=== PATIENT | male | born 1960 | race Caucasian/White ===

== ENCOUNTER → 2019-12-02 14:56 | Outpatient (CLI) | payer BC, SELFPAY ==
[2019-12-02 14:23] VITALS: BMI 26.9
[2019-12-02 17:01] LABS: Absolute Lymphocyte Count 1.12 X10^3/uL (0.83-4.51); Absolute Neutrophil Count 3.9 X10^3/uL (2.0-7.7); Basophil# 0.04 X10^3/uL; Basophil% 0.7 % (0-1); Eosinophil# 0.33 X10^3/uL; Eosinophils% 5.7 % (0-5); Hematocrit 42.1 % (40-54); Hemoglobin 13.9 g/dL (13.0-16.5); Lymphocyte # 1.12 X10^3/ul (4.0); Lymphocyte % 19.2 % (19-41); Mean Corpuscular Hgb 30.9 pg (27.0-32.0); Mean Corpuscular Volume 93.6 fL (80-94); Monocyte# 0.44 X10^3/uL; Monocyte% 7.5 % (0-10); NRBC Flagged by Analyzer 0 % (0-5); Neutrophil # 3.89 X10^3/uL (2.7-7.7); Neutrophil % 66.6 % (47-70); Platelet Count 235 K/mm3 (150-450); RBC Distribution Width CV 11.9 % (11.6-14.6); RBC Distribution Width SD 40.5 fl (35.1-43.9); White Blood Count 5.8 K/mm3 (4.4-11.0)
[2019-12-02 17:04] LABS: PSA,Total - Annual Screen 2.42 ng/mL (0.00-4.00)
[2019-12-02 17:17] LABS: ALB/GLOB Ratio 0.8 RATIO (0.9-2.4); AST(SGOT) 24 U/L (15-37); Alanine Aminotransfer ALT/SGPT 44 U/L (16-61); Albumin, Serum 3.4 g/dL (3.2-5.0); Alkaline Phosphatase 152 U/L (45-117); Anion Gap 4 (5-15); BUN 16 mg/dL (7-18); BUN/Creat Ratio 18.7 RATIO (10-20); Calcium,Total 8.4 mg/dL (8.5-10.1); Chloride 102 mmol/L (98-107); Cholesterol 153 mg/dL (200); Creatinine, Serum 0.86 mg/dL (0.70-1.30); EST Glomerular Filtration Rate 98 mL/min (>60); Est Glom Filt Rate - Afr Amer 118 mL/min (>60); Globulin 4.4 g/dL (2.2-4.2); Glucose 86 mg/dL (74-106); High Density Lipoprotein 37 mg/dL; Magnesium 2.1 mg/dL (1.6-2.6); Protein, Total 7.8 g/dL (6.4-8.2); Sodium Level 135 mmol/L (136-145); Thyroid Stim Hormone (TSH) 1.96 uIU/mL (0.358-3.74); Triglycerides 76 mg/dL; Very Low Density Lipoprotein 15 mg/dL (5-40)
== END ==
PROVIDERS: PCP Internal Medicine; Referring Provider Nurse Practitioner Family; Visit Provider Nurse Practitioner Family
DX: Z00.00 Encounter for general adult medical examination without abnormal findings (principal); R00.2 Palpitations; Z72.0 Tobacco use
CPT/HCPCS: 36415; 80053; 80061; 83735; 84153; 84443; 85025; G0103

== ENCOUNTER → 2019-12-09 09:14 | Outpatient (CLI) | payer BC, SELFPAY ==
[2019-12-02 14:23] VITALS: BMI 26.9
== END ==
PROVIDERS: PCP Internal Medicine; Referring Provider Nurse Practitioner Family; Visit Provider Nurse Practitioner Family
DX: R00.2 Palpitations (principal); Z72.0 Tobacco use
CPT/HCPCS: 93225; 93226

== ENCOUNTER → 2020-02-11 06:37 | Outpatient (CLI) | payer BC, SELFPAY ==
[2020-01-22 10:53] VITALS: BMI 26.9
--- NOTE | 2020-02-24 17:19 | STRESSREP ---
Stress Test Report Date: 02/11/2020 Procedure: Exercise tolerance test/imaging study Indications: Palpitations, arrhythmia Consent: Per the patient Procedure: The patient exercised on a Slade protocol for 8 minutes achieving a peak heart rate of 137 bpm (84% predicted maximal heart rate) with a peak blood pressure 184/82 mmHg and a peak MET capacity of 10.1 METs. The baseline ECG demonstrated normal sinus rhythm. The peak exercise ECG demonstrated no significant ischemic changes. EKG during recovery revealed no significant ischemic changes [There were no cardiac dysrhythmias pretest, during exercise, or recovery]. The functional capacity was considered normal for age. There was [no complaint of chest discomfort during exercise or recovery]. The examination was discontinued secondary to achieving target heart rate. Impression: 1. Technically adequate (percent predicted maximal heart rate greater than 85%) exercise tolerance test 2. Stress test is negative for exercise-induced EKG changes of ischemia 3. The test test is negative for exercise-induced chest pain 4. Functional capacity is normal for age 5. Nuclear images pending Myocardial perfusion imaging study: Technique: The patient was injected with 15 mCi of technetium 99m Cardiolite and subsequently rest SPECT Cardiolite nuclear imaging was obtained in the horizontal long, vertical long, and short axis views. The patient exercised on a Slade protocol. Please see above for details. The patient was injected with 45 mCi of technetium 99m Cardiolite and subsequently stress SPECT Cardiolite nuclear imaging was obtained in the horizontal long, vertical long, and short axis views. A gated Cardiolite study at peak stress was obtained. Interpretation: Rest and stress SPECT Cardiolite nuclear imaging status post realignment, normalization, and attenuation correction, demonstrates normal myocardial radioisotope uptake. The gated Cardiolite study demonstrates no significant regional wall motion abnormalities. The reported LVEF is 70%. Impression: 1. There is no evidence of significant ischemia or infarction. 2. The gated Cardiolite study reports an LVEF of 70%. This note was generated with [employer] software. It may contain incorrect words, spelling, and punctuation that were not noted in checking the note before signing.
== END ==
PROVIDERS: PCP Internal Medicine; Referring Provider Internal Medicine; Visit Provider Internal Medicine
DX: R00.2 Palpitations (principal); I49.9 Cardiac arrhythmia, unspecified
CPT/HCPCS: 78452; 93017; A9500; A4216

== ENCOUNTER 2021-05-10 16:40 | Outpatient (CLI) | payer BC, SELFPAY ==
[2021-05-10 16:58] VITALS: BP 133/81; PULSE 83; RESP 16; TEMP 37.1; O2SAT 97; BMI 26.4
[2021-05-10] MEDS: 0.9% Saline Lock 10 ML Syringe IV (16:58)
[2021-05-10 17:24] VITALS: BP 125/81; PULSE 87; RESP 16; TEMP 36.8; O2SAT 98
[2021-05-10 18:17] VITALS: BP 119/76; PULSE 80; RESP 16; TEMP 36.9; O2SAT 98
== END 2021-05-10 23:59 | disposition home or self-care (01) ==
LOC: MS3OUT 16:41 → MS3 16:41
PROVIDERS: PCP Internal Medicine; Referring Provider Nurse Practitioner Adult Health; Visit Provider Nurse Practitioner Adult Health
DX: U07.1 COVID-19 (principal)
CPT/HCPCS: J7050; M0243; A4216; Q0244

== ENCOUNTER → 2022-02-27 | Outpatient (CLI) | payer BC, SELFPAY ==
--- NOTE | 2022-02-27 10:10 | RAD_ITS ---
INDICATION: Voice change. Lump in the throat. Smoking history. EXAMINATION/TECHNIQUE: X-RAY - XR Chest 2 Views COMPARISON: None. FINDINGS: LINES/DEVICES: None. LUNGS: No consolidation, edema or effusion. No pneumothorax. MEDIASTINUM AND CARDIOVASCULAR STRUCTURES: Cardiac silhouette not enlarged. Central airways and mediastinal contour are unremarkable. BONES AND SOFT TISSUES: Degenerative changes of the thoracic spine. RAD/Chest PA and Lateral IMPRESSION: No acute cardiopulmonary disease. Electronically Signed: Judah Jackson DO at 20:41 EDT ,
== END | disposition home or self-care (01) ==
LOC: RAD 10:08
PROVIDERS: PCP Internal Medicine; Referring Provider Internal Medicine; Visit Provider Internal Medicine
DX: R22.1 Localized swelling, mass and lump, neck (principal); F17.200 Nicotine dependence, unspecified, uncomplicated; R05.9 Cough, unspecified; R49.9 Unspecified voice and resonance disorder
CPT/HCPCS: 71046

== ENCOUNTER → 2023-11-27 | Outpatient (CLI) | payer BC, SELFPAY ==
[2023-11-27 16:21] LABS: Absolute Lymphocyte Count 2.13 X10^3/uL (0.83-4.51); Absolute Neutrophil Count 3.4 X10^3/uL (2.0-7.7); Basophil# 0.03 X10^3/uL; Basophil% 0.5 % (0-1); Eosinophil# 0.47 X10^3/uL; Eosinophils% 7.1 % (0-5); Hematocrit 45.3 % (40-54); Hemoglobin 15.3 g/dL (13.0-16.5); Lymphocyte # 2.13 X10^3/ul (0.83-4.51); Lymphocyte % 32.2 % (19-41); Mean Corp Hgb Conc 33.8 g/dL (32-36); Mean Corpuscular Hgb 30.8 pg (27.0-32.0); Mean Corpuscular Volume 91.1 fL (80-94); Mean Platelet Vol. 9.3 fl (6.2-12.0); Monocyte# 0.62 X10^3/uL; Monocyte% 9.4 % (0-10); NRBC Flagged by Analyzer 0 % (0-5); Neutrophil # 3.35 X10^3/uL (2.7-7.7); Neutrophil % 50.6 % (47-70); Platelet Count 224 K/mm3 (150-450); RBC Distribution Width SD 40.2 fl (35.1-43.9); Red Blood Count 4.97 M/mm3 (4.6-6.2); White Blood Count 6.6 K/mm3 (4.4-11.0)
[2023-11-27 16:56] LABS: Vitamin D,25 Hydroxy 38.1 ng/mL
[2023-11-27 17:04] LABS: AST(SGOT) 17 U/L (15-37); Alanine Aminotransfer ALT/SGPT 24 U/L (16-61); Albumin, Serum 3.7 g/dL (3.2-5.0); Alkaline Phosphatase 89 U/L (45-117); Anion Gap 5 (5-15); BUN 12 mg/dL (7-18); BUN/Creat Ratio 14.1 RATIO (10-20); Chloride 102 mmol/L (98-107); Cholesterol 160 mg/dL (200); Creatinine, Serum 0.85 mg/dL (0.70-1.30); EST Glomerular Filtration Rate 97 mL/min (>60); Est Glom Filt Rate - Afr Amer 117 mL/min (>60); Globulin 3.6 g/dL (2.2-4.2); Glucose 94 mg/dL (74-106); High Density Lipoprotein 59 mg/dL; PSA,Total - Annual Screen 5.51 ng/mL (0.00-4.00); Potassium 4.3 mmol/L (3.5-5.1); Protein, Total 7.3 g/dL (6.4-8.2); Sodium Level 135 mmol/L (136-145); Thyroid Stim Hormone (TSH) 2.09 uIU/mL (0.358-3.74); Triglycerides 133 mg/dL; Very Low Density Lipoprotein 27 mg/dL (5-40)
== END | disposition home or self-care (01) ==
PROVIDERS: PCP Internal Medicine; Referring Provider Internal Medicine; Visit Provider Internal Medicine
DX: Z13.220 Encounter for screening for lipoid disorders (principal); Z12.5 Encounter for screening for malignant neoplasm of prostate; I10 Essential (primary) hypertension; F17.200 Nicotine dependence, unspecified, uncomplicated; E55.9 Vitamin D deficiency, unspecified; Z86.73 Personal history of transient ischemic attack (TIA), and cerebral infarction without residual deficits
CPT/HCPCS: 36415; 80053; 80061; 82306; 84153; 84443; 85025; G0103

== ENCOUNTER → 2024-12-12 | Outpatient (CLI) | payer BC, SELFPAY ==
--- NOTE | 2024-12-12 07:08 | ECHOD_ITS ---
Reason For Study Reason For Study: Chest tightness Procedure This was a 2D Doppler, Color Flow transthoracic echocardiogram. Exam performed in department. Left Ventricle Normal LV size. Mild concentric left ventricular hypertrophy. Left ventricular systolic function is normal. The left ventricular ejection fraction is 60 %. Stage 1 diastolic dysfunction. No regional wall motion abnormalities noted. Right Ventricle Normal RV size. Normal systolic function. Atria Normal left atrium. Normal right atrium. Mitral Valve Normal mitral valve. Tricuspid Valve Normal tricuspid valve. Mild (1+) tricuspid valve insufficiency. Pulmonary artery systolic pressure is 28 mmHg. Aortic Valve Trisinus/trileaflet aortic valve. Pulmonic Valve Normal pulmonic valve. Great Vessels Normal aortic root. The pulmonary artery is normal size. Inferior vena cava collapse with respiration. Pericardium/Pleural No pericardial effusion. MMode/2D Measurements & Calculations LVIDd: 3.7 cm IVSd: 1.2 cm Ao root diam: 3.3 cm LVIDs: 2.3 cm LVPWd: 1.2 cm RVDd: 3.1 cm FS: 38.5 % LAV(MOD-bp): 37.2 ml LVAd ap4: 23.2 cm2 LVAd ap2: 26.8 cm2 LAV(MOD-bp) Indexed: 18.3 ml/m2 LVLd ap4: 7.5 cm LVLd ap2: 8.1 cm LAV(MOD-sp2): 34.7 ml EDV(MOD-sp4): 60.7 ml EDV(MOD-sp2): 74.4 ml LAV(MOD-sp4): 39.5 ml EDV(sp4-el): 60.7 ml EDV(sp2-el): 74.9 ml LVAs ap4: 14.3 cm2 LVAs ap2: 15.8 cm2 LVLs ap4: 6.6 cm LVLs ap2: 7.0 cm ESV(MOD-sp4): 27.8 ml ESV(MOD-sp2): 29.6 ml ESV(sp4-el): 26.0 ml ESV(sp2-el): 30.2 ml EF(MOD-sp4): 54.2 % EF(MOD-sp2): 60.2 % EF(sp4-el): 57.1 % SV(MOD-sp4): 32.9 ml SV(MOD-sp2): 44.8 ml SV(sp4-el): 34.7 ml SI(MOD-sp4): 16.2 ml/m2 SI(MOD-sp2): 22.0 ml/m2 LA A4 area: 15.5 cm2 LA dimension(2D): 3.3 cm RA A4 area: 14.1 cm2 TAPSE: 2.6 cm Time Measurements MV dec time: 0.18 sec Doppler Measurements & Calculations MV E max jalen: 58.6 cm/sec Lat Peak E' Jalen: 8.9 cm/sec Med Peak E' Jalen: 7.3 cm/sec MV A max jalen: 70.8 cm/sec E/E' lat: 6.6 E/E' med: 8.1 MV E/A: 0.83 Ao V2 max: 113.1 cm/sec LV V1 max: 91.1 cm/sec MV dec slope: 325.9 cm/sec2 Ao max P.1 mmHg LV V1 max P.3 mmHg PA V2 max: 88.8 cm/sec TR max jalen: 247.2 cm/sec TR max P.4 mmHg ECHO/Echo Complete Interpretation Summary Normal LV size. Left ventricular systolic function is normal. The left ventricular ejection fraction is 60 %. Stage 1 diastolic dysfunction. Ordering Physician: Mariam Hernandez Referring Physician: Mariam Hernandez Performed By: Jacquelyn Muhammad RDCS
--- OUTSIDE RECORDS SUMMARY | 2024-12-12 07:11 | XMS RPT_ITS | CCD ---
Author Organization [facility] Care Team Providers Care Victorian Literature Professor Name Role Phone Dr. Tamy Hernandez Primary Care Provider Dr. Tamy Hernandez Attending Provider [facility] Primary Care Provider Unav ailable Tamy Hernandez Primary Care Provider NO, DOCTOR ON Consulting Unavailable OTIS GANDARA Attending Unavailable OTIS GANDARA Primary Care Unavailable OTIS GANDARA Admitting Unavailable STEPHIE COLLINS Admitting Unavailable OTIS GANDARA Referring Unavailable TAMY HERNANDEZ Primary Care Unavailable PATRICK KAY Attending Unavailable O'SHELLESTEFANIA Attending Unavailable Yasmin'SHELLESTEFANIA Referring Unavailable TAMY HERNANDEZ Primary Care Unavailable Dr. Tamy Hernandez MD Primary Care Provider [phone] Dr. Tamy Hernandez MD Attending Provider Tamy Hernandez Primary Care Unavailable Tamy Hernandez Attending Unavailable Tamy Hernandez Attending Unavailable Tamy Hernandez Referring Unavailable Tamy Hernandez Primary Care Unavailable Tamy Hernandez Primary Care Unavailable Tamy Hernandez Attending Unavailable Tamy Hernandez Referring Unavailable Medications Current Medications Medication Drug Class(es) Dates Sig (Normalized) Sig (Original) amoxicillin 875 mg / clavulanate 125 mg oral tablet (7 sources) Penicillin-class Antibacterial Start: 06-20-2023 End: 06-28-2023 take 1 tablet by mouth in the morning amoxicillin-clav ulanate (Augmentin) 875-125 MG tablet Take 1 tablet by mouth in the morning and 1 tablet before bedtime. Do all this for 16 doses. 16 tablet 0 06/20/2023 06/28/2023 Active Start: 06-18-2023 End: 06-20-2023 amoxicillin-clavulanate (Aug mentin) 875-125 MG per tablet 1 tablet aspirin 81 mg delayed release oral tablet (19 sources) Platelet Aggregation Inhibitor, Nonsteroidal Anti-inflammatory Drug Start: 06-21-2023 take 1 tablet by mouth once daily Aspirin 81 mg tablet,delayed release (DR/EC) Active 81 mg PO DAILY June 21, 2023 1:00am Start: 06-19-2023 End: 06-20-2024 aspirin 81 MG chewable table t Chew 1 tablet (81 mg) daily. 30 tablet 2 06/21/2023 06/20/2024 Active atorvastatin 20 mg oral tablet (20 sources) HMG-CoA Reductase Inhibitor Start: 11-29-2023 End: 08-26-2024 take 1 tablet by mouth once daily Atorvastatin 20 mg tablet Active 20 mg PO DAILY 90 3 August 26, 2024 4:47pm Start: 06-18-2023 End: 06-20-2024 take 1 tablet by mouth once daily Atorvastatin 40 mg tablet Discontinued 40 mg PO DAILY June 21, 2023 1:00am November 29, 2023 4:00pm Completed/Discontinued Medications Medication Drug Class(es) Dates Sig (Normalized) Sig (Original) Acetaminophen (2 sources) Start: 06-18-2023 End: 06-20-2023 take 1 tablet by mouth every six hours as needed for pain and fever acetaminophen (Tylenol) tablet 650 mg albuterol 0.833 mg/ml / ipratropium bromide 0.167 mg/ml inhalation solution (2 sources) Anticholinergic, beta2-Adrenergic Agonist Start: 06-18-2023 End: 06-20-2023 ipratropium-albuter ol (Duo-Neb) 0.5-2.5 mg/3 mL nebulizer solution 3 mL bisacodyl 10 mg rectal suppository (2 sources) Stimulant Laxative Start: 06-18-2023 End: 06-20-2023 take 10 mg rectal route every twenty-four hours as needed for constipation bisacodyl (Dulcolax) suppository 10 mg clopidogrel 75 mg oral tablet (13 sources) P2Y12 Platelet Inhibitor Start: 06-19-2023 End: 11-29-2023 take 1 tablet by mouth once daily Clopidogrel 75 mg tablet Discontinued 75 mg PO DAILY June 21, 2023 1:00am November 29, 2023 4:00pm dexamethasone 6 mg oral tablet (2 sources) Corticosteroid Start: 05-04-2021 End: 02-27-2022 take 1 tablet by mouth once daily Dexamethasone 6 mg tablet Discontinued 6 mg PO DAILY 10 May 04, 2021 1:00am February 27, 2022 9:01am 0.4 ml enoxaparin sodium 100 mg/ml prefilled syringe (2 sources) Low Molecular Weight Heparin Start: 06-19-2023 End: 06-20-2023 enoxaparin (Lovenox) syringe 40 mg folic acid 1 mg oral tablet (2 sources) Start: 06-18-2023 End: 06-20-2023 folic acid (Folvite) tablet 1 mg gadobutrol (Gadavist) injection 9 mL (2 sources) Start: 06-20-2023 End: 06-20-2023 gadobutrol (Gadavist) injection 9 mL 1 ml hydrALAZINE hydrochloride 20 mg/ml injection (2 sources) Arteriolar Vasodilator Start: 06-18-2023 End: 06-20-2023 hydrALAZINE (Apresoline) injection 10 mg labetalol hydrochloride 5 mg/ml injectable solution (2 sources) beta-Adrenergic Soy Start: 06-18-2023 End: 06-20-2023 labetalol (Normodyne,Trandate ) injection 10 mg ondansetron ODT (Zofran-ODT) disintegrating tablet 4 mg (2 sources) Start: 06-18-2023 End: 06-20-2023 take 1 tablet by mouth every eight hours as needed for nausea and vomiting ondansetron ODT (Zofran-ODT) disintegrating tablet 4 mg polyethylene glycol 3350 69841 mg powder for oral solution (2 sources) Osmotic Laxative Start: 06-18-2023 End: 06-20-2023 take 17 g by mouth every twenty-four hours as needed for constipation polyethylene glycol (PEG) 3350 (Miralax) packet 17 g 1000 ml sodium chloride 9 mg/ml injection (6 sources) Start: 06-18-2023 End: 06-20-2023 sodium chloride 0.9 % infusion Start: 06-18-2023 End: 06-20-2023 take 5-40 mL intravenously every twelve hours sodium chloride 0.9% (NS) flush 5-40 mL thiamine 100 mg oral tablet (2 sources) Start: 06-18-2023 End: 06-20-2023 thiamine (Vitamin B1) tablet 100 mg Problems Problem Classification Problem Date Documented Date Episodic/Chronic Acute cerebrovascular disease (20 sources) Cerebrovascular accident; Translations: [Cerebral infarction, unspecified] Onset: 4 06-18-2023 Chronic Cardiac dysrhythmias (2 sources) Cardiac arrhythmia; Translations: [Other specified cardiac arrhythmias] 01-22-2020 Chronic Cardiac dysrhythmias (1 source) Palpitations; Translations: [Palpitations] Onset: 5 Episodic Conditions associated with dizziness or vertigo (1 source) Dizziness and giddiness; Translations: [Dizziness and giddiness] Onset: 5 Episodic Conduction disorders (2 sources) Left anterior fascicular block; Translations: [Left anterior fascicular block] Onset: 5 11-19-2024 Chronic Essential hypertension (4 sources) Essential hypertension; Translations: [Essential (primary) hypertension] Onset: 5 05-04-2021 Chronic Malaise and fatigue (2 sources) Weakness; Translations: [Weakness] Onset: 4 Episodic Nonspecific chest pain (4 sources) Tight chest; Translations: [Other chest pain] Onset: 5 11-19-2024 Episodic Other circulatory disease (2 sources) Elevated blood pressure; Translations: [Elevated blood-pressure reading, without diagnosis of hypertension] 01-22-2020 Episodic Other lower respiratory disease (3 sources) Cough; Translations: [Cough] Episodic Other nutritional; endocrine; and metabolic disorders (1 source) Cholesterol level - finding; Translations: [Lipoprotein deficiency] 11-29-2023 Chronic Other nutritional; endocrine; and metabolic disorders (2 sources) Lipoprotein deficiency; Translations: [Lipoprotein deficiency] Onset: 5 Chronic Other nutritional; endocrine; and metabolic disorders (2 sources) Overweight in adulthood with body mass index of 25 or more but less than 30; Translations: [Body mass index (BMI) 27.0-27.9, adult] 05-09-2021 Episodic Other screening for suspected conditions (not mental disorders or infectious disease) (2 sources) Abnormal electrocardiogram [ECG] [EKG]; Translations: [Abnormal electrocardiogram [ECG] [EKG]] Onset: 5 Episodic Other skin disorders (2 sources) Feeling of lump in throat; Translations: [Localized swelling, mass and lump, neck] 02-27-2022 Episodic Other skin disorders (1 source) Localized swelling, mass and lump, neck; Translations: [Swelling, mass, or lump in head and neck] Episodic Other upper respiratory disease (2 sources) Change in voice; Translations: [Unspecified voice and resonance disorder] 02-27-2022 Episodic Other upper respiratory disease (1 source) Unspecified voice and resonance disorder; Translations: [Other voice and resonance disorders] Episodic Sprains and strains (1 source) Injury of forearm; Translations: [Strain of unspecified muscles, fascia and tendons at forearm level, left arm, initial encounter] 11-23-2022 Episodic Substance-related disorders (4 sources) Tobacco dependence syndrome; Translations: [Nicotine dependence, unspecified, uncomplicated] Onset: 4 Chronic Viral infection (2 sources) Disease caused by 2019-nCoV; Translations: [COVID-19] 05-04-2021 Episodic Results Test Name Value Interpretation Reference Range Facility MR/Jose 11-19-2024 /DENISE [facility] [address] [place] [address] [place], [place] [id number] OFFICE VISIT Date of Service: 11/19/24 MR#: [id number] Acct: [id number] Name: LOLISRubenRONEY Deanna Rep #: [id number] : 1960 Provider: Dr. Tamy holloway MD Age/Sex: 64/M Location[facility] Status: Signed Intake Vital Signs 11/29/23 16:01 11/19/24 11:34 Height 5 ft 10 in 5 ft 10 in Weight: 180 lb 6 oz 188 lb 4 oz BMI 25.9 27.0 BP 113/71 143/83 H Blood Pressure Location Lt brachial Lt brachial Position Sitting Sitting Respiration 16 16 Pulse 73 72 Pulse Source Monitor Monitor Temp 98.7 F 98.4 F Temp Source Temporal Temporal Pulse Oximetry (%) 96 95 Oxygen Delivery Method room air room air Intake Visit Reasons: Chest Tightness, Possible Anxiety Chief Complaint: Chest tightness Order Department Supervisor Required: No Accompanied by: Self Is patient in pain?: Yes (Chest pressure) Pain scale (1-10): 3 Allergies No Known Allergies Allergy (Verified 11/19/24 11:29) Medications ???Medication ???Instructions ???Recorded ???Confirmed ???Type aspirin 81 mg tablet,delayed 81 mg PO DAILY 06/21/23 11/19/24 H istory release atorvastatin 20 mg tablet 20 mg PO DAILY #90 tabs 08/26/24 0 11/19/24 Rx PFSH Medical History (Updated 11/19/24 @ 13:[address] Tamy Hernandez MD) LAFB (left anterior fascicular block) Chest tightness Low HDL (under 40) Surgical History No pertinent past surgical history Family History Father Myocardial infarction, Onset Age: 75 CVA (cerebral vascular accident) Diabetes Sister Myocardial infarction Social History Smoking Status: Current every day smoker Tobacco: How many years used: 30 alcohol intake: current alcohol intake frequency: 0-2 drinks per day Alcohol type: beer substance use type: does not use what type of physical activity do you participate in: none HPI HPI Chief Complaint: Chest tightness Details: RONEY SMALL, is a 64 M who presents to the office today for an acute care follow-up visit. 64-year-old gentleman who has a history of essential hypertension on no medication treatment. He has abnormal lipid levels, with prior history of TIA versus CVA in May 2023. He was admitted to [facility]. He had MRI with subtle suggestion of ischemic change. He underwent TANA which was unremarkable, and surface echo which did not show any significant abnormal findings. Subsequently was released on atorvastatin and aspirin. He was a former smoker, having quit without episode. Generally speaking he has been doing okay until about 3 weeks ago when he started having episodes of a sense of tightness across the upper chest, associated with some vague mild sense of shortness of breath. Perhaps a sense of mild lightheadedness but no vertigo, nothing making him feel like he would pass out. He notes these episodes predominantly in the mornings but sometimes in the evenings but not with activity per se. He has not had gabby palpitations to his knowledge. No fluttering sensation in the chest. No nausea or vomiting. Appetite has been good. No reflux symptoms. Otherwise no dyspnea on exertion. Recently was on vacation in [place] at higher altitude and did not have any significant exertional symptoms there. He was doing some longer walks, perhaps some slopes but not gabby climbing. But again nonetheless did not have any obvious exertional symptoms such as dyspnea with activity. 2020 had stress testing completed where he exercised 8 minutes on a Slade protocol, 10.1 METS, with EF estimated at 70% with no ischemic findings. In August 2018, at work, he had evaluation by their market research coordinator. Component was EKG which showed normal sinus rhythm. EKG scanned to chart. He brought that in today. Review of systems per chart. Physical exam. Vital signs on chart. Sclera are clear. No cervical or supraclavicular lymph nodes enlarged or tender. No clear thyromegaly. No thyroid nodules readily palpable. Lungs are without wheeze, rhonchi, rales. No E/A changes are heard. Heart is regular. Not tachycardic. No clear murmur, rub, or gallop is identified. The abdomen is soft. Bowel sounds are present. Nontender nondistended abdomen. No clear palpable masses in the abdomen. No significant leg edema. ROS Const Constitutional: No body ache, chills, excessive sweating, fatigue, fever(s), frequent falls, headache(s), snoring, weakness or change in appetite Eyes Eyes: No blurry vision, change in vision, eye pain or Light sensitivity ENT ENT: No abnormal hearing, ear or mastoid pain, tinnitus, nasal congestion, headache(s), neck pain or sore throat Resp Respiratory: Positive for shortness o (more content not included)... Normal [facility] 3609-26-2023 36 error [facility] 3609-11-2023 36 Left detailed message requesting a call back, to confirm that pt is following up with cardiology closer to home or if I can rs with our office [facility] No Panel Informationon 09-02 1. The patient wore the recorder for 28 days and baseline recordings show sinus rhythm at 85 bpm. The avg HR is 80 bpm (min 54/max 155). There was no significant atrial or ventricular ectopy (less than 1% of all beats) 2. The patient did not call in any symptomatic events. 3. There were no significant automatically triggered, asymptomatic events. 4. In conclusion, this is a normal event monitor. There are no arrhythmias to explain the patient's symptoms. CV EPIPHANY No Panel InformationOrdered By: Jan Kaiser on 09-03-2023 [facility] Phone: on 07-18-2023 36 Appt letter mailed to pt [place] [address] Received return call from nurse rWanda. She also has been unable to reach pt and has left multiple messages. In previous encounter letter was sent to contact office about scheduling. Keep this appt for EM and mail letter or cancel? [place] [address] Left detailed message for Wanda RN client care representative to return call. EM scheduled 08/01/23 at 10:00 [address] [place] [address]on 07-17-2023 36 Reviewed chart, looks like we have never seen pt. Dr Lopez done TANA. Pt was suppose to follow up with Dr Kaiser. Caity left messages for pt. No follow up ever scheduled. [place] [address] I rec'd a call from Rosibel Muñoz nurse welfare case worker. She called to follow up if pt had upcoming appt. She also said if office needs any assistance to call her at [phone], ext [phone]. [facility] 36on 07-02-2023 36 Lvm for pt to return call. Lvm for pt's significant other. Message left instructing pt and sig oth to call back to be scheduled with [facility] or a facility closer to home. I will mail the orders, instructions and contact information to the pt's address provided in the chart [place] [address]on 06-22-2023 36 LVM instructing pt to call back to confirm location for [place] 7092506-21-2023 36 Referred to the cryptogenic stroke program by neurology he was discharged home on 06/21/2023 and will need a 30-day event monitor and follow-up with Dr. Kaiser. He lives in [place] so not sure if he could do a mail out monitor if available. There is no mail out monitor so he will have to be scheduled here unless he wants to follow-up with cardiology closer to home Normal [facility] CALCIUM, IONIZEDon CALCIUM IONIZED 4.50 mg/dL Normal 4.30-5.20 [facility] Comment on above: Performed By: #### L [id number] ####Infant Lead Teacher: SAVANNAH DEL CID ([id number])[address] PH, IONIZED CALCIUM 7.41 Normal 7.31-7.46 [facility] Comment on above: Performed By: #### L [id number] ####Infant Lead Teacher: SAVANNAH DEL CID ([id number])[facility] ([address] CARECOORDon 06-20-2023 CARECOORD Called PCP office left second message awaiting callback. Left message at [facility] to see if they offer Sleep medicine as well. Normal [facility] CARECOORD Tcc met with neuro and dr massiel JACKSON for discharge- he is to do orders today - no needs . [facility] CBC W Auto Differential pane l (Bld)Ordered By: Conchita Pinto on 06-20-2023 Basophils (Bld) [#/Vol] 0.0 10*3/uL 0.0 - 0.2 10*3/uL [facility] Basophils/100 WBC (Bld) 0.5 % 0.0 - 2.0 % [facility] Eosinophils (Bld) [#/Vol] 0.4 10*3/uL 0.0 - 0.5 10*3/uL [facility] Eosinophils/100 WBC (Bld) 6.6 % High 1.0 - 6.0 % [facility] Erythrocyte distribution width (RBC) [Ratio] 12.3 % 11.5 - 14.5 % [facility] Hematocrit (Bld) [Volume fraction] 44.5 % 40.0 - 52.0 % [facility] Hemoglobin (Bld) [Mass/Vol] 15.2 g/dL 13.0 - 18.0 g/dL [facility] Interpretation and review of laboratory results Abnormal [facility] Lymphocytes (Bld) [#/Vol] 1.7 10*3/uL 1.0 - 4.3 10*3/uL [facility] Lymphocytes/100 WBC (Bld) 26.5 % 20.0 - 40.0 % [facility] MCH (RBC) [Entitic mass] 31.6 pg 26. 0 - 34.0 pg [facility] MCHC (RBC) [Mass/Vol] 34.3 % 32.0 - 36.0 % [facility] MCV (RBC) [Entitic vol] 92.3 fL 80.0 - 98.0 fL [facility] Monocytes (Bld) [#/Vol] 0.7 10*3/uL 0.0 - 0.8 10*3/uL [facility] Monocytes/100 WBC (Bld) 10.8 % High 2.0 - 10.0 % [facility] Neutrophils (Bld) [#/Vol] 3.6 10*3/uL 1.8 - 7.0 10*3/uL [facility] Neutrophils/100 WBC (Bld) 55.6 % 40.0 - 80.0 % [facility] Nucleated RBC/100 WBC (Bld) [Ratio] 0.1 % [facility] Platelet mean volume (Bld) [Entitic vol] 7.6 fL 7.4 - 12.4 fL [facility] Platelets (Bld) [#/Vol] 207 10*3/uL 140 - 440 10*3/uL [facility] RBC (Bld) [#/Vol] 4.82 10*6/uL 4.40 - 5.9 0 10*6/uL [facility] WBC (Bld) [#/Vol] 6.4 10*3/uL 3.6 - 10.7 10*3/uL [facility] CBC WITH AUTO DIFFERENTIALon 06-20-2023 Basophils (Bld) [#/Vol] 0.0 10*3/uL Normal 0.0-0.2 [facility] Comment on above: Performed By: #### L [id number] ####Infant Lead Teacher: SAVANNAH DEL CID ([id number])[facility])[address] [place] [address] Basophils/100 WBC (Bld) 0.5 % Normal 0.0-2.0 [facility] Comment on above: Performed By: #### L [id number] ####Infant Lead Teacher: SAVANNAH DEL CID ([id number])[facility])[address] [place] [address] Eosinophils (Bld) [#/Vol] 0.4 10*3/uL Normal 0.0-0.5 [facility] Comment on above: Performed By: #### L [id number] ####Infant Lead Teacher: SAVANNAH DEL CID ([id number])[facility])[address] [place] [address] Eosinophils/100 WBC (Bld) 6.6 % High 1.0-6.0 [facility] Comment on above: Performed By: #### L [id number] ####Infant Lead Teacher: SAVANNAH DEL CID ([id number])[facility])[address] [place] [address] Erythrocyte distribution width (RBC) [Ratio] 12.3 % Normal 11.5-14.5 [facility] Comment on above: Performed By: #### L [id number] ####Infant Lead Teacher: SAVANNAH DEL CID ([id number])[facility])[address] [place] [address] ERYTHROCYTE MEAN CORPUSCULAR HEMOGLOBIN CONCENTRATION (G/DL) BY AUTOMATED 34.3 % Normal 32.0-36.0 [facility] Comment on above: Performed By: #### L [id number] ####Infant Lead Teacher: SAVANNAH DEL ICD ([id number])[facility])[address] [place] [address] Hematocrit (Bld) [Volume fraction] 44.5 % Normal 40.0-52.0 [facility] Comment on above: Performed By: #### L [id number] ####Infant Lead Teacher: SAVANNAH DEL CID ([id number])[facility])[address] [place] [address] Hemoglobin (Bld) [Mass/Vol] 15.2 g/dL Normal 13.0-18.0 [facility] Comment on above: Performed By: #### L [id number] ####Infant Lead Teacher: SAVANNAH DEL CID ([id number])[facility])[address] [place] [address] Lymphocytes (Bld) [#/Vol] 1.7 10*3/uL Normal 1.0-4.3 [facility] Comment on above: Performed By: #### L [id number] ####Infant Lead Teacher: SAVANNAH DEL CID ([id number])[facility])[address] [place] [address] Lymphocytes/100 WBC (Bld) 26.5 % Normal 20.0-40.0 [facility] Comment on above: Performed By: #### L [id number] ####Infant Lead Teacher: SAVANNAH DEL CID ([id number])[facility])[address] [place] [address] MCH (RBC) [Entitic mass] 31.6 pg Normal 26.0-34.0 [facility] Comment on above: Performed By: #### L [id number] ####Infant Lead Teacher: SAVANNAH DEL CID ([id number])[facility])[address] [place] [address] MCV (RBC) [Entitic vol] 92.3 fL Normal 80.0-98.0 [facility] Comment on above: Performed By: #### L [id number] ####Infant Lead Teacher: SAVANNAH DEL CID ([id number])[facility])[address] [place] [address] Monocytes (Bld) [#/Vol] 0.7 10*3/uL Normal 0.0-0.8 [facility] Comment on above: Performed By: #### L [id number] ####Infant Lead Teacher: SAVANNAH DEL CID ([id number])[facility] ([facility])[address] [place] [address] [place] Monocytes/100 WBC (Bld) 10.8 % High 2.0-10.0 [facility] Comment on above: Performed By: #### L [id number] ####Infant Lead Teacher: SAVANNAH DEL CID ([id number])[facility])[address] [place] [address] [place] Neutrophils (Bld) [#/Vol] 3.6 10*3/uL Normal 1.8-7.0 [facility] Comment on above: Performed By: #### L [id number] ####Infant Lead Teacher: SAVANNAH DEL CID ([id number])[facility])[address] [place] [address] Neutrophils/100 WBC (Bld) 55.6 % Normal 40.0-80.0 [facility] Comment on above: Performed By: #### L [id number] ####Infant Lead Teacher: SAVANNAH DEL CID ([id number])[facility])[address] [place] [address] NRBC (PER 100 WBCS) BY AUTOMATED COUNT 0.1 /100 WBCs Normal 0.0-2.0 [facility] Comment on above: Performed By: #### L [id number] ####Infant Lead Teacher: SAVANNAH DEL CID ([id number])[facility])[address] [place] [address] Platelet mean volume (Bld) [Entitic vol] 7.6 fL Normal 7.4-12.4 [facility] Comment on above: Performed By: #### L [id number] ####Infant Lead Teacher: SAVANNAH DEL CID ([id number])[facility] ([facility])[address] [place] [address] [place] Platelets (Bld) [#/Vol] 207 10*3/uL Normal 140-440 [facility] Comment on above: Performed By: #### L [id number] ####Infant Lead Teacher: SAVANNAH DEL CID ([id number])[facility])[address] RBC (Bld) [#/Vol] 4.82 10*6/uL Normal 4.40-5.90 [facility] Comment on above: Performed By: #### L [id number] ####Infant Lead Teacher: SAVANNAH DEL CID ([id number])[facility] ([facility])[address] [place] [address] WBC (Bld) [#/Vol] 6.4 10*3/uL Normal 3.6-10.7 [facility] Comment on above: Performed By: #### L [id number] ####Infant Lead Teacher: SAVANNAH DEL CID ([id number])[facility] ([facility])[address] [place] [address] COMPREHENSIVE METABOLIC PANE Selvin 06-20-2023 Albumin [Mass/Vol] 3.9 g/dL Normal 3.5-5.0 [facility] Comment on above: Performed By: #### L [id number], [id number], [id number] ####Infant Lead Teacher: SAVANNAH DEL CID ([id number])[facility] ([facility])[address] [place] [address] ALP [Catalytic activity/Vol] 86 U/L Normal 38-126 [facility] Comment on above: Performed By: #### L [id number], [id number], [id number] ####Infant Lead Teacher: SAVANNAH DEL CID ([id number])[facility] [facility] ([facility])[address] [place] [address] ALT [Catalytic activity/Vol] 20 U/L Normal 0-49 [facility] Comment on above: Performed By: #### L [id number], [id number], LAB17 ####Infant Lead Teacher: SAVANNAH DEL CID ([id number])[facility] ([facility])[address] [place] [address] Anion gap [Moles/Vol] 8 mmol/L Normal 3-13 [facility] Comment on above: Performed By: #### L AB103, [id number], LAB17 ####Infant Lead Teacher: SAVANNAH DEL CID ([id number])[facility])[address] [place] [address] AST [Catalytic activity/Vol] 28 U/L Normal 15-46 [facility] Comment on above: Performed By: #### Lauren ABKymberly, [id number], LAB17 ####Infant Lead Teacher: SAVANNAH DEL CID ([id number])[facility] ([facility])[address] [place] [address] Bilirubin [Mass/Vol] 0.8 mg/dL Normal 0.2-1.3 [facility] Comment on above: Performed By: #### Lauren ABKymberly, [id number], LAB17 ####Infant Lead Teacher: SAVANNAH DEL CID ([id number])[facility] ([facility])[address] [place] [address] Calcium [Mass/Vol] 8.6 mg/dL Normal 8.4-10.4 [facility] Comment on above: Performed By: #### Lauren MONTANA, [id number], LAB17 ####Infant Lead Teacher: SAVANNAH DLE CID ([id number])[facility] [place] [address] Chloride [Moles/Vol] 108 mmol/L High 98-107 [facility] Comment on above: Performed By: #### Lauren MONTANA, [id number], LAB17 ####Infant Lead Teacher: SAVANNAH DEL CID ([id number])[facility] [place] [address] CO2 [Moles/Vol] 20 mmol/L Low 22-30 [facility] Comment on above: Performed By: #### Lauren MONTANA, [id number], LAB17 ####Infant Lead Teacher: SAVANNAH DEL CID ([id number])[facility] [place] [address] [place] Creatinine [Mass/Vol] 0.69 mg/dL Normal 0.66-1.25 [facility] Comment on above: Performed By: #### Lauren AB103, [id number], LAB17 ####Infant Lead Teacher: SAVANNAH DEL CID ([id number])[facility] ([facility])[address] [place] [address] GLOMERULAR FILTRATION RATE ML/MIN/1.73 SQ M.PREDICTED >90.0 Normal >60.0 [facility] Comment on above: Result Comment: Calc ulation based on the Chronic Kidney Disease Epidemiology Collaboration (CKD-EPI) equation refit without adjustment for race Performed By: #### Lauren AB103, [id number], LAB17 ####Infant Lead Teacher: SAVANNAH DEL CID ([id number])[facility])[address] [place] [address] Glucose [Mass/Vol] 99 mg/dL Normal 70-100 [facility] Comment on above: Performed By: #### Lauren AB103, [id number], LAB17 ####Infant Lead Teacher: SAVANNAH DEL CID ([id number])[facility])[address] [place] [address] Potassium [Moles/Vol] 4.1 mmol/L Normal 3.5-5.1 [facility] Comment on above: Performed By: #### Lauren MONTANA, [id number], LAB17 ####Infant Lead Teacher: SAVANNAH DEL CID ([id number])[facility])[address] [place] [address] Protein [Mass/Vol] 7.2 g/dL Normal 6.3-8.2 [facility] Comment on above: Performed By: #### Lauren AB103, [id number], LAB17 ####Infant Lead Teacher: SAVANNAH DEL CID ([id number])[facility])[address] [place] [address] Sodium [Moles/Vol] 136 mmol/L Normal 135-145 [facility] Comment on above: Performed By: #### Lauren AB103, [id number], LAB17 ####Infant Lead Teacher: SAVANNAH DEL CID ([id number])[facility])[address] [place] [address] [place] Urea nitrogen [Mass/Vol] 13 mg/dL Normal 9-20 [facility] Comment on above: Performed By: #### L AB103, [id number], LAB17 ####Infant Lead Teacher: SAVANNAH DEL CID ([id number])[facility])[address] [place] [address] [place] Calcium.ionized [Moles/Vol]o n 06-20-2023 Calcium.ionized (Bld) [Moles/Vol] 4.50 mg/dL 4.30 - 5.20 mg/dL [facility] Interpretation and review of laboratory results Normal [facility] PH, IONIZED CALCIUM 7.41 7.31 - 7.46 [facility] Comprehensive metabolic 1998 panelon 06-20-2023 Albumin [Mass/Vol] 3.9 g/dL 3.5 - 5.0 g/dL [facility] ALP [Catalytic activity/Vol] 86 U/L 38 - 126 U/L [facility] ALT [Catalytic activity/Vol] 20 U/L 0 - 49 U/L [facility] Anion gap [Moles/Vol] 8 mmol/L 3 - 13 mmol/L [facility] AST [Catalytic activity/Vol] 28 U/L 15 - 46 U/L [facility] Bilirubin [Mass/Vol] 0.8 mg/dL 0.2 - 1 .3 mg/dL [facility] Calcium [Mass/Vol] 8.6 mg/dL 8.4 - 10. 4 mg/dL [facility] Chloride [Moles/Vol] 108 mmol/L High 98 - 10 7 mmol/L [facility] CO2 [Moles/Vol] 20 mmol/L Low 22 - 30 mmol/L [facility] Creatinine [Mass/Vol] 0.69 mg/dL 0.66 - 1.25 mg/dL [facility] GFR/1.73 sq M.predicted MDRD (S/P/Bld) [Vol rate/Area] - PINF [facility] Comment on above: Calculation based on the Chronic Kidney Disease Epidemiology Collaboration (CKD-EPI) equation refit without adjustment for race Glucose [Mass/Vol] 99 mg/dL 70 - 100 mg/dL [facility] Interpretation and review of laboratory results Abnormal [facility] Potassium [Moles/Vol] 4.1 mmol/L 3.5 - 5.1 mmol/L [facility] Protein [Mass/Vol] 7.2 g/dL 6.3 - 8.2 g/dL [facility] Sodium [Moles/Vol] 136 mmol/L 135 - 145 mmol/L [facility] Urea nitrogen [Mass/Vol] 13 mg/dL 9 - 20 mg/d L [facility] Consulton 06-20-2023 Consult Attestation signed by Dejah Lopez MD at 06/20/2023 10:02 AM This attestation note confirms that I have separately examined and evaluated the patient. I have reviewed, agree and updated the findings of the guest relations executive. Cardiac MAVIS, no contraindications. TANA indicated. Electronically signed by @MEMDNR@ on @TDNR@ at @NOWNR@ TANA consult Reason for consult: CVA HPI: Roney Small is 63 yo M with PMHx tobacco abuse ( 6-8 cigarettes daily x 40 years), ETOH use (3 12oz beers daily) who presented to OSH 06/18 with acute onset of LUE/LLE weakness. Found to have subtle, very tiny focus of probable acute infarct in the motor cortex of the posterior right frontal lobe, near the vertex on MRI. TTE showed: Left Ventricle: Left ventricle is smaller than normal. Mildly increased wall thickness. Hyperdynamic left ventricular systolic function. EF by 2D Simpsons Biplane is 71%. Normal wall motion. Right Ventricle: Right ventricle size is normal. Normal systolic function. Interatrial Septum: No interatrial shunt visualized on color Doppler. Agitated saline study was negative with and without provocation. Right Atrium: Right atrium is mildly dilated. Cardiology team was consulted for TANA. On review : patient denies odynophagia, dysphagia, dental issues or GI bleed. No prior history with difficult endoscopy. Diet : NPO Physical exam: GEN : Awake, alert, comfortable CV :Normal S1S2, regular, no murmur. Pulm : CTAB Labs: Hgb : 15.2 g/dL Platelets: 207 10*3/uL Indication for TANA: Ischemic CVA Contraindications: None Informed consent: Risks, benefits and complications were explained to the patient who understood the risks and agrees with the procedure. Assessment and Plan: - No contraindication for TANA, consent obtained, orders placed. - Plan for TANA today - Please keep NPO Patient was discussed with the attending, Dr. Lopez, who agrees with the assessment and plan. Normal [facility] IDNon 06-20-2023 IDN Problem: Knowledge Deficit Goal: Patient/family/careg iver demonstrates understanding of disease process, treatment plan, medications, and discharge instructions Outcome: Progressing Problem: Potential for Compromised Skin Integrity Goal: Skin Integrity is Maintained or Improved Outcome: Progressing Goal: Nutritional status is improving Outcome: Progressing Problem: Urinary Incontinence Goal: Perineal skin integrity is maintained or improved Outcome: Progressing Normal [facility] Laboratory - Chemistry and C hemistry - challengeon 06-20-2023 Magnesium [Mass/Vol] 1.8 mg/dL 1.6 - 2 .3 mg/dL [facility] MAGNESIUMon 06-20-2023 Magnesium [Mass/Vol] 1.8 mg/dL Normal 1.6-2.3 [facility] Comment on above: Performed By: #### L AB103, [id number], LAB17 ####Infant Lead Teacher: SAVANNAH DEL CID ([id number])[facility] ([address] MR Brain WO and W contrast I [facility] 06-20-2023 1. Subtle, very tiny focus of probable acute infarct in the motor cortex of the posterior right frontal lobe, near the vertex. 2. No evidence of hemorrhagic transformation. 3. No abnormal enhancement. 4. Pansinusitis. Report Dictated on Electronically Signed By: René Atkinson MD Electronically Signed Date/Time: 06/20/2023 8:37 AM [facility] Patient Name: RONEY SMALL : 1960 Exam Date/Time: 06/20/2023 01:38 Procedure: MR BRAIN W AND WO CONTRAST Ordering Provider: MENJIVAR AMBER Reason For Exam: Stroke, follow up CLINICAL INFORMATION: Altered mental status. Left-sided weakness. Strokelike symptoms. FLAIR, T2, T1, and diffusion weighted axial images, T1 coronal images, and T1 sagittal images of the brain are obtained prior to IV contrast. Subsequently, after the administration of 9 mL IV Gadavist, T1 axial, coronal, and sagittal images are repeated. The examination is compared to a prior CT dated 06/19/2023. There are no comparison MR studies. FINDINGS: The diffusion-weighted images demonstrate a tiny focus of bright signal in the motor cortex of the posterior right frontal lobe near the vertex (image #43). This is subtly low in signal on the accompanying ADC map suggesting an acute focus. There is no evidence of hemorrhagic transformation. No other focal infarcts are identified. The ventricles are within normal limits in respect to their size and configuration. There is no evidence of mass or mass-effect. There are no abnormal intra or extra-axial fluid collections. After IV contrast, there are no regions of abnormal enhancement. Mucoperiosteal thickening and inflammation are noted in the bilateral maxillary, ethmoid, and sphenoid sinuses. The mastoid air cells are clear. [facility] René Atkinson MD - 06/20/2023 Patient Name: RONEY SMALL : 1960 [facility]#: [id number] Exam Date/Time: 06/20/2023 01:38 Procedure: MR BRAIN W AND WO CONTRAST Ordering Provider: MENJIVAR AMBER Reason For Exam: Stroke, follow up CLINICAL INFORMATION: Altered mental status. Left-sided weakness. Strokelike symptoms. FLAIR, T2, T1, and diffusion weighted axial images, T1 coronal images, and T1 sagittal images of the brain are obtained prior to IV contrast. Subsequently, after the administration of 9 mL IV Gadavist, T1 axial, coronal, and sagittal images are repeated. The examination is compared to a prior CT dated 06/19/2023. There are no comparison MR studies. FINDINGS: The diffusion-weighted images demonstrate a tiny focus of bright signal in the motor cortex of the posterior right frontal lobe near the vertex (image #43). This is subtly low in signal on the accompanying ADC map suggesting an acute focus. There is no evidence of hemorrhagic transformation. No other focal infarcts are identified. The ventricles are within normal limits in respect to their size and configuration. There is no evidence of mass or mass-effect. There are no abnormal intra or extra-axial fluid collections. After IV contrast, there are no regions of abnormal enhancement. Mucoperiosteal thickening and inflammation are noted in the bilateral maxillary, ethmoid, and sphenoid sinuses. The mastoid air cells are clear. IMPRESSION: 1. Subtle, very tiny focus of probable acute infarct in the motor cortex of the posterior right frontal lobe, near the vertex. 2. No evidence of hemorrhagic transformation. 3. No abnormal enhancement. 4. Pansinusitis. Report Dictated on Electronically Signed By: René Atkinson MD Electronically Signed Date/Time: 06/20/2023 8:37 AM EST [facility] Radiology Study observation (narrative) [facility] alth MR Brain WO and W contrast I VOrdered By: René Atkinson on 06-20-2023 [facility] Work Phone: No Panel Informationon 06-20 Interpretation and review of laboratory results Normal [facility] PHOSPHORUSon 06-20-2023 Phosphate [Mass/Vol] 3.4 mg/dL Normal 2.5-4.5 [facility] Comment on above: Performed By: #### L AB103, [id number], LAB17 ####Infant Lead Teacher: SAVANNAH DEL CID ([id number])[address] Phosphate [Moles/Vol]on 06-01 Phosphate [Mass/Vol] 3.4 mg/dL 2.5 - 4 .5 mg/dL [facility] US Heart Transesophagealon 0 06-20-2023 No thrombus or other source of embolic event is identified. Interatrial Septum: No interatrial shunt visualized on color Doppler. Grade 0 Absence of bubbles. Lipomatous hypertrophy present. Aorta: There is mild atherosclerosis present in the ascending aorta. There is mild atherosclerosis present in the aortic arch. There is mild atherosclerosis in the descending aorta. No large mobile atheromas noted. Left Ventricle: Left ventricle size is normal. Mildly increased wall thickness. Normal left ventricular systolic function. Normal wall motion. Right Ventricle: Right ventricle is mildly dilated. Normal systolic function. Left Atrium: No left atrial appendage thrombus noted. No significant valvular abnormalities. Left Ventricle Left ventricle size is normal. Mildly increased wall thickness. Normal left ventricular systolic function. Normal wall motion. Right Ventricle Right ventricle is mildly dilated. Normal systolic function. Left Atrium Left atrium size is normal. No left atrial appendage thrombus noted. Normal flow patterns in the pulmonary veins. Right Atrium Right atrium size is normal. There is a prominent Eustachian valve. IVC/SVC IVC diameter is normal and decreases greater than 50% during inspiration; therefore the estimated right atrial pressure is normal (~3 mmHg). Mitral Valve Valve structure is normal. No regurgitation. No stenosis noted. Tricuspid Valve Valve structure is normal. No regurgitation. Aortic Valve Trileaflet. No cusp thickening. No cusp calcification. No regurgitation. No stenosis. Pulmonic Valve Valve structure is normal. Trace regurgitation. Ascending Aorta There is mild atherosclerosis present in the ascending aorta. There is mild atherosclerosis present in the aortic arch. There is mild atherosclerosis in the descending aorta. No large mobile atheromas noted. Pericardium No pericardial effusion. Septum No interatrial shunt visualized on color Doppler. Grade 0 Absence of bubbles. Lipomatous hypertrophy present. Pulmonary Artery Normal pulmonary arteries. Study Details Image quality: excellent. Images have been saved and databased. Heart rate: 75 bpm. Blood pressure: 158/90 mmHg. The underlying ECG rhythm was sinus rhythm. TANA probe number: 4. TANA probe was inserted by the culinary assistant with minimal difficulty. No topical anesthesic. No complications. TANA probe was removed. No contrast was given. See anesthesia notes for medications given. Echo Additional Conclusions No significant valvular abnormalities.No thrombus or other source of embolic event is identified. CV CPACS HEMO [facility] CALCIUM, IONIZEDon 4 CALCIUM IONIZED 4.50 mg/dL Normal 4.30-5.20 [facility] Comment on above: Performed By: #### L [id number] ####Infant Lead Teacher: SAVANNAH DEL CID ([id number])[facility] ([facility] [place] [address] PH, IONIZED CALCIUM 7.42 Normal 7.31-7.46 [facility] Comment on above: Performed By: #### L AB54 ####Infant Lead Teacher: SAVANNAH DEL CID ([id number])[facility] ([facility])[address] [place] [address] [facility] 06-19-2023 [facility] Patients PCP office is located in [facility]. They do have Neurology in same building however it is scheduling into January for new patients. Moses try to find closer follow up. Normal [facility] Care Managment Initial Assessment Date: 06/19/2023 Patient Name: Roney Small : 1960 Patient Information Source of Information: Patient, Patient Content Manager Name/Contact Information: Emilee Doll Significant Other [phone] Cognition/Language: WFL - Within Functional Limits Permission given to speak with patient security representative/careg iver as indicated: Yes Confirmation of Payer with patient/family: Yes Payer Name: Rosibel Sherwood [employer] [place]: No Confirmation of Primary Care Physician: Confirmed PCP Name: Tamy Hernandez Seen in last 2 years?: Yes Primary Caregiver: Self If assistance needed, confirmed caregiver ready, willing and able to care for patient at discharge: Confirmed with: Living Arrangements Current Residence: House Number of Floors 1 Number of Entry Steps: 2 Bed/Bath Levels: Both first floor Facility: Facility Name: Plan to Return: Lives with: Spouse/significant other Support Systems: Spouse/significant other, Family members, Friends/neighbors Activities of Daily Living Ambulation: Independent Bathing/Dressing: Independent Elimination/Continen ce/Toileting: Independent Feeding: Independent Who Assists with Activities of Daily Living: Instrumental Activities of Daily Living Prescription Coverage: Yes Pharmacy Used: [facility] [address] [place] [address] Medication Management: Independent Transportation/Shopp ing: Independent Transportation Mode: Car Needs Assistance with Transportation at Discharge: No Meal Preparation: Independent Laundry/Cleaning: Independent Finances/Bill Paying: Independent Communication: Independent Types of Care Services/Equipment Utilized Care Services: Dialysis Type: NA Durable Medical Equipment: Patient's Goal/Discharge Plan Patient expects to be discharged to: Home Discharge Planning Actions: Continue to follow Patient's Choice Rights and [employer] and Collaborative Relationships Disclosed as Indicated for Post-Acute Care: Interdisciplinary Team Engagement: PT/OT Social Work Referral for: Additional Information: Chart reviewed. Patient admitted to [facility] ICU for acute ischemic stroke s/p TNK 06/18/2023. Consults to IP CONSULT TO CASE MANAGEMENT IP CONSULT TO NEUROLOGY Initial Assessment: PPE worn. Spoke with patient and girlfriend at bedside. Introduced myself and role as TCC. IA complete. Patient personal information confirmed. Patient from home with s/o, independent, employed, and drives. Patient has insurance, PCP and prescription coverage. Discussed discharge planning. Patient works-- would be barrier to C. Patient would prefer to not go to [facility] unless absolutely necessary. Discharge Planning Barrier: PT/OT pending. Discharge Plan: Home. Awaiting PT/OT eval, clinical stability and medical clearance. Will continue to follow. Narda Merlos RN Normal [facility] CBC W Auto Differential pane l (Bld)Ordered By: Rob Jc on 06-19-2023 Basophils (Bld) [#/Vol] 0.1 10*3/uL 0.0 - 0.2 10*3/uL [facility] Basophils/100 WBC (Bld) 1.0 % 0.0 - 2.0 % [facility] Eosinophils (Bld) [#/Vol] 0.5 10*3/uL 0.0 - 0.5 10*3/uL [facility] Eosinophils/100 WBC (Bld) 6.7 % High 1.0 - 6.0 % [facility] Erythrocyte distribution width (RBC) [Ratio] 12.7 % 11.5 - 14.5 % [facility] Hematocrit (Bld) [Volume fraction] 44.4 % 40.0 - 52.0 % [facility] Hemoglobin (Bld) [Mass/Vol] 14.9 g/dL 13.0 - 18.0 g/dL [facility] Interpretation and review of laboratory results Abnormal [facility] Lymphocytes (Bld) [#/Vol] 2.4 10*3/uL 1.0 - 4.3 10*3/uL [facility] Lymphocytes/100 WBC (Bld) 33.7 % 20.0 - 40.0 % [facility] MCH (RBC) [Entitic mass] 31.2 pg 26. 0 - 34.0 pg [facility] MCHC (RBC) [Mass/Vol] 33.6 % 32.0 - 36.0 % [facility] MCV (RBC) [Entitic vol] 92.9 fL 80.0 - 98.0 fL [facility] Monocytes (Bld) [#/Vol] 0.7 10*3/uL 0.0 - 0.8 10*3/uL [facility] Monocytes/100 WBC (Bld) 10.6 % High 2.0 - 10.0 % [facility] Neutrophils (Bld) [#/Vol] 3.4 10*3/uL 1.8 - 7.0 10*3/uL [facility] Neutrophils/100 WBC (Bld) 48.0 % 40.0 - 80.0 % [facility] Nucleated RBC/100 WBC (Bld) [Ratio] 0.0 % [facility] Platelet mean volume (Bld) [Entitic vol] 7.6 fL 7.4 - 12.4 fL [facility] Platelets (Bld) [#/Vol] 211 10*3/uL 140 - 440 10*3/uL [facility] RBC (Bld) [#/Vol] 4.78 10*6/uL 4.40 - 5.9 0 10*6/uL [facility] WBC (Bld) [#/Vol] 7.0 10*3/uL 3.6 - 10.7 10*3/uL [facility] CBC WITH AUTO DIFFERENTIALon 06-19-2023 Basophils (Bld) [#/Vol] 0.1 10*3/uL Normal 0.0-0.2 [facility] Comment on above: Performed By: #### L [id number] ####Infant Lead Teacher: SAVANNAH DEL CID ([id number])[address] Basophils/100 WBC (Bld) 1.0 % Normal 0.0-2.0 [facility] Comment on above: Performed By: #### L [id number] ####Infant Lead Teacher: SAVANNAH DEL CID ([id number])[facility] ([facility])[address] [place] [address] Eosinophils (Bld) [#/Vol] 0.5 10*3/uL Normal 0.0-0.5 [facility] Comment on above: Performed By: #### L [id number] ####Infant Lead Teacher: SAVANNAH DEL CID ([id number])[address] Eosinophils/100 WBC (Bld) 6.7 % High 1.0-6.0 [facility] Comment on above: Performed By: #### L [id number] ####Infant Lead Teacher: SAVANNAH DEL CID ([id number])[facility])[address] [place] [address] Erythrocyte distribution width (RBC) [Ratio] 12.7 % Normal 11.5-14.5 [facility] Comment on above: Performed By: #### L [id number] ####Infant Lead Teacher: SAVANNAH DEL CID ([id number])[address] ERYTHROCYTE MEAN CORPUSCULAR HEMOGLOBIN CONCENTRATION (G/DL) BY AUTOMATED 33.6 % Normal 32.0-36.0 [facility] Comment on above: Performed By: #### L [id number] ####Infant Lead Teacher: SAVANNAH DEL CID ([id number])[address] Hematocrit (Bld) [Volume fraction] 44.4 % Normal 40.0-52.0 [facility] Comment on above: Performed By: #### L [id number] ####Infant Lead Teacher: SAVANNAH DEL CID ([id number])[facility])[address] [place] [address] Hemoglobin (Bld) [Mass/Vol] 14.9 g/dL Normal 13.0-18.0 [facility] Comment on above: Performed By: #### L [id number] ####Infant Lead Teacher: SAVANNAH DEL CID ([id number])[facility])[address] [place] [address] Lymphocytes (Bld) [#/Vol] 2.4 10*3/uL Normal 1.0-4.3 [facility] Comment on above: Performed By: #### L [id number] ####Infant Lead Teacher: SAVANNAH DEL CID ([id number])[facility])[address] [place] [address] Lymphocytes/100 WBC (Bld) 33.7 % Normal 20.0-40.0 [facility] Comment on above: Performed By: #### L [id number] ####Infant Lead Teacher: SAVANNAH DEL CID ([id number])[facility])[address] [place] [address] MCH (RBC) [Entitic mass] 31.2 pg Normal 26.0-34.0 [facility] Comment on above: Performed By: #### L [id number] ####Infant Lead Teacher: SAVANNAH DEL CID ([id number])[facility])[address] [place] [address] MCV (RBC) [Entitic vol] 92.9 fL Normal 80.0-98.0 [facility] Comment on above: Performed By: #### L [id number] ####Infant Lead Teacher: SAVANNAH DEL CID ([id number])[facility] ([facility])[address] [place] [address] Monocytes (Bld) [#/Vol] 0.7 10*3/uL Normal 0.0-0.8 [facility] Comment on above: Performed By: #### L [id number] ####Infant Lead Teacher: SAVANNAH DEL CID ([id number])[facility])[address] [place] [address] Monocytes/100 WBC (Bld) 10.6 % High 2.0-10.0 [facility] [facility] Comment on above: Performed By: #### L [id number] ####Infant Lead Teacher: SAVANNAH DEL CID ([id number])[facility])[address] [place] [address] Neutrophils (Bld) [#/Vol] 3.4 10*3/uL Normal 1.8-7.0 [facility] Comment on above: Performed By: #### L [id number] ####Infant Lead Teacher: SAVANNAH [id number])[facility] ([facility])[address] [place] [address] Neutrophils/100 WBC (Bld) 48.0 % Normal 40.0-80.0 [facility] Comment on above: Performed By: #### L [id number] ####Infant Lead Teacher: SAVANNAH DEL CID ([id number])[facility] ([facility])[address] [place] [address] NRBC (PER 100 WBCS) BY AUTOMATED COUNT 0.0 /100 WBCs Normal 0.0-2.0 [facility] Comment on above: Performed By: #### L [id number] ####Infant Lead Teacher: SAVANNAH DEL CID ([id number])[facility] ([facility])[address] [place] [address] Platelet mean volume (Bld) [Entitic vol] 7.6 fL Normal 7.4-12.4 [facility] Comment on above: Performed By: #### L [id number] ####Infant Lead Teacher: SAVANNAH DEL CID ([id number])[facility] ([facility])[address] [place] [address] Platelets (Bld) [#/Vol] 211 10*3/uL Normal 140-440 [facility] Comment on above: Performed By: #### L [id number] ####Infant Lead Teacher: SAVANNAH DEL CID ([id number])[facility])[address] [place] [address] RBC (Bld) [#/Vol] 4.78 10*6/uL Normal 4.40-5.90 [facility] Comment on above: Performed By: #### L [id number] ####Infant Lead Teacher: SAVANNAH DEL CID ([id number])[facility])[address] [place] [address] WBC (Bld) [#/Vol] 7.0 10*3/uL Normal 3.6-10.7 [facility] Comment on above: Performed By: #### L [id number] ####Infant Lead Teacher: SAVANNAH DEL CID ([id number])[facility] ([facility])[address] [place] [address] COMPREHENSIVE METABOLIC PANE Selvin 06-19-2023 Albumin [Mass/Vol] 3.9 g/dL Normal 3.5-5.0 [facility] Comment on above: Performed By: #### L [id number], [id number], DCT339, LAB18, LAB17 ####Infant Lead Teacher: SAVANNAH DEL CID ([id number])[facility] ([facility])[address] [place] [address] ALP [Catalytic activity/Vol] 70 U/L Normal 38-126 [facility] Comment on above: Performed By: #### L [id number], ISY587, TFW901, LAB18, LAB17 ####Infant Lead Teacher: SAVANNAH DEL CID ([id number])[facility] ([facility])[address] [place] [address] ALT [Catalytic activity/Vol] 20 U/L Normal 0-49 [facility] Comment on above: Performed By: #### L [id number], RTP468, BIH263, LAB18, LAB17 ####Infant Lead Teacher: SAVANNAH DEL CID ([id number])[facility] ([facility])[address] [place] [address] Anion gap [Moles/Vol] 7 mmol/L Normal 3-13 [facility] Comment on above: Performed By: #### L [id number], CMR614, EFU451, LAB18, LAB17 ####Infant Lead Teacher: SAVANNAH DEL CID ([id number])[facility] ([facility])[address] [place] [address] AST [Catalytic activity/Vol] 29 U/L Normal 15-46 [facility] Comment on above: Performed By: #### L [id number], QLN502, VGU870, LAB18, LAB17 ####Infant Lead Teacher: SAVANNAH DEL CID ([id number])[facility])[address] [place] [address] Bilirubin [Mass/Vol] 0.9 mg/dL Normal 0.2-1.3 [facility] Comment on above: Performed By: #### L [id number], MYZ686, DSG323, LAB18, LAB17 ####Infant Lead Teacher: SAVANNAH DEL CID ([id number])[facility])[address] [place] [address] Calcium [Mass/Vol] 8.9 mg/dL Normal 8.4-10.4 [facility] Comment on above: Performed By: #### L AB747, YRU243, NJB876, LAB18, LAB17 ####Infant Lead Teacher: SAVANNAH DEL CID ([id number])[facility] ([facility])[address] [place] [address] Chloride [Moles/Vol] 105 mmol/L Normal 98-107 [facility] Comment on above: Performed By: #### L [id number], WNE772, TRQ288, LAB18, LAB17 ####Infant Lead Teacher: SAVANNAH DEL CID ([id number])[facility])[address] [place] [address] CO2 [Moles/Vol] 21 mmol/L Low 22-30 [facility] Comment on above: Performed By: #### L [id number], IXU113, TDA274, LAB18, LAB17 ####Infant Lead Teacher: SAVANNAH DEL CID ([id number])[facility])[address] [place] [address] Creatinine [Mass/Vol] 0.69 mg/dL Normal 0.66-1.25 [facility] Comment on above: Performed By: #### L AB747, XOX467, CFU041, LAB18, LAB17 ####Infant Lead Teacher: SAVANNAH DEL CID ([id number])[facility])[address] [place] [address] GLOMERULAR FILTRATION RATE ML/MIN/1.73 SQ M.PREDICTED >90.0 Normal >60.0 [facility] Comment on above: Result Comment: Calc ulation based on the Chronic Kidney Disease Epidemiology Collaboration (CKD-EPI) equation refit without adjustment for race ORDER COMMENTS: Slightly Hemolyzed. Interpret K+, ALKP, AST with caution. Performed By: #### L AB747, XNR114, LOZ250, LAB18, LAB17 ####Infant Lead Teacher: SAVANNAH DEL CID ([id number])[facility] ([facility])[address] [place] [address] Glucose [Mass/Vol] 102 mg/dL High 70-100 [facility] Comment on above: Performed By: #### L AB747, LZR591, LEM473, LAB18, LAB17 ####Infant Lead Teacher: SAVANNAH DEL CID ([id number])[facility] ([facility])[address] [place] [address] Potassium [Moles/Vol] 4.2 mmol/L Normal 3.5-5.1 [facility] Comment on above: Performed By: #### L AB747, YMH047, SAU690, LAB18, LAB17 ####Infant Lead Teacher: SAVANNAH DEL CID ([id number])[facility] ([facility])[address] [place] [address] Protein [Mass/Vol] 7.2 g/dL Normal 6.3-8.2 [facility] Comment on above: Performed By: #### L AB747, WDX463, UYX274, LAB18, LAB17 ####Infant Lead Teacher: SAVANNAH DEL CID ([id number])[facility] ([facility])[address] [place] [address] Sodium [Moles/Vol] 133 mmol/L Low 135-145 [facility] Comment on above: Performed By: #### L AB747, UMJ239, ODP129, LAB18, LAB17 ####Infant Lead Teacher: SAVANNAH DEL CID ([id number])[facility] ([facility])[address] [place] [address] [place] Urea nitrogen [Mass/Vol] 16 mg/dL Normal 9-20 [facility] Comment on above: Performed By: #### L AB747, NVE253, JOR201, LAB18, LAB17 ####Infant Lead Teacher: SAVANNAH DEL CID ([id number])[facility])[address] [place] [address] CT HEAD WO IV CONTRASTon CT HEAD WO IV CONTRAST Patient Name: RONEY LYON DOB: 1960 Exam Date/Time: 06/19/2023 12:03 Procedure: CT HEAD WO IV CONTRAST Ordering Provider: MENJIVAR AMBER Reason For Exam: Stroke, follow up CT HEAD: CLINICAL INDICATION: Stroke TECHNIQUE: Transaxial CT sequence performed through the head with 3 mm reconstruction. Sagittal and Coronal reconstruction images included. Dose reduction was employed with automated exposure control. COMPARISON: None FINDINGS: Ventricles and Extra-axial spaces: Normal in size and morphology for the patient's age. No abnormal extracerebral collection identified. Cerebral and cerebellar parenchyma: No regions of abnormal increased or decreased attenuation, hemorrhage, mass lesion or evidence of acute infarct. Brainstem: Normal Visualized Paranasal sinuses: Normal. Mastoid air cells: Normal. Visualized Orbits: Normal Calvarium and skull base: Normal Other: Dense calcification is noted within the distal vertebral and internal carotid arteries IMPRESSION: 1. No acute intracranial hemorrhage or definite acute cortical infarct. Note that if there is persistent concern for an acute infarct, MRI is a more sensitive means of evaluation. Report Dictated on Electronically Signed By: Brendan Valencia MD Electronically Signed Date/Time: 06/19/2023 12:39 PM [facility] CT Head WO contraston 2023 1. No acute intracranial hemorrhage or definite acute cortical infarct. Note that if there is persistent concern for an acute infarct, MRI is a more sensitive means of evaluation. Report Dictated on Electronically Signed By: Brendan Valencia MD Electronically Signed Date/Time: 06/19/2023 12:39 PM [facility] Patient Name: RONEY SMALL : 1960 Exam Date/Time: 06/19/2023 12:03 Procedure: CT HEAD WO IV CONTRAST Ordering Provider: MENJIVAR AMBER Reason For Exam: Stroke, follow up CT HEAD: CLINICAL INDICATION: Stroke TECHNIQUE: Transaxial CT sequence performed through the head with 3 mm reconstruction. Sagittal and Coronal reconstruction images included. Dose reduction was employed with automated exposure control. COMPARISON: None FINDINGS: Ventricles and Extra-axial spaces: Normal in size and morphology for the patient's age. No abnormal extracerebral collection identified. Cerebral and cerebellar parenchyma: No regions of abnormal increased or decreased attenuation, hemorrhage, mass lesion or evidence of acute infarct. Brainstem: Normal Visualized Paranasal sinuses: Normal. Mastoid air cells: Normal. Visualized Orbits: Normal Calvarium and skull base: Normal Other: Dense calcification is noted within the distal vertebral and internal carotid arteries [facility] Brendan Valencia MD - 06/19/2023 Patient Name: RONEY SMALL : 1960 Exam Date/Time: 06/19/2023 12:03 Procedure: CT HEAD WO IV CONTRAST Ordering Provider: MENJIVAR AMBER Reason For Exam: Stroke, follow up CT HEAD: CLINICAL INDICATION: Stroke TECHNIQUE: Transaxial CT sequence performed through the head with 3 mm reconstruction. Sagittal and Coronal reconstruction images included. Dose reduction was employed with automated exposure control. COMPARISON: None FINDINGS: Ventricles and Extra-axial spaces: Normal in size and morphology for the patient's age. No abnormal extracerebral collection identified. Cerebral and cerebellar parenchyma: No regions of abnormal increased or decreased attenuation, hemorrhage, mass lesion or evidence of acute infarct. Brainstem: Normal Visualized Paranasal sinuses: Normal. Mastoid air cells: Normal. Visualized Orbits: Normal Calvarium and skull base: Normal Other: Dense calcification is noted within the distal vertebral and internal carotid arteries IMPRESSION: 1. No acute intracranial hemorrhage or definite acute cortical infarct. Note that if there is persistent concern for an acute infarct, MRI is a more sensitive means of evaluation. Report Dictated on Electronically Signed By: Brendan Valencia MD Electronically Signed Date/Time: 06/19/2023 12:39 PM EST [facility] Radiology Study observation (narrative) [facility] CT Head WO contrastOrdered B y: Brendan Valencia on 06-19-2023 [facility] Work Phone: Calcium.ionized [Moles/Vol]o n 06-19-2023 Calcium.ionized (Bld) [Moles/Vol] 4.50 mg/dL 4.30 - 5.20 mg/dL [facility] Interpretation and review of laboratory results Normal [facility] PH, IONIZED CALCIUM 7.42 7.31 - 7.46 [facility] Comprehensive metabolic 1998 panelon 06-19-2023 Albumin [Mass/Vol] 3.9 g/dL 3.5 - 5.0 g/dL [facility] ALP [Catalytic activity/Vol] 70 U/L 38 - 126 U/L [facility] ALT [Catalytic activity/Vol] 20 U/L 0 - 49 U/L [facility] Anion gap [Moles/Vol] 7 mmol/L 3 - 13 mmol/L [facility] AST [Catalytic activity/Vol] 29 U/L 15 - 46 U/L [facility] Bilirubin [Mass/Vol] 0.9 mg/dL 0.2 - 1 .3 mg/dL [facility] Calcium [Mass/Vol] 8.9 mg/dL 8.4 - 10. 4 mg/dL [facility] Chloride [Moles/Vol] 105 mmol/L 98 - 10 7 mmol/L [facility] CO2 [Moles/Vol] 21 mmol/L Low 22 - 30 mmol/L [facility] Creatinine [Mass/Vol] 0.69 mg/dL 0.66 - 1.25 mg/dL [facility] GFR/1.73 sq M.predicted MDRD (S/P/Bld) [Vol rate/Area] - PINF [facility] Comment on above: Calculation based on the Chronic Kidney Disease Epidemiology Collaboration (CKD-EPI) equation refit without adjustment for race Glucose [Mass/Vol] 102 mg/dL High 70 - 100 mg/dL [facility] Potassium [Moles/Vol] 4.2 mmol/L 3.5 - 5.1 mmol/L [facility] Protein [Mass/Vol] 7.2 g/dL 6.3 - 8.2 g/dL [facility] Sodium [Moles/Vol] 133 mmol/L Low 135 - 145 mmol/L [facility] Urea nitrogen [Mass/Vol] 16 mg/dL 9 - 20 mg/d L [facility] Slightly Hemolyzed. Interpret K+, ALKP, AST with caution. [facility] ECG 12-LEADon 06-19-2023 ECG 12-LEAD IMPRESSION: Sinus rhythm Probable left atrial enlargement RBBB and LAFB Electronically Signed On 06-19-2023 17:11:36 EST by Dejah Lopez Normal [facility] HEMOGLOBIN A1Con 06-19-2023 Glucose [Mass/Vol] 111 mg/dL Normal [facility] Comment on above: Performed By: #### L AB90 #### Infant Lead Teacher: SAVANNAH DEL CID ([id number]) [facility] ([facility]) [address] [place] [address] HbA1c (Bld) [Mass fraction] 5.5 % Normal <5.7 [facility] Comment on above: Result Comment: Norm al less than 5.7% Prediabetes 5.7% to 6.4% Diabetes 6.5% or higher --HgbA1C levels may not be accurate in patients who have renal disease, received recent blood transfusions, are anemic, or who have dyshemoglobinemia. Performed By: #### L AB90 #### Infant Lead Teacher: SAVANNAH DEL CID ([id number]) [facility] ([facility]) [address] [place] [address] LIPID PANELon 06-19-2023 Cholesterol [Mass/Vol] 183 mg/dL Normal <200 [facility] Comment on above: Performed By: #### L AB747, NML820, ILG675, LAB18, LAB17 ####Infant Lead Teacher: SAVANNAH DEL CID ([id number])[facility] ([facility])[address] [place] [address] Cholesterol in HDL [Mass/Vol] 43 mg/dL Normal 40-60 [facility] Comment on above: Performed By: #### L AB747, OFJ518, POO180, LAB18, LAB17 ####Infant Lead Teacher: SAVANNAH DEL CID ([id number])[facility])[address] [place] [address] Cholesterol.total/Choles terol in HDL [Mass ratio] 4 {ratio} Normal [facility] Comment on above: Result Comment: Ref Range: < 3 Low Risk for CHD 3-6 Mod Risk for CHD > 6 High Risk for CHD Performed By: #### L AB747, KNK386, ADS675, LAB18, LAB17 ####Infant Lead Teacher: SAVANNAH DEL CID ([id number])[facility] ([facility])[address] [place] [address] LOW DENSITY LIPOPROTEIN 115 mg/dL High 0-<100 [facility] Comment on above: Performed By: #### L AB747, TXK816, AKK531, LAB18, LAB17 ####Infant Lead Teacher: SAVANNAH DEL CID ([id number])[facility])[address] [place] [address] Triglyceride [Mass/Vol] 125 mg/dL Normal <150 [facility] Comment on above: Performed By: #### L AB747, XKN601, HMH239, LAB18, LAB17 ####Infant Lead Teacher: SAVANNAH DEL CID ([id number])[facility] [place] [address] Laboratory - Chemistry and C hemistry - challengeon 06-19-2023 Magnesium [Mass/Vol] 2.0 mg/dL 1.6 - 2 .3 mg/dL [facility] Troponin I.cardiac [Mass/Vol] ng/mL NINF - 0.034 ng/mL [facility] Average glucose Estimated from glycated hemoglobin (Bld) [Mass/Vol] 111 mg/dL [facility] Laboratory - Hematology and Cell countson 06-19-2023 HbA1c (Bld) [Mass fraction] 5.5 % [facility] - 5.7 % [facility] Comment on above: Normal less than 5.7 % Prediabetes 5.7% to 6.4% Diabetes 6.5% or higher --HgbA1C levels may not be accurate in patients who have renal disease, received recent blood transfusions, are anemic, or who have dyshemoglobinemia. Lipid 1996 panelon Cholesterol [Mass/Vol] 183 mg/dL NINF - 200 mg/dL [facility] Cholesterol in HDL [Mass/Vol] 43 mg/dL 40 - 60 mg/dL [facility] Cholesterol in LDL [Mass/Vol] 115 mg/dL High 0 - <100 [facility] Cholesterol.total/Choles terol in HDL [Mass ratio] 4 {ratio} [facility] Comment on above: Ref Range: < 3 Low Risk for CHD 3-6 Mod Risk for CHD > 6 High Risk for CHD Triglyceride [Mass/Vol] 125 mg/dL NINF - 150 mg/dL [facility] MAGNESIUMon 06-19-2023 Magnesium [Mass/Vol] 2.0 mg/dL Normal 1.6-2.3 [facility] Comment on above: Result Comment: KEERTHI Huerta COMMENTS: Slightly Hemolyzed. Interpret Magnesium with caution. Performed By: #### L AB747, VEP843, VPW192, LAB18, LAB17 ####Infant Lead Teacher: SAVANNAH DEL CID ([id number])[facility] ([facility])[address] [place] [address] Magnesium [Mass/Vol]on 06-19 Slightly Hemolyzed. Interpret Magnesium with caution. [facility] No Panel InformationOrdered By: Dejah Lopez on 06-19-2023 P Sher[place] 69 degrees [employer] Work Phone: DC Interval 166 ms [facility] Work Phone: QRS [place] -81 degrees [facility] Work Phone: QRSD Interval 141 ms [facility] Work Phone: QT Interval 403 ms [employer] Work Phone: QTC Interval 467 ms [facility] Work Phone: T Wave [place] 21 degrees [employer] Work Phone: [employer] Work Phone: No Panel Informationon 06-19 Sinus rhythm Probable left atrial enlargement RBBB and LAFB Electronically Signed On 06-19-2023 17:11:36 EST by Dejah Lopez Dejah Cohn MD - 06/19/2023 IMPRESSION: Sinus rhythm Probable left atrial enlargement RBBB and LAFB Electronically Signed On 06-19-2023 17:11:36 EST by Dejah Lopez [facility] Interpretation and review of laboratory results Abnormal [facility] Interpretation and review of laboratory results Normal [facility] PHOSPHORUSon 06-19-2023 Phosphate [Mass/Vol] 4.1 mg/dL Normal 2.5-4.5 [facility] Comment on above: Result Comment: ORDE R COMMENTS: Slightly Hemolyzed. Interpret Phosphorus with caution. Performed By: #### L AB747, HXP605, GHX868, LAB18, LAB17 ####Infant Lead Teacher: SAVANNAH DEL CID ([id number])[facility] ([facility])[address] [place] [address] Phosphate [Moles/Vol]on 06-01 Phosphate [Mass/Vol] 4.1 mg/dL 2.5 - 4 .5 mg/dL [facility] Slightly Hemolyzed. Interpret Phosphorus with caution. [facility] Progress Noteon 06-19-2023 Progress Note ICU Transfer Checklist Transfer Med Reconciliation (resume home meds if able, convert to PO if able) Complete Antibiotics (name, indication, duration, convert to PO if able) Yes,--for sinusitis on augmentin Steroid (indication, duration, convert to PO if able) None Anticipated Amenia Medications (ICU initiated) or Dose Changes and Indication No Permanently Discontinued Home Medications and Reason for medication contraindication No Lipscomb Catheter (please remove if able. Note: place DC order) No Central Line (please remove if able. Note: place DC order) No Transfer Discussed with: Dr. Villagomez If additional questions for ICU team within 24 hours of ICU transfer, page [phone] for clarifications. Normal [facility] Progress Note Speech-Language Pathology SPEECH LANGUAGE PATHOLOGY [facility] Dysphagia Treatment Note Patient Name: Roney Small Evaluation Date: 06/19/2023 Date of : 1960 Admission Date: 06/18/2023 1:33 PM Age: 63 y.o. Room/Bed: T2-225/T2-225 A Subjective Patient alert and cooperative. Seen upright in bed. Answers all basic questions with strong vocal quality. Follows all basic commands. No visitors at bedside. Spoke with FRANCIA Nina who cleared pt for treatment. Current Diet: Dietary Orders (From admission, onward) Start Ordered 06/18/23 1518 Adult diet Regular Diet effective now Question: Diet type Answer: Regular 06/18/23 1517 Aspiration Precautions: - Upright positioning for all PO intake - Small bites/sips Oxygen: Oxygen Therapy: None (Room air) Pain: RN managing pain. PPE Worn: surgical mask, gloves Objective & Assessment Dysphagia Treatment # of Activities: 1 Dysphagia Activity 1: assess dietary tolerace Patient consumes thin liquids via cup edge and straw with subjective timely swallow onset and no change in vocal quality noted post swallow. Patient consumes dry cracker with good mastication, good bolus management, and subjectively timely swallow onset. No oral residue is noted post swallow. Patient continues to have intermittent dry cough, with and without PO intake. Patient states his throat feels a little dry and is cough is not related to PO intake. Plan & Recommendations Plan: Please re-consult if indicated. Patient has achieved all acute care BUNDLE TIER goals. Speech therapy to sign off at this time. D/C Recommendations: No follow up therapy recommended post discharge Education Education Given: swallowing strategies, diet recommendations Given To: patient and RN Response: verbalizes understanding Goals Patient Stated Goal: to eat breakfast. Encounter Problems Encounter Problems (Active) Swallowing Patient will tolerate recommended food and liquid consistencies without clinical signs and symptoms of aspirations (Adequate for Discharge) Start: 06/18/23 Expected End: 06/25/23 Therapy Time BUNDLE TIER Individual Minutes Time In: 0855 Time Out: 0904 Minutes: 9 Arcelia Day Normal [facility] Progress Note PHYSICAL THERAPY [facility] Name/MRN: Roney Small ([id number]) Date: 06/19/2023 Received orders for PT eval and treat. Pt currently on bedrest. Will hold until activity level is increased. Miriam Le Normal [facility] TROPONIN Ion 06-19-2023 Troponin I.cardiac [Mass/Vol] ng/mL Normal <0.034 [facility] Comment on above: Result Comment: KEERTHI Huerta COMMENTS: Slightly Hemolyzed. Interpret Troponin I with caution. Patients with high levels of Biotin oral intake (ie >5 mg/day) may have falsely decreased Troponin levels. Performed By: #### L AB747, LNR922, TMY901, LAB18, LAB17 ####Infant Lead Teacher: SAVANNAH DEL CID ([id number])[facility] ([facility] Troponin I.cardiac [Mass/Vol ]on 06-19-2023 Slightly Hemolyzed. Interpret Troponin I with caution. Patients with high levels of Biotin oral intake (ie >5 mg/day) may have falsely decreased Troponin levels. [facility] Heart TransthoracicOrdere d By: Vicente Ovalle on 06-19-2023 Aortic Sinus Valsalva 3.5 cm [facility] Work Phone: Ascending Aorta 3.5 cm [facility] Work Phone: AV Area by Peak Velocity 3.2 cm2 [facility] Work Phone: AV Area by VTI 3.2 cm2 [facility] Work Phone: AV Mean Gradient 4 mmHg [facility] Work Phone: AV Mean Velocity 0.9 m/s [facility] Work Phone: AV Peak Gradient 7 mmHg [facility] Work Phone: AV Peak Velocity 1.3 m/s [facility] Work Phone: AV Velocity Ratio 0.77 [facility] Work Phone: AV VTI 25.4 cm [facility] Work Phone: E/E' Lateral 7.36 [facility] Work Phone: E/E' Ratio (Averaged) 9.47 [facility] Work Phone: E/E' Septal 11.57 [facility] Work Phone: EF BP 71 % 55 - 100 % [facility] Work Phone: Est. RA Pressure 3 mmHg [facility] Work Phone: Fractional Shortening 2D 38 % 28 - 44 % [facility] Work Phone: IVC Diameter 1.6 cm [facility] Work Phone: IVSd 1.3 cm 0.6 - 1.0 cm [facility] Work Phone: LA Diameter 2.7 cm [facility] Work Phone: LA Volume 2C 43 mL 18 - 58 mL [facility] Work Phone: LA Volume 4C 41 mL 18 - 58 mL [facility] Work Phone: LA Volume A/L 45 mL [facility] Work Phone: LV E' Lateral Velocity 11 cm/s [facility] Work Phone: LV E' Septal Velocity 7 cm/s [facility] Work Phone: LV EDV A2C 84 mL [facility] Work Phone: LV EDV A4C 55 mL [facility] Work Phone: LV EDV BP 69 mL 67 - 155 mL [facility] Work Phone: LV Ejection Fraction A2C 73 % [facility] Work Phone: LV Ejection Fraction A4C 69 % [facility] Work Phone: LV ESV A2C 22 mL [facility] Work Phone: LV ESV A4C 17 mL [facility] Work Phone: LV ESV BP 20 mL 22 - 58 mL [facility] Work Phone: LV Mass 2D 149.5 g 88 - 224 g [facility] Work Phone: LV RWT Ratio 0.51 [facility] Work Phone: LVIDd 3.9 cm 4.2 - 5.9 cm [facility] Work Phone: LVIDs 2.4 cm [facility] Work Phone: LVOT Area 4.2 cm2 [facility] Work Phone: LVOT Cardiac Output 6.2 liter/minute [facility] Work Phone: LVOT Diameter 2.3 cm [facility] Work Phone: LVOT Mean Gradient 2 mmHg [facility] Work Phone: LVOT Peak Gradient 4 mmHg [facility] Work Phone: LVOT Peak Velocity 1.0 m/s [facility] Work Phone: LVOT SV 84.7 ml [facility] Work Phone: LVOT VTI 20.4 cm [facility] Work Phone: LVOT:AV VTI Index 0.80 [facility] Work Phone: LVPWd 1.0 cm 0.6 - 1.0 cm [facility] Work Phone: MV A Velocity 0.84 m/s [facility] Work Phone: MV E Velocity 0.81 m/s [facility] Work Phone: MV E Wave Deceleration Time 223.8 ms [facility] Work Phone: MV E/A 0.96 [facility] Work Phone: RV Free Wall Peak S' 15 cm/s [facility] Work Phone: RVSP 24 mmHg [facility] Work Phone: Sinotubular Junction 2.9 cm [facility] Work Phone: TAPSE 3.1 cm 1.7 cm [facility] Work Phone: TR Max Velocity 2.28 m/s [facility] Work Phone: TR Peak Gradient 21 mmHg [facility] Work Phone: [facility] Work Phone: US Heart Transthoracicon Left Ventricle: Left ventricle is smaller than normal. Mildly increased wall thickness. Hyperdynamic left ventricular systolic function. EF by 2D Simpsons Biplane is 71%. Normal wall motion. Right Ventricle: Right ventricle size is normal. Normal systolic function. Interatrial Septum: No interatrial shunt visualized on color Doppler. Agitated saline study was negative with and without provocation. Right Atrium: Right atrium is mildly dilated. Left Ventricle Left ventricle is smaller than normal. Mildly increased wall thickness. Hyperdynamic left ventricular systolic function. EF by 2D Simpsons Biplane is 71%. Normal wall motion. Right Ventricle Right ventricle size is normal. Normal systolic function. Left Atrium Left atrium size is normal. Right Atrium Right atrium is mildly dilated. IVC/SVC IVC diameter is normal and decreases greater than 50% during inspiration; therefore the estimated right atrial pressure is normal (~3 mmHg). Mitral Valve Valve structure is normal. Trace regurgitation. No stenosis noted. Tricuspid Valve Valve structure is normal. Trace regurgitation. Normal RVSP. RVSP is 24 mmHg. Aortic Valve Trileaflet. No cusp thickening. No cusp calcification. No regurgitation. No stenosis. Pulmonic Valve The pulmonic valve was not well visualized. Trace regurgitation. Ascending Aorta Normal sized sinuses of Valsalva and ascending aorta. Pericardium Evidence of prominent epicardial fat. No pericardial effusion. Septum No interatrial shunt visualized on color Doppler. Agitated saline study was negative with and without provocation. Study Details Image quality: fair. Heart rate: 72 bpm. Blood pressure: 156/95 mmHg. The underlying ECG rhythm was sinus rhythm. Multiple injections performed with and without Valsalva maneuver. Saline contrast was given to evaluate for intracardiac shunt. Bubble study was with Valsalva and without Valsalva. CV CPACS Vital signsOrdered By: Leia Lopez on 06-19-2023 Heart rate 81 /min bpm [facility] Phone: APTTon 06-18-2023 aPTT Coag (Bld) [Time] 31.3 s Normal 25.4 - 38.4 J [facility] Comment on above: Performed By: #### 2 [id number] #### [facility],[address] [place], [place] [id number] CBC (NO DIFF)on 06-18-2023 CBC panel Auto (Bld) Normal [facility] Comment on above: Result Comment: CBC( WITHOUT DIFFERENTIAL) Performed By: #### 2 [id number] #### [facility],[address] [place], [place] [id number] Erythrocyte distribution width (RBC) [Ratio] 12.6 % Normal 12.0 - 15.6 [facility] Comment on above: Performed By: #### 2 30203 #### [facility],[address] [place], [place] [id number] Hematocrit (Bld) [Volume fraction] 46.8 % Normal 40.0 - 52.0 [facility] Comment on above: Performed By: #### 2 12885 #### [facility],[address] [place] [address] 09881 Hemoglobin (Bld) [Mass/Vol] 15.8 g/dL Normal 13.0 - 17.5 [facility] Comment on above: Performed By: #### 2 60841 #### [facility],[address] [place] [address] 18038 MCH (RBC) [Entitic mass] 31 pg Normal 27 - 33 [facility] Comment on above: Performed By: #### 2 64852 #### [facility],[address] [place] [address] 79110 MCHC 34 X10 3 Normal 32 - 36 [facility] Comment on above: Performed By: #### 2 25733 #### [facility],[address] [place] [address] 37605 MCV (RBC) [Entitic vol] 92 fL Normal 81 - 98 [facility] Comment on above: Performed By: #### 2 15696 #### [facility],[address] [place] [address] 33342 PLATELET 248 x10EE3/UL Normal 150 - 450 [facility] Comment on above: Performed By: #### 2 84127 #### [facility],[address] [place] [address] 85452 Platelet mean volume (Bld) [Entitic vol] 7.3 fL Normal 6.4 - 10.5 [facility] Comment on above: Result Comment: {CB] Performed By: #### 2 21415 #### [facility],[address] [place] [address] 01120 RBC 5.10 x 10EE6/UL Normal 4.50 - 6.00 [facility] Comment on above: Performed By: #### 2 09285 #### [facility],[address] [place] [address] 95409 WBC 7.5 x 10EE3/UL Normal 4.5 - 10.8 [facility] Comment on above: Performed By: #### 2 29809 #### [facility],[address] [place] [address] 56686 CMP with eGFRon 06-18-2023 AGE 63 years Normal [facility] Comment on above: Performed By: #### 2 81189 #### [facility],[address] [place] [address] 44709 Albumin [Mass/Vol] 3.7 g/dL Normal 3.4 - 5.0 [facility] Comment on above: Performed By: #### 2 86145 #### [facility],[address] [place] [address] 13197 Albumin/Globulin [Mass ratio] 0.9 {ratio} Normal 0.9 - 1.6 [facility] Comment on above: Performed By: #### 2 49926 #### [facility],[address] [place] [address] 30404 ALK PHOS 105 U/L Normal 46 - 116 [facility] Comment on above: Performed By: #### 2 44594 #### [facility],[address] [place] [address] 50327 ALT [Catalytic activity/Vol] 26 U/L Normal 16 - 63 [facility] Comment on above: Performed By: #### 2 40299 #### [facility],[address] [place] [address] 77135 Anion gap [Moles/Vol] 13 mmol/L Normal 10 - 20 [facility] Comment on above: Performed By: #### 2 66759 #### [facility],[address] [place] [address] 47576 AST [Catalytic activity/Vol] 14 U/L Low 15 - 37 [facility] Comment on above: Performed By: #### 2 38840 #### [facility],[address] [place] [address] 46558 B/C RATIO 15 ratio Normal 0 - 30 [facility] Comment on above: Performed By: #### 2 54709 #### [facility],[address] [place] [address] 42928 Bilirubin [Mass/Vol] 0.7 mg/dL Normal 0.2 - 1.0 [facility] Comment on above: Performed By: #### 2 71296 #### [facility],[address] [place] [address] 71718 Calcium [Mass/Vol] 9.3 mg/dL Normal 8.5 - 10.1 [facility] Comment on above: Performed By: #### 2 39053 #### [facility],[address] [place], [place] [id number] Chloride [Moles/Vol] 101 mmol/L Normal 98 - 107 [facility] Comment on above: Performed By: #### 2 30324 #### [facility],[address] [place] [address] 28395 CMP with eGFR Normal [facility] Comment on above: Result Comment: COMP REHENSIVE METABOLIC PANEL Performed By: #### 2 97084 #### [facility],[address] [place] [address] 61422 CO2 [Moles/Vol] 26.4 mmol/L Normal 21.0 - 32.0 [facility] Comment on above: Performed By: #### 2 30581 #### [facility],[address] [place] [address] 38051 Creatinine [Mass/Vol] 0.93 mg/dL Normal 0.70 - 1.30 [facility] Comment on above: Performed By: #### 2 54472 #### [facility],[address] [place] [address] 16870 GFR/1.73 sq M.predicted among non-blacks MDRD (S/P/Bld) [Vol rate/Area] mL/min/{1.73_m2} Normal 60 - 999 [facility] Comment on above: Performed By: #### 2 02876 #### [facility],[address] [place] [address] 13006 Result Comment: ACCO RDING TO THE NATIONAL KIDNEY DISEASE EDUCATION PROGRAM(NKDE), A NORMAL eGFR IS A VALUE GREATER THAN OR EQUAL TO 60 ML/MIN/1.73 SQ METERS. CHRONIC KIDNEY DISEASE: <60mL/MIN/1.73 SQ METERS KIDNEY FAILURE: <15mL/MIN/1.73 SQ METERS THIS TEST SHOULD ONLY BE USED FOR PATIENTS 18 YEARS OF AGE AND OLDER. Globulin (S) [Mass/Vol] 4.2 g/dL High 1.5 - 3.8 [facility] Comment on above: Performed By: #### 2 13445 #### [facility],[address] [place] [address] 79258 Glucose [Mass/Vol] 104 mg/dL Normal 74 - 106 [facility] Comment on above: Performed By: #### 2 22832 #### [facility],[address] [place] [address] 05453 Potassium [Moles/Vol] 4.1 mmol/L Normal 3.5 - 5.1 [facility] Comment on above: Performed By: #### 2 96942 #### [facility],[address] [place] [address] 49323 Protein [Mass/Vol] 7.9 g/dL Normal 6.4 - 8.2 [facility] Comment on above: Performed By: #### 2 30322 #### [facility],[address] [place] [address] 25955 Sodium [Moles/Vol] 136 mmol/L Normal 136 - 145 [facility] Comment on above: Performed By: #### 2 33845 #### [facility],[address] [place] [address] 33054 Urea nitrogen [Mass/Vol] 14 mg/dL Normal 7 - 18 [facility] Comment on above: Performed By: #### 2 25476 #### [facility],[address] [place] [address] ANGIOGRAPHY HEAD W/CONTRA STon 06-18-2023 CT ANGIOGRAPHY HEAD W/CONTRAST [address] [address] Patient: RONEY SMALL Phone#: : 1960 Age: 63 Gender: M Pt. Type: ER Account: [id number] Location: [facility] Ordering: OTIS GANDARA Exam Date: 06/18/2023/10:45 Family Phys: NO DOCTOR Charge Code: [id number] Physician: Briscoe Order #: [id number] Dose#: 10.9 mGy PROCEDURE: CT ANGIOGRAPHY HEAD WITH CONTRAST COMPARISON: None. INDICATIONS: Altered mental status. TECHNIQUE: After obtaining the patient's consent, CT images of the head were obtained with non- ionic contrast, and MPR and 3D imaging were created and interpreted to optimize visualization of vascular anatomy. All CT scans at this facility use dose modulation, iterative reconstruction, and/or weight based dosing when appropriate to reduce radiation dose to as low as reasonably achievable. IV CONTRAST: Visipaque 320,100ml TOTAL DOSE: 10.9 CTDIvol(mGy) FINDINGS: VASCULATURE: Intracranial ICAs: Atherosclerotic calcifications of the cavernous carotid arteries. No significant stenosis. No visible aneurysm or vascular malformation. Anterior circulation: Normal. No significant stenosis. No visible aneurysm or vascular malformation. Anterior communicating artery present. Middle circulation: Normal. No significant stenosis. No visible aneurysm or vascular malformation. Posterior circulation: Normal. No significant stenosis. No visible aneurysm or vascular malformation. There is a right posterior communicating artery. Vertebrobasilar circulation: Normal. No significant stenosis. No visible aneurysm or vascular malformation. Other: Complete opacification of the left maxillary sinus, please refer to CT head performed same day. CONCLUSION: 1. Patent intracranial arteries. Dictated by: Cassidy Manning MD on 06/18/2023 at 11:48 Continued Report - Page 2 of 2 Patient: RONEY SMALL Phone#: : 1960 Age: 63 Gender: M Pt. Type: ER Account: [id number] Location: 052 Ordering: [facility] Exam Date: 06/18/2023/10:45 Family Phys: NO DOCTOR Charge Code: [id number] Physician: Briscoe Order #: [id number] Dose#: 10.9 mGy Approved by: Cassidy Manning MD on 06/18/2023 at 11:54 [facility] [address] ANGIOGRAPHY NECKon 2023 CT ANGIOGRAPHY [place] [address] Patient: ROENY SMALL Phone#: : 1960 Age: 63 Gender: M Pt. Type: ER Account: [id number] Location: 052 Ordering: [facility] Exam Date: 06/18/2023/10:45 Family Phys: NO DOCTOR Charge Code: [id number] Physician: Briscoe Order #: [id number] Dose#: 10.9 mGy PROCEDURE: CT ANGIOGRAPHY CAROTIDS WITH CONTRAST COMPARISON: None. INDICATIONS: Altered mental status. TECHNIQUE: After obtaining the patient's consent, CT images of the neck were obtained with non- ionic intravenous contrast material. MPR/MIPS and 3D images were created to optimize visualization of vascular anatomy. All CT scans at this facility use dose modulation, iterative reconstruction, and/or weight based dosing when appropriate to reduce radiation dose to as low as reasonably achievable. IV CONTRAST: Visipaque 320,100ml TOTAL DOSE: 10.9 CTDIvol(mGy) FINDINGS: LEFT INTERNAL CAROTID: Calcified atherosclerosis at the bifurcation without luminal narrowing. No occlusion. EXTERNAL CAROTID: No hemodynamically significant stenosis or dissection. COMMON CAROTID: No hemodynamically significant stenosis or dissection. VERTEBRAL: No hemodynamically significant stenosis or dissection. RIGHT INTERNAL CAROTID: Calcified and noncalcified atherosclerotic plaque at the bifurcation contributing to mild luminal narrowing. No occlusion. EXTERNAL CAROTID: No hemodynamically significant stenosis or dissection. COMMON CAROTID: No hemodynamically significant stenosis or dissection. VERTEBRAL: No hemodynamically significant stenosis or dissection. OTHER: Straightening of the normal cervical lordosis, this may be positional due to muscle spasm. Grade 1 anterolisthesis of C4 on C5. Disc height loss at C5- 6 and C6-7. There is uncovertebral hypertrophy and facet arthropathy contributing to foraminal narrowing. Azygous lobe at the right apex present, a normal variant. Continued Report - Page 2 of 2 Patient: RONEY SMALL Phone#: : 1960 Age: 63 Gender: M Pt. Type: ER Account: [id number] Location: 052 Ordering: [facility] [place] Exam Date: 06/18/2023/10:45 Family Phys: NO DOCTOR Charge Code: [id number] Physician: Briscoe Order #: [id number] Dose#: 10.9 mGy CONCLUSION: 1. Bilateral atherosclerotic plaque at the carotid bifurcation without significant narrowing. 2. Patent carotid and vertebral arteries of the neck. Dictated by: Cassidy Manning MD on 06/18/2023 at 11:29 Approved by: Cassidy Manning MD on 06/18/2023 at 11:[address] [facility] [address] BRAIN W/O CONTRAST 05-31 CT BRAIN W/O CONTRAST [place] [address] Patient: RONEY SMALL Phone#: : 1960 Age: 63 Gender: M Pt. Type: ER Account: [id number] Location: 052 Ordering: [facility] [place] Exam Date: 06/18/2023/10:41 Family Phys: NO DOCTOR Charge Code: [id number] Physician: Briscoe Order #: [id number] Dose#: 52.3 mGy PROCEDURE: CT BRAIN WITHOUT CONTRAST COMPARISON: None. INDICATIONS: Numbness. TECHNIQUE: CT images were obtained without contrast material. All CT scans at this facility use dose modulation, iterative reconstruction, and/or weight based dosing when appropriate to reduce radiation dose to as low as reasonably achievable. IV CONTRAST: No IV contrast used,0ml TOTAL DOSE: 52.3 CTDIvol(mGy) FINDINGS: CEREBRUM: No edema, hemorrhage, mass, or inappropriate atrophy. CEREBELLUM: No edema, hemorrhage, mass, or inappropriate atrophy. BRAINSTEM: No edema, hemorrhage, mass, or inappropriate atrophy. CSF SPACES: Ventricles, cisterns, and sulci are appropriate for age. No hydrocephalus, subarachnoid hemorrhage, or mass. SKULL: No mass or other significant visible lesion. SINUSES: Complete opacification of the left maxillary sinus with medial deviation of the medial maxillary sinus wall. There is widening of the ostiomeatal unit, series 5, image 18. There is thickening of the left maxillary sinus wall suggesting chronic obstructive changes. Mucosal thickening and opacification throughout the ethmoid air cells. Mild mucosal thickening of the right maxillary sinus and sphenoid sinuses. ORBITS: Limited views are unremarkable. OTHER: Atherosclerotic calcifications of the intracranial arteries. CONCLUSION: 1. No appreciable acute intracranial abnormality. Note: An acute ischemic event may not be initially evident on CT. 2. Complete opacification of the left maxillary sinus with widening of the ostiomeatal unit. 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 Recommend ENT follow-up for further evaluation. Continued Report - Page 2 of 2 Patient: RONEY SMALL Phone#: : 1960 Age: 63 Gender: M Pt. Type: ER Account: [id number] Location: 052 Ordering: OT[facility] Exam Date: 06/18/2023/10:41 Family Phys: NO DOCTOR Charge Code: [id number] Physician: Briscoe Order #: [id number] Dose#: 52.3 mGy Dictated by: Cassidy Manning MD on 06/18/2023 at 10:54 Approved by: Cassidy Manning MD on 06/18/2023 at 11:00 [facility] Consulton 06-18-2023 Consult Attestation signed by Kathrin Joshi MD at 06/18/2023 4:30 PM Neuro Critical Care / stroke Attending Patient personally discussed with the ED physician at the outside facility. Patient first presented with sudden onset of left arm tingling followed by weakness with inability to move the arm only with small movement of the fingers while in specific position that he uses at work there was no new to him symptoms persisted after CT CTA for what the outside Stroke service from the outside facility recommended TNK in which point the patient was transferred to us. On arrival to our department the patient had barely a mild left upper extremity pronation which was minimally noticeable. He was also hypertensive. Images are currently being uploaded from the outside facility he had a CT reportedly negative and a CTA head and neck also reported to be negative however I have not had a chance to see them in person Patient EKG essentially normal At this point the patient is being treated as a possible acute right hemispheric stroke and to prevent otherwise we will obtain an MRI of the brain and manage currently her his risk factors which include : hypertension Mild elevation of body mass index Completed stroke risk assessment Post TNK treatments blood pressure goals attained should be okay with systolic blood pressure up to 180 80 Starting tomorrow morning I personally interviewed and examined this patient , reviewed and attested the note for this patient. I reviewed the chart including MAR, labs, neuroimaging, other imaging studies and discussed my diagnostic impression and patient's plan of care with my KURT/resident, student and the consulting team and patient's family members/surrogate decision makers (in cases where the patient is incapacitated and unable to participate in their own care). [x] Encounter Face to Face [x] Consult [x] Level of care [x] V [x] will continue to follow Personal discussion of test results and plan of care with: Patient treatments and testing options informed consent and plan of care, ED physician, Family, ., . Thank you [facility] for the opportunity to be involved in this patient's care. INITIAL CONSULT NOTE. STROKE SERVICE Patient Name: Roney Small Patient : 1960 Acct: [id number] Date of Admission: 06/18/2023 Room/Bed: T2-225/T2-225 A PCP: David Sanz History of Present Ilness: 63 y.o. is right handed male with the chief Complaint of:L arm weakness/tingling 63yo M we are consulted for stroke. Patient from [facility] who was transferred after receiving thrombolytics. 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 He states that when he noticed it happened he was unable to function with the L hand as well and even though he knew he needed the hand to move, he couldn't make it do so. He denied any other weakness focality subjectively. On arrival to [place] he was given NIH of 3 for face, arm and leg on the L side. CTH unremarkable, CTA unremarkable. Decision for thrombolytics and [facility] transfer. Patient had no diagnosed medical problems. Takes a multivitamin daily. Daily tobacco smoker about 6-8 cigarettes. Daily ETOH consumption about 3-4 beers. Upon seeing him on his arrival to [facility] he was awake and pleasant. States that he thinks his arm is improving but something is still not fully normal. Denies any other complaints or focality of symptoms. Past Medical History: None Past Surgical History: @PSHNH@ Home Medications: Prior to Admission medications Not on File Current Hospital Medications: Current Facility-Administere d Medications: acetaminophen (Tylenol) tablet 650 mg, 650 mg, Oral, q6h PRN OR acetaminophen (Tylenol) suppository 650 mg, 650 mg, Rectal, q6h PRN, Josee Acierno, BUSINESS RISK CONSULTANT - MANAGING DIRECTOR atorvastatin (Lipitor) tablet 40 mg, 40 mg, Oral, Daily, Josee Acierno, BUSINESS RISK CONSULTANT - MANAGING DIRECTOR bisacodyl (Dulcolax) suppository 10 mg, 10 mg, Rectal, Daily PRN, Josee Acierno, BUSINESS RISK CONSULTANT - MANAGING DIRECTOR hydrALAZINE (Apresoline) injection 10 mg, 10 mg, IntraVENous, q1h PRN, Josee Acierno, BUSINESS RISK CONSULTANT - MANAGING DIRECTOR labetalol (Normodyne,Trandate) injection 10 mg, 10 mg, IntraVENous, q10 min PRN, Josee Acierno, BUSINESS RISK CONSULTANT - MANAGING DIRECTOR ondansetron ODT (Zofran-ODT) disintegrating tablet 4 mg, 4 mg, Oral, q8h PRN OR ondansetron (Zofran) injection 4 mg, 4 mg, IntraVENous, q6h PRN, Josee Acierno, BUSINESS RISK CONSULTANT - MANAGING DIRECTOR polyethylene glycol (PEG) 3350 (Miralax) packet 17 g, 17 g, Oral, Daily PRN, Josee Acierno, BUSINESS RISK CONSULTANT - MANAGING DIRECTOR sodium chloride 0.9 % infusion, 5-250 mL/hr, IntraVENous, PRN, Josee Acierno, BUSINESS RISK CONSULTANT - MANAGING DIRECTOR so (more content not included)... Normal [facility] IDNon 06-18-2023 IDN Problem: Knowledge Deficit Goal: Patient/family/careg iver demonstrates understanding of disease process, treatment plan, medications, and discharge instructions Outcome: Progressing Problem: Potential for Compromised Skin Integrity Goal: Skin Integrity is Maintained or Improved Outcome: Progressing Problem: Urinary Incontinence Goal: Perineal skin integrity is maintained or improved Outcome: Progressing The patient is Moderately Stable - Low risk of patient condition declining or worsening The patient's goals for the shift include The clinical goals for the shift include Over the shift, the patient did not make progress toward the following goals. Barriers to progression include bed rest order. Recommendations to address these barriers include time patient needs bedrest for 24 hours. Normal [facility] Laboratory - Chemistry and C hemistry - challengeon 06-18-2023 Troponin I.cardiac [Mass/Vol] ng/mL [facility] - 0.034 ng/mL [facility] Troponin I.cardiac [Mass/Vol] ng/mL [facility] - 0.034 ng/mL [facility] - Drug toxicology Ordered By: Madison Nichols on 06-18-2023 Amphetamines Ql (U) Negative Negative [facility] Benzodiazepines Ql (U) Negative Negative [facility] Cocaine Ql (U) Negative Negative [facility] Ethanol [Mass/Vol] Negative Negative [facility] Methadone Ql (U) Negative Negative [facility] Opiates Ql (U) Negative Negative [facility] th MEDICATION ASSISTED TREATMEN T PANELon 06-18-2023 Amphetamines Ql (U) Negative Normal Negative [facility] Comment on above: Performed By: #### L [id number] ####Infant Lead Teacher: SAVANNAH DEL CID ([id number])[facility] [place] [address] BARBITURATES Negative Normal Negative [facility] Comment on above: Performed By: #### L [id number] ####Infant Lead Teacher: SAVANNAH DEL CID ([id number])[facility] ([facility])[address] [place] [address] Benzodiazepines Ql (U) Negative Normal Negative [facility] Comment on above: Performed By: #### L [id number] ####Infant Lead Teacher: SAVANNAH DEL CID ([id number])[facility] ([facility])[address] [place] [address] BUPRENORPHINE SCREEN Negative Normal Negative [facility] Comment on above: Performed By: #### L [id number] ####Infant Lead Teacher: SAVANNAH DEL CID ([id number])[facility] ([facility])[address] [place] [address] Cocaine Ql (U) Negative Normal Negative [facility] Comment on above: Performed By: #### L [id number] ####Infant Lead Teacher: SAVANNAH DEL CID ([id number])[facility] ([facility])[address] [place] [address] ETHANOL-ETOHO Negative Normal Negative [facility] Comment on above: Result Comment: ORDTricia R COMMENTS: The expected value for the drugs listed above is Negative. The following drugs or drug groups have been screened for by Immunoassay at the following thresholds: Amphetamine class(1000ng/mL) Barbituates(200ng/mL) Benzodiazepines(200ng/mL) Cocaine(300ng/mL) Ethanol (50 ng/mL) Methadone(300ng/mL) Opiates(300ng/mL) Oxycodone(100ng/mL) PCP(25ng/mL) Buprenorphine(5ng/mL) THC(50ng/mL) Fentanyl(1ng/mL) Positive results are NOT confirmed by a more specific alternative method unless requested. If confirmation is needed, request confirmation under separate order. NOTE: These results are for medical treatment only. Analysis performed using non-forensic procedures. Performed By: #### L [id number] ####Infant Lead Teacher: SAVANNAH DEL CID ([id number])[facility] ([facility])[address] [place] [address] FENTANYL Negative Normal Negative [facility] Comment on above: Performed By: #### L [id number] ####Infant Lead Teacher: SAVANNAH DEL CID ([id number])[facility] ([facility])[address] [place] [address] Methadone Ql (U) Negative Normal [facility] Comment on above: Performed By: #### L [id number] ####Infant Lead Teacher: SAVANNAH DEL CID ([id number])[facility] ([facility])[address] [place] [address] Opiates Ql (U) Negative Normal Negative [facility] Comment on above: Performed By: #### L [id number] ####Infant Lead Teacher: SAVANNAH DEL CID ([id number])[facility] ([facility])[address] [place] [address] OXYCODONE/OXYMORPHONE Negative Normal [facility] Comment on above: Performed By: #### L [id number] ####Infant Lead Teacher: SAVANNAH DEL CID ([id number])[facility] ([facility])[address] [place] [address] PCP Negative Normal Negative [facility] Comment on above: Performed By: #### L [id number] ####Infant Lead Teacher: SAVANNAH DEL CID ([id number])[facility] ([facility])[address] [place] [address] THC-MTTHC Positive Normal Negative [facility] Comment on above: Performed By: #### L [id number] ####Infant Lead Teacher: SAVANNAH DEL CID ([id number])[facility])[address] [place] [address] No Panel InformationOrdered By: Madison Nichols on 06-18-2023 BARBITURATES Negative Negative [facility] BUPRENORPHINE SCREEN Negative [facility] FENTANYL Negative Negative [facility] OXYCODONE/OXYMORPHONE Negative Negative [facility] PCP Negative Negative [facility] THC Positive Negative [facility] The expected value for the drugs listed above is Negative. The following drugs or drug groups have been screened for by Immunoassay at the following thresholds: Amphetamine class(1000ng/mL) Barbituates(200ng/mL ) Benzodiazepines(200n g/mL) Cocaine(300ng/mL) Ethanol (50 ng/mL) Methadone(300ng/mL) Opiates(300ng/mL) Oxycodone(100ng/mL) PCP(25ng/mL) Buprenorphine(5ng/mL ) THC(50ng/mL) Fentanyl(1ng/mL) Positive results are NOT confirmed by a more specific alternative method unless requested. If confirmation is needed, request confirmation under separate order. NOTE: These results are for medical treatment only. Analysis performed using non-forensic procedures. [facility] PROTHROMBIN TIME AND INRon 0 06-18-2023 INR Coag (PPP) [Relative time] 1.0 {INR} Normal 0.8 - 1.2 [facility] Comment on above: Result Comment: T HE HEMOSIL THROMBOPLASTIN REAGENT USED IN THE PROTHROMBIN TIME TEST INTERACTS WITH THE DRUG CUBICIN (DAPTOMYCIN) AND WILL RESULT IN FALSELY ELEVATED PT / INR RESULTS INR INTERPRETATION INR INDICATION PREVENTION AND TREATMENT OF THROMBOEMBOLISM ASSOCIATED WITH: 2.0 - 3.0 ATRIAL FIBRILLATION, BIOPROSTHETIC HEART VALVES, PULMONARY EMBOLISM, VENOUS THROMBOSIS, SYSTEMIC EMBOLISM POST MYOCARDIAL INFARCTION 2.5 - 3.5 MECHANICAL HEART VALVES Performed By: #### 2 [id number] #### [address] [address] PROTHROMBIN TIME AND INR Normal [facility] Comment on above: Result Comment: PROT HROMBIN TIME AND INR Performed By: #### 2 [id number] #### [facility],[address] [place] [address] PT-COUMADIN 11.4 sec Normal 9.3 - 14.1 [facility] Comment on above: Performed By: #### 2 [id number] #### [facility],[address] [place] [address] Progress Noteon 06-18-2023 Progress Note Speech-Language Pathology SPEECH LANGUAGE PATHOLOGY [facility] Bedside Swallow Evaluation Patient Name: Roney Small Evaluation Date: 06/18/2023 Date of : 1960 Admission Date: 06/18/2023 1:33 PM Age: 63 y.o. Room/Bed: T2-225/T2-225 A IMPRESSION: No s/s oropharyngeal dysphagia. No overt clinical s/s pulmonary compromise with PO. Risk factors for aspiration include cough with liquids earlier today. RECOMMENDATION: Recommend Regular solids and Thin liquids and meds as tolerated and the following precautions: - Upright positioning for all PO intake - Small bites/sips Pt would benefit from skilled acute BUNDLE TIER services to ensure diet tolerance. Frequency: 3 days/wk for 1 week Barriers: None Prognosis: excellent D/C Recommendations: No follow up therapy recommended post discharge Subjective Patient alert and cooperative. Seen upright in bed. Answers all basic questions with clear, strong vocal quality. Follows all basic commands. Visitors at bedside - significant other. Spoke with FRANCIA Falcon who cleared pt to be evaluated. Dysphagia History: No history of BUNDLE TIER services in EMR with retrospective chart review Baseline Diet: regular with thin liquids Current Diet: was NPO at time of evaluation Dietary Orders (From admission, onward) Start Ordered 06/18/23 1518 Adult diet Regular Diet effective now Question: Diet type Answer: Regular 06/18/23 1517 Tube Feeding: no Tracheostomy: no Recent Chest Xray/CT of Chest: No results found for this visit on 06/18/23. Oxygen: Past Medical History: No past medical history on file. Past Surgical History: No past surgical history on file. 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 NIH 3 (LUE/LLE weakness, +ataxia). Stroke team called. CTH with no acute intracranial abnormalities, but complete opacification of the left maxillary sinus with widening of the ostiomeatal unit. CTA with verena atherosclerotic plaque at the carotid bifurcation without significant narrowing and patent carotid and vertebral arteries. Pt given TNK at ~11:09am. Patient transferred and admitted to T2 ICU for further stroke w/u and management. NIH 1 on arrival to ICU for slight upward drift of LUE. Patient Complaint: patient reports thirst; failed nursing swallow screen due to cough Pain: RN managing pain. PPE Worn: gloves Objective Bedside swallow eval completed. Oral Motor Mechanism Adequate structure, strength, and ROM in lingual, labial, and buccal musculature. Timely volitional swallow. Adequate dentition. Oral Hygiene: moist, clean Swallowing Examination PO Trials - ice chips, (teaspoon, fed by clinician) - thin liquid, (teaspoon, cup edge, straw) - puree, (fed by clinician) - regular solids Oral Phase Pt with adequate oral receipt of PO trials. No anterior spillage. Mastication appeared complete, organized, and timely. Oral transit time appears WFL. No oral residue. Pharyngeal Phase Hyolaryngeal excursion clinically appears adequate and timely per palpation. 1-2 swallows palpated per bolus, likely indicative of adequate pharyngeal clearance. Brief throat clear noted x 1 but no additional s/s of aspiration with any PO presented. No coughing or change in vocal quality. Additional Observations: throat clearing noted without PO presentations as well Education Education Given: role of therapy, diet recommendations Given To: patient, significant other, and RN Response: verbalizes understanding Goals Patient Stated Goal: to eat and drink Encounter Problems Encounter Problems (Active) Swallowing Patient will tolerate recommended food and liquid consistencies without clinical signs and symptoms of aspirations Start: 06/18/23 Expected End: 06/25/23 Therapy Time BUNDLE TIER Individual Minutes Time In: 1500 Time Out: 1515 Minutes: 15 Lenora Pickard MA, CCC/BUNDLE TIER Normal [facility] Progress Note OCCUPATIONAL THERAPY [facility] Name/MRN: Roney Small ([id number]) Date: 06/18/2023 OT orders received, chart reviewed. Pt currently with bedrest orders. Hold OT pending upgraded activity orders. Will re-attempt as schedule permits. Shira Chaves OTR/L Normal [facility] TROPONIN Ion 06-18-2023 Troponin I.cardiac [Mass/Vol] ng/mL Normal <0.034 [facility] Comment on above: Result Comment: KEERTHI Huerta COMMENTS: Patients with high levels of Biotin oral intake (ie >5 mg/day) may have falsely decreased Troponin levels. Performed By: #### L [id number] ####Infant Lead Teacher: SAVANNAH DEL CID ([id number])[facility] [place] [address] TROPONIN, WITH SERIAL REFLEX on 06-18-2023 Troponin I.cardiac [Mass/Vol] ng/mL Normal <0.034 [facility] Comment on above: Result Comment: KEERTHI Huerta COMMENTS: Patients with high levels of Biotin oral intake (ie >5 mg/day) may have falsely decreased Troponin levels. Performed By: #### L [id number] ####Infant Lead Teacher: SAVANNAH DEL CID ([id number])[facility] [place] [address] Troponin I.cardiac [Mass/Vol ]on 06-18-2023 Interpretation and review of laboratory results Normal [facility] Patients with high levels of Biotin oral intake (ie >5 mg/day) may have falsely decreased Troponin levels. [facility] Interpretation and review of laboratory results Normal [facility] Patients with high levels of Biotin oral intake (ie >5 mg/day) may have falsely decreased Troponin levels. [facility] CNPTOUTREACHozoraida 05-28-2019 CNPTOUTREACH Patient Outreach (INTMWS) KB SMALL ([id number]) 1960 M Date Time Provider Department 05/28/19 TIANNA BEVERLY) INTMWS During your visit today, we recorded the following information about you: Tianna Beverly CMA 05/28/2019 9:14 AM Signed [facility] PRINCIPAL CONSULTING ENGINEER QUICKNOTE Provider Action/FYI: Patients charted reviewed in teamlet with Dr. Jonas Last patient activity 12/26/2015 Last PCP visit 05/21/2006 Based on this information Dr. Jonas has been removed as PCP. Patient identified by name and . 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 Tobacco use disorder [F17.200] 03/23/2010 Encounter Status:Closed by TIANNA BEVERLY CMA on 05/28/19 Normal [facility] PROGRESSon 05-28-2019 PROGRESS HNO ID: [id number] Author: Tianna Beverly Service: ? Author Type: Bank Reconciliator Type: Progress Notes Filed: 05/28/2019 9:14 AM Note Text: [facility] PRINCIPAL CONSULTING ENGINEER QUICKNOTE Provider Action/FYI: Patients charted reviewed in teamlet with Dr. Jonas Last patient activity 12/26/2015 Last PCP visit 05/21/2006 Based on this information Dr. Jonas has been removed as PCP. Patient identified by name and . Tianna Beverly CMA Normal [facility] Vital Signs Date Time Vital Sign Value Performing Clinician Faci lity 11-19-2024 11:34-0400 Body height 177.[address] Tamy Hernandez MD Work Phone: [facility] 11-19-2024 11:34-0400 Body mass index (BMI) [Ratio] 27 kg/m2 Dr. Tamy Hernandez MD Work Phone: [facility] 11-19-2024 11:34-0400 Body temperature 98.4 [degF] Dr. Tamy Hernandez MD Work Phone: [facility] 11-19-2024 11:34-0400 Body weight 85.[address] Tamy Hernandez MD Work Phone: [facility] 11-19-2024 11:34-0400 Diastolic blood pressure 83 mm[Hg] Dr. Tamy Hernandez MD Work Phone: [facility] 11-19-2024 11:34-0400 Heart rate 72 /min Dr. Tamy Hernandez MD Work Phone: [facility] 11-19-2024 11:34-0400 Respiratory rate 16 /min Dr. Tamy Hernandez MD Work Phone: [facility] 11-19-2024 11:34-0400 SaO2% (BldA) [Mass fraction] 95 % Dr. Tamy Hernandez MD Work Phone: [facility] 11-19-2024 11:34-0400 Systolic blood pressure 143 mm[Hg] Dr. Tamy Hernandez MD Work Phone: [facility] 06-20-2023 11:15-0500 Diastolic blood pressure 83 mm[Hg] Stephie Collins MD Work Phone: [facility] 06-20-2023 11:15-0500 Heart rate 68 /min Stephie Collins MD Work Phone: [facility] 06-20-2023 11:15-0500 Respiratory rate 14 /min Stephie Collins MD Work Phone: [facility] 06-20-2023 11:15-0500 Systolic blood pressure 143 mm[Hg] Stephie Collins MD Work Phone: [facility] 06-20-2023 10:50-0500 Body height 175.3 cm Stephie Collins MD Work Phone: [facility] 06-20-2023 10:50-0500 Body mass index (BMI) [Ratio] 28.8 kg/m2 Stephie Collins MD Work Phone: [facility] 06-20-2023 10:50-0500 Body weight 88.45 kg Stephie Collins MD Work Phone: [facility] 06-20-2023 10:45-0500 Body temperature 97.3 [degF] Stephie Collins MD Work Phone: [facility] 06-20-2023 10:45-0500 SaO2% (BldA) [Mass fraction] 95 % Stephie Collins MD Work Phone: [facility] 02-27-2022 08:58-0400 Body temperature 97.3 [degF] Dr. Tamy Hernandez Work Phone: [facility] Work Phone: 02-27-2022 08:58-0400 Body weight 86.[address] Tamy Hernandez Work Phone: [facility] Work Phone: 02-27-2022 08:58-0400 Diastolic blood pressure 82 mm[Hg] Dr. Tamy Hernandez Work Phone: [facility] Work Phone: 02-27-2022 08:58-0400 Heart rate 75 /min Dr. Tamy Hernandez Work Phone: [facility] Work Phone: 02-27-2022 08:58-0400 Respiratory rate 16 /min Dr. Tamy Hernandez Work Phone: [facility] Work Phone: 02-27-2022 08:58-0400 SaO2% (BldA) [Mass fraction] 96 % Dr. Tamy Hernandez Work Phone: [facility] Work Phone: 02-27-2022 08:58-0400 Systolic blood pressure 139 mm[Hg] Dr. Tamy Hernandez Work Phone: [facility] Work Phone: Encounters Encounter Date Encounter Type Care Provider Facility Start: 12-12-2024 ambulatory Tamy Mary Facility :[facility] Start: 11-25-2024 ambulatory Tamyandrews Hernandez Facility :[facility] Start: 11-19-2024 End: 11-19-[address] Tamy Hernandez MD -[facility] Work Phone: Start: 11-19-2024 End: 11-19-[address] Tamy Hernandez MD Work Phone: -[facility] Start: 09-17-2023 Telephone encounter Ania Daniel RN [facility] Trauma Neuro Progressive Care Unit PCU 3W Comment on above: Hospital Follow-up ( 90 day mRS= unable to reach. ) Start: 09-14-2023 Telephone encounter Ania Daniel RN [facility] Trauma Neuro Progressive Care Unit PCU 3W Comment on above: Hospital Follow-up ( 90 day mRS) Start: 08-01-2023 End: 08-02-2023 ambulatory ESTEFANIA BROWN [facility] Start: 08-01-2023 End: 08-01-2023 Subsequent hospital visit by physician Estefania Brown BUSINESS RISK CONSULTANT - MANAGING DIRECTOR Work Phone: [facility] [address] Non-Invasive Cardiology Comment on above: Stroke of unknown ca use (HCC) Start: 07-17-2023 Telephone encounter Dejah Lopez MD Work Phone: [facility] Comment on above: FYI Start: 06-28-2023 Telephone encounter Ania Daniel RN [facility] Trauma Neuro Progressive Care Unit PCU 3W Start: 06-27-2023 Telephone encounter Ania Daniel RN [facility] Trauma Neuro Progressive Care Unit PCU 3W Comment on above: Hospital Follow-up Start: 06-26-2023 Telephone encounter Ania Daniel RN [facility] Trauma Neuro Progressive Care Unit PCU 3W Comment on above: Hospital Follow-up Start: 06-21-2023 Telephone encounter Estefania joya BUSINESS RISK CONSULTANT - MANAGING DIRECTOR Work Phone: [facility] Start: 06-20-2023 ambulatory [facility] Start: 06-20-2023 Patient encounter procedure [facility]ull[facility] Start: 06-20-2023 Telephone encounter Sarika will RN [facility] Start: 06-18-2023 End: 06-20-2023 Evaluation and management of inpatient STEPHIE COLLINS [facility] Start: 06-18-2023 End: 06-20-2023 Evaluation and management of inpatient Stephie Collins MD Work Phone: [facility] Trauma Neuro Progressive Care Unit PCU 3W Comment on above: Stroke of unknown ca use (HCC) (Primary Dx); Cerebrovascular accident (CVA), unspecified mechanism (HCC); Acute left arterial ischemic stroke, ICA (internal carotid artery) (HCC) Start: 06-18-2023 End: 06-18-2023 Emergency department patient visit [facility] Start: 02-27-2022 End: 02-27-[address] Tamy Hernandez Work Phone: [facility] Work Phone: Start: 02-27-2022 End: 02-27-[address] Tamy Hernandez Work Phone: [facility]-Radiology, [facility] Start: 02-27-2022 End: 02-27-[address] Tamy Hernandez Work Phone: [facility] Procedures Date Procedure Procedure Detail Performing Clinician Start: 06-20-2023 Echo transesophag r- t 2d w/prb img debraisj i&r Kathrin Joshi MD Work Phone: Start: 06-20-2023 Comprehensive metabo lic panel Josee Acargeliano BUSINESS RISK CONSULTANT - MANAGING DIRECTOR Work Phone: Start: 06-20-2023 Mri brain brain stem w/o w/contrast material Josee Menjivar BUSINESS RISK CONSULTANT - MANAGING DIRECTOR Work Phone: Start: 06-19-2023 Ct head/brain w/o co ntrast material Josee Acargeliano BUSINESS RISK CONSULTANT - MANAGING DIRECTOR Work Phone: Start: 06-19-2023 Echo tthrc r-t 2d w/wom-mode compl spec&colr d Josee Acierno BUSINESS RISK CONSULTANT - MANAGING DIRECTOR Work Phone: Start: 06-19-2023 Comprehensive metabo lic panel Josee Acargeliano BUSINESS RISK CONSULTANT - MANAGING DIRECTOR Work Phone: Start: 06-19-2023 Lipid panel Josee Ying rno BUSINESS RISK CONSULTANT - MANAGING DIRECTOR Work Phone: Start: 06-19-2023 Lipid 1996 panel - S neftali or Plasma Stephie Collins MD Work Phone: Start: 06-18-2023 MEDICATION ASSISTED TREATMENT PANEL Josee Mejnivar BUSINESS RISK CONSULTANT - MANAGING DIRECTOR Work Phone: Start: 06-18-2023 Assay of troponin quantitative Josee Acierno BUSINESS RISK CONSULTANT - MANAGING DIRECTOR Work Phone: Start: 06-18-2023 Assay of troponin quantitative Josee Acmelodie BUSINESS RISK CONSULTANT - MANAGING DIRECTOR Work Phone: Start: 06-18-2023 Ecg routine ecg w/le ast 12 lds trcg only w/o i&r Josee Tiara BUSINESS RISK CONSULTANT - MANAGING DIRECTOR Work Phone: Start: 02-27-2022 Plain chest X-ray Dr. Lauren Hernandez Work Phone: Plan of Treatment Date Care Activity Detail Author Start: 06-19-2028 Lipid panel Lipid Panel [facility] Start: 06-19-2026 Diabetes mellitus screening Diabetes Screening [facility] Start: 11-19-2024 Evaluation of diagnostic study results [facility] Start: 12-30-2023 Influenza vaccination Influenz a Vaccine (Season Ended) [facility] Start: 08-01-2023 End: 08-01-2023 Patient encounter procedure 08/01/2023 10:00 AM EDT Appointment [facility] [address] [facility] [address] [place] [id number] Estefania Brown BUSINESS RISK CONSULTANT - MANAGING DIRECTOR [address] [facility] [address] [place] [address] [facility] [address] [facility] Start: 06-21-2023 End: 06-21-2025 Cardiac event monitor (30 days) Cardiac event monitor (30 days) [facility] Routine Stroke of unknown cause (HCC) Expected: 06/21/2023, Expires: 06/21/2025 [facility] Work Phone: Comment on above: Expected: 06/21/2023 , Expires: 06/21/2025 Start: 12-29-2022 COVID-19 Vaccine ( season) COVID-19 Vaccine ( season) [facility] Start: 12-29-2022 Influenza vaccination Influenza Vacc ine (#1) [facility] Start: 02-27-2022 Patient referral [facility] Work Phone: Start: 2021 RSV Immunization age d 60 or older (1 - 1-dose 60+ series) RSV Immunization aged 60 or older (1 - 1-dose 60+ series) [facility] Start: 2011 Zoster Vaccines (1 o f 2) Zoster Vaccines (1 of 2) [facility] Start: 1980 DTaP/Tdap/Td Vaccine s (1 - Tdap) DTaP/Tdap/Td Vaccines (1 - Tdap) [facility] Start: 1980 Hepatitis A Vaccines (1 of 2 - Risk 2-dose series) Hepatitis A Vaccines (1 of 2 - Risk 2-dose series) [facility] Start: 1979 Hepatitis C screening Hepatitis C Sc reening [facility] [facility] Start: 1973 Depression Screening Depression Scre ening [facility] Start: 1962 MMR Vaccines (1 of 1 - Standard series) MMR Vaccines (1 of 1 - Standard series) [facility] Start: 1960 COVID-19 Vaccine (#1) COVID-19 Vacci ne (#1) [facility] Start: 1960 HIV screening HIV Screening [facility] Start: 1960 Screening for malign ant neoplasm of colon [facility] End: 08-01-2023 Cardiac event monitor (30 days) [facility] Work Phone: Comment on above: Once for 1 Occurrenc es starting 08/01/2023 until 08/01/2023 Cardiac event recording [facility] Patient referral [facility] Work Phone: Radionuclide imaging of perfusion of myocardium under exercise stress [facility] Payers Date Payer Category Payer Self-pay [id number] 2022 Unknown [id number] 2022 Unknown ANTHEM BLUE CROS S ANTHEM BLUE CROSS [id number] 2022-Present [address] [place] [address] Commercial [id number] 1960 Unknown [id number] 1 Unknown [id number] Unknown [id number] 2 Unknown [id number] 2 Unknown [id number] 2 Social History Date Type Detail Facility Start: 02-27-2022 Tobacco smoking stat [place] [facility] Unknown if ever smoked [facility] Start: 1960 Sex Assigned At Male [facility] Start: 1960 Sex Assigned At Not on file [facility] Gender identity Not on file [facility] Start: 06-21-2023 [facility] Clinical Notes 06-18-2023 to 09-26-2023 Telephone Encounter - Sarika Grullon RN - 09/26/2023 9:15 AM EDTTelephone Encounter - Sarika Grullon RN - 09/26/2023 9:15 AM EDTTelephone Encounter - Caity Morales - 07/02/2023 3:28 PM EST Note Date & Type Note Facility 09-26-2023 Telephone encounter Note error [facility] 09-26-2023 Miscellaneous Notes error documented in this encounter [facility] 09-11-2023 Telephone encounter Note Left detailed message requesting a call back, to confirm that pt is following up with cardiology closer to home or if I can rs with our office [facility] 09-11-2023 Miscellaneous Notes Left detailed message requesting a call back, to confirm that pt is following up with cardiology closer to home or if I can rs with our office Lvm for pt to return call. Lvm for pt's significant other. Message left instructing pt and sig oth to call back to be scheduled with [facility] or a facility closer to home. I will mail the orders, instructions and contact information to the pt's address provided in the chart LVM instructing pt to call back to confirm location for Referred to the cryptogenic stroke program by neurology he was discharged home on 06/21/2023 and will need a 30-day event monitor and follow-up with Dr. Kaiser. He lives in [place] so not sure if he could do a mail out monitor if available. There is no mail out monitor so he will have to be scheduled here unless he wants to follow-up with cardiology closer to home documented in this encounter [facility] 07-18-2023 Telephone encounter Note Appt letter mailed to pt [facility] 07-18-2023 Miscellaneous Notes Appt letter mailed to pt Received return call from nurse Wanda phelps. She also has been unable to reach pt and has left multiple messages. In previous encounter letter was sent to contact office about scheduling. Keep this appt for EM and mail letter or cancel? Left detailed message for Wanda FELDMAN client care representative to return call. EM scheduled 08/01/23 at 10:00 [address]. Reviewed chart, looks like we have never seen pt. Dr Lopez done TANA. Pt was suppose to follow up with Dr Kaiser. Caity left messages for pt. No follow up ever scheduled. I rec'd a call from Rosibel Muñoz nurse welfare case worker. She called to follow up if pt had upcoming appt. She also said if office needs any assistance to call her at [phone], ext [phone]. documented in this encounter [facility] 07-18-2023 Telephone encounter Note Received return call from nurse Wanda phelps. She also has been unable to reach pt and has left multiple messages. In previous encounter letter was sent to contact office about scheduling. Keep this appt for EM and mail letter or cancel? [facility] 07-18-2023 Telephone encounter Note Left detailed message for Wanda RN client care representative to return call. EM scheduled 08/01/23 at 10:00 [address] [facility] 07-17-2023 Telephone encounter Note Reviewed chart, looks like we have never seen pt. Dr Lopez done TANA. Pt was suppose to follow up with Dr Kaiser. Caity left messages for pt. No follow up ever scheduled. [facility] 07-17-2023 Telephone encounter Note I rec'd a call from Rosibel Muñoz nurse welfare case worker. She called to follow up if pt had upcoming appt. She also said if office needs any assistance to call her at [phone], ext [phone]. [facility] 07-02-2023 Telephone encounter Note Lvm for pt to return call. Lvm for pt's significant other. Message left instructing pt and sig oth to call back to be scheduled with [facility] or a facility closer to home. I will mail the orders, instructions and contact information to the pt's address provided in the chart [facility] 07-02-2023 Miscellaneous Notes Lvm for pt to return call. Lvm for pt's significant other. Message left instructing pt and sig oth to call back to be scheduled with [facility] or a facility closer to home. I will mail the orders, instructions and contact information to the pt's address provided in the chart LVM instructing pt to call back to confirm location for Referred to the cryptogenic stroke program by neurology he was discharged home on 06/21/2023 and will need a 30-day event monitor and follow-up with Dr. Kaiser. He lives in [place] so not sure if he could do a mail out monitor if available. There is no mail out monitor so he will have to be scheduled here unless he wants to follow-up with cardiology closer to home documented in this encounter [facility] 06-22-2023 Telephone encounter Note LVM instructing pt to call back to confirm location for [facility] 06-21-2023 Telephone encounter Note Referred to the cryptogenic stroke program by neurology he was discharged home on 06/21/2023 and will need a 30-day event monitor and follow-up with Dr. Kaiser. He lives in [place] so not sure if he could do a mail out monitor if available. There is no mail out monitor so he will have to be scheduled here unless he wants to follow-up with cardiology closer to home [facility] 06-20-2023 Note Hospitalist Discharg e Summary Roney Small : 1960 Admit date: 06/18/2023 Discharge date: 06/20/2023 Admitting Physician: Stephie Collins MD Primary Care Physician: Tamy Hernandez Code Status: Full Code Discharge Diagnoses: Acute CVA status post TNK Left maxillary sinusitis Tobacco abuse Dyslipidemia Hospital Course: 63 yo M with PMHx tobacco abuse ( 6-8 cigarettes daily x 40 years), ETOH use (3 12oz beers daily) who presented to OSH 06/18 with acute onset of LUE/LLE weakness 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 NIH 3 (LUE/LLE weakness, +ataxia). Stroke team called. CTH with no acute intracranial abnormalities, but complete opacification of the left maxillary sinus with widening of the ostiomeatal unit. CTA with verena atherosclerotic plaque at the carotid bifurcation without significant narrowing and patent carotid and vertebral arteries. Pt given TNK at ~11:09am. Patient transferred and admitted to T2 ICU for further stroke w/u and management. NIH 1 on arrival to ICU for slight upward drift of LUE. MRI of the brain done and showed small infarct in the right frontal lobe. Patient also underwent TNAA and no acute abnormality noted. Seen by neurology and eduardo for discharge per recommended DAPT for 30 days and aspirin alone. Smoking cessation was advised. He will be continued onAugmentin to complete course. Consults: Neurology Discharge Instructions: Diet: Dietary Orders (From admission, onward) Start Ordered 06/20/23 0848 NPO diet with enteral medications Diet effective now Question: Medications? Answer: with enteral medications 06/20/23 0848 Activity: as tolerated Recommended Outpatient Tests: Disposition: Patient discharged in stable condition to Home. Greater than 31 minutes spent discharging the patient and coming up with patient discharge plan. Vitals: BP 143/83 Pulse 68 Temp 36.3 ?C (97.3 ?F) (Temporal) Resp 14 Ht 5' 9 (1.753 m) Wt 195 lb (88.5 kg) SpO2 95% BMI 28.80 kg/m? Pulse Ox: SpO2 Av.3 % Min: 95 % Max: 100 % Supplemental O2: Physical Exam Cardiovascular: Rate and Rhythm: Normal rate and regular rhythm. Pulmonary: Effort: Pulmonary effort is normal. Breath sounds: Normal breath sounds. Abdominal: Palpations: Abdomen is soft. Neurological: General: No focal deficit present. Mental Status: He is oriented to person, place, and time. Discharge Medications: Medication List START taking these medications amoxicillin-clavulanate 875-125 MG tablet Commonly known as: Augmentin Take 1 tablet by mouth in the morning and 1 tablet before bedtime. Do all this for 16 doses. Aspirin Low Dose 81 MG chewable tablet Generic drug: aspirin Chew 1 tablet (81 mg) daily. Start taking on: June 21, 2023 atorvastatin 40 MG tablet Commonly known as: Lipitor Take 1 tablet (40 mg) by mouth daily. Start taking on: June 21, 2023 clopidogrel 75 MG tablet Commonly known as: Plavix Take 1 tablet (75 mg) by mouth daily for 28 days. Start taking on: June 21, 2023 Where to Get Your Medications These medications were sent to [facility] [address] [place] [id number] Hours: Sunday to Sunday 10 am to 6 pm amoxicillin-clavulanate 875-125 MG tablet Aspirin Low Dose 81 MG chewable tablet atorvastatin 40 MG tablet clopidogrel 75 MG tablet Recommended Follow-up: Joel Zurita MD [address] [facility] [address] [facility] [address] Follow up in 1 week(s) Dr Gildardo Mukherjee [address] [facility], [address] Neurologist Call on 07/02/2023 Follow up from hospital stay at 09:00AM Tamy Hernandez [address] [facility] [address] Follow up on 06/21/2023 Follow up from hospital stay at 3:30 PM Complexity of Follow up: [] Moderate Complexity: follow up within 7-14 calendar days (16133) [x] Severe Complexity: follow up within 7 calendar days (93609) Follow up Testing, Pending results or Referrals at Transitional Care Visit: [x] yes [] no Instructions to MA: Please call patient on day after discharge (must document patient contacted within 2 business days of discharge). Follow up questions for MA: 1. Did you get medications filled and taking them as instructed from discharge? 2. Are you following your discharge instructions from your hospital stay? 3. Please confirm patient is scheduled for a follow up appointment within the above time frame. Signed: Patrick Tracy MD Division of Hospitalist Medicine Acute Care [facility] 06/20/2023, 2:09 PM [facility] 06-20-2023 Note Neurology recommende d patient to have a referral to the Cardio-embolic Cryptogenic Stroke Program (CCSP) for a 30 day event monitor. Discussed with he verbalized understanding. CCSP flyer given with instructions and contact phone number. [facility] 06-20-2023 Hospital course Narrative Images from the original note were not included. 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 NIH 3 (LUE/LLE weakness, +ataxia). Stroke team called. CTH with no acute intracranial abnormalities, but complete opacification of the left maxillary sinus with widening of the ostiomeatal unit. CTA with verena atherosclerotic plaque at the carotid bifurcation without significant narrowing and patent carotid and vertebral arteries. Pt given TNK at ~11:09am. Patient transferred and admitted to T2 ICU for further stroke w/u and management. NIH 1 on arrival to ICU for slight upward drift of LUE. MRI of the brain done and showed small infarct in the right frontal lobe. Patient also underwent TANA and no acute abnormality noted. Seen by neurology and eduardo for discharge per recommended DAPT for 30 days and aspirin alone. Smoking cessation was advised. He will be continued on Augmentin to complete course. Consults: Neurology Discharge Instructions: Diet: Dietary Orders (From admission, onward) Start Ordered 06/20/23 0848 NPO diet with enteral medications Diet effective now Question: Medications? Answer: with enteral medications 06/20/23 0848 Activity: as tolerated Recommended Outpatient Tests: Disposition: Patient discharged in stable condition to Home. Greater than 31 minutes spent discharging the patient and coming up with patient discharge plan. Vitals: BP 143/83 Pulse 68 Temp 36.3 C (97.3 F) (Temporal) Resp 14 Ht 5' 9 (1.753 m) Wt 195 lb (88.5 kg) SpO2 95% BMI 28.80 kg/m Pulse Ox: SpO2 Av.3 % Min: 95 % Max: 100 % Supplemental O2: Physical Exam Cardiovascular: Rate and Rhythm: Normal rate and regular rhythm. Pulmonary: Effort: Pulmonary effort is normal. Breath sounds: Normal breath sounds. Abdominal: Palpations: Abdomen is soft. Neurological: General: No focal deficit present. Mental Status: He is oriented to person, place, and time. Discharge Medications: Medication List START taking these medications amoxicillin-clavulanate 875-125 MG tablet Commonly known as: Augmentin Take 1 tablet by mouth in the morning and 1 tablet before bedtime. Do all this for 16 doses. Aspirin Low Dose 81 MG chewable tablet Generic drug: aspirin Chew 1 tablet (81 mg) daily. Start taking on: June 21, 2023 atorvastatin 40 MG tablet Commonly known as: Lipitor Take 1 tablet (40 mg) by mouth daily. Start taking on: June 21, 2023 clopidogrel 75 MG tablet Commonly known as: Plavix Take 1 tablet (75 mg) by mouth daily for 28 days. Start taking on: June 21, 2023 Where to Get Your Medications These medications were sent to [facility] [address] [place], [place] [id number] Hours: Sunday to Sunday 10 am to 6 pm amoxicillin-clavulanate 875-125 MG tablet Aspirin Low Dose 81 MG chewable tablet atorvastatin 40 MG tablet clopidogrel 75 MG tablet Recommended Follow-up: Joel Zurita MD [address] [facility] [address] [facility] [address] Follow up in 1 week(s) Dr Gildardo Mukherjee [address] [place] [address], [address] Neurologist Call on 07/02/2023 Follow up from hospital stay at 09:00AM Tamy Hernandez [address] [facility] [address] Follow up on 06/21/2023 Follow up from hospital stay at 3:30 PM Complexity of Follow up: [] Moderate Complexity: follow up within 7-14 calendar days (23305) [x] Severe Complexity: follow up within 7 calendar days (50285) Follow up Testing, Pending results or Referrals at Transitional Care Visit: [x] yes [] no Instructions to MA: Please call patient on day after discharge (must document patient contacted within 2 business days of discharge). Follow up questions for MA: 1. Did you get medications filled and taking them as instructed from discharge? 2. Are you following your discharge instructions from your hospital stay? 3. Please confirm patient is scheduled for a follow up appointment within the above time frame. Signed: Patrick Tracy MD Division of Hospitalist Medicine Acute [facility] 06/20/2023, 2:09 PM documented in this encounter [facility] 06-20-2023 Note Formatting of this n ote might be different from the original. Neurology recommended patient to have a referral to the Cardio-embolic Cryptogenic Stroke Program (CCSP) for a 30 day event monitor. Discussed with he verbalized understanding. CCSP flyer given with instructions and contact phone number. [facility] 06-20-2023 Note Formatting of this n ote might be different from the original. Neurology recommended patient to have a referral to the Cardio-embolic Cryptogenic Stroke Program (CCSP) for a 30 day event monitor. Discussed with he verbalized understanding. CCSP flyer given with instructions and contact phone number. [facility] 06-20-2023 Miscellaneous Notes Neurology recommended patient to have a referral to the Cardio-embolic Cryptogenic Stroke Program (CCSP) for a 30 day event monitor. Discussed with he verbalized understanding. CCSP flyer given with instructions and contact phone number. Called PCP office left second message awaiting callback. Left message at [facility] to see if they offer Sleep medicine as well. Tcc met with neuro and dr massiel JACKSON for discharge- he is to do orders today - no needs . Problem: Knowledge Deficit Goal: Patient/family/caregiver demonstrates understanding of disease process, treatment plan, medications, and discharge instructions Outcome: Progressing Problem: Potential for Compromised Skin Integrity Goal: Skin Integrity is Maintained or Improved Outcome: Progressing Goal: Nutritional status is improving Outcome: Progressing Problem: Urinary Incontinence Goal: Perineal skin integrity is maintained or improved Outcome: Progressing Met with patient ok to schedule PCP follow up requests 4 PM if possible. Will send Neurology referral to [facility] to keep follow up closer to home. Will give [facility] Neurology info just in case [facility] unable to schedule. Called Dr Hernandez office only able to leave a message. Images from the original note were not included. Care Management Progress Note Transfer from T2- neuro work up- need final recs- has pcp - script coverage and transport home- wants to cont to work- PT eval pending- PO AB for sinusitis- home today vs 24 . Discharge Milestones and Delays Expected Date/Time: 06/21/[address] discharge order Complete med reconciliation Case mgmt discharge readiness Clinical Stability Diagnsotic Workup Expected Discharge History Expected Date/Time Set By Reviewed At 06/21/2023 Almaz De La Garza RN 06/20/2023 8:48 AM 06/28/2023 Narda Merlos RN 06/19/2023 7:58 AM 06/28/2023 Josee Menjivar APRN - [place] 06/18/2023 1:38 PM Length of Stay (Days): 2 GMLOS: No GMLOS Documented Patients PCP office is located in [facility]. They do have Neurology in same building however it is scheduling into January for new patients. Moses try to find closer follow up. Care Managment Initial Assessment Date: 06/19/2023 Patient Name: Roney Small : 1960 Patient Information Source of Information: Patient, Patient Content Manager Name/Contact Information: Emilee Doll Significant Other [phone] Cognition/Language: WFL - Within Functional Limits Permission given to speak with patient security representative/caregiver as indicated: Yes Confirmation of Payer with patient/family: Yes Payer Name: [employer] [place]: No Confirmation of Primary Care Physician: Confirmed PCP Name: Tamy Hernandez Seen in last 2 years?: Yes Primary Caregiver: Self If assistance needed, confirmed caregiver ready, willing and able to care for patient at discharge: Confirmed with: Living Arrangements Current Residence: House Number of Floors 1 Number of Entry Steps: 2 Bed/Bath Levels: Both first floor Facility: Facility Name: Plan to Return: Lives with: Spouse/significant other Support Systems: Spouse/significant other, Family members, Friends/neighbors Activities of Daily Living Ambulation: Independent Bathing/Dressing: Independent Elimination/Continence/Toileting : Independent Feeding: Independent Who Assists with Activities of Daily Living: Instrumental Activities of Daily Living Prescription Coverage: Yes Pharmacy Used: [facility] [address] [place] [address] - [address] [place] [address] Medication Management: Independent Transportation/Shopping: Independent Transportation Mode: Car Needs Assistance with Transportation at Discharge: No Meal Preparation: Independent Laundry/Cleaning: Independent Finances/Bill Paying: Independent Communication: Independent Types of Care Services/Equipment Utilized Care Services: Dialysis Type: NA Durable Medical Equipment: Patient's Goal/Discharge Plan Patient expects to be discharged to: Home Discharge Planning Actions: Continue to follow Patient's Choice Rights and [employer] and Collaborative Relationships Disclosed as Indicated for Post-Acute Care: Interdisciplinary Team Engagement: PT/OT Social Work Referral for: Additional Information: Chart reviewed. Patient admitted to [facility] ICU for acute ischemic stroke s/p TNK 06/18/2023. Consults to IP CONSULT TO CASE MANAGEMENT IP CONSULT TO NEUROLOGY Initial Assessment: PPE worn. Spoke with patient and girlfriend at bedside. Introduced myself and role as TCC. IA complete. Patient personal information confirmed. Patient from home with s/o, independent, employed, and drives. Patient has insurance, PCP and prescription coverage. Discussed discharge planning. Patient works-- would be barrier to HHC. Patient would prefer to not go to [facility] unless absolutely necessary. Discharge Planning Barrier: PT/OT pending. Discharge Plan: Home. Awaiting PT/OT eval, clinical stability and medical clearance. Will continue to follow. Narda Merlos RN Problem: Knowledge Deficit Goal: Patient/family/caregiver demonstrates understanding of disease process, treatment plan, medications, and discharge instructions Outcome: Progressing Problem: Potential for Compromised Skin Integrity Goal: Skin Integrity is Maintained or Improved Outcome: Progressing Problem: Urinary Incontinence Goal: Perineal skin integrity is maintained or improved Outcome: Progressing The patient is Moderately Stable - Low risk of patient condition declining or worsening The patient's goals for the shift include The clinical goals for the shift include Over the shift, the patient did not make progress toward the following goals. Barriers to progression include bed rest order. Recommendations to address these barriers include time patient needs bedrest for 24 hours. documented in this encounter [facility] 06-20-2023 Note PROGRESS NOTE. CAROLA Clarke SERVICE Patient Name:Roney Small Patient : 1960 Acct: [id number] Date of Admission: 06/18/2023 Room[facility]: [facility] A PCP: Tamy Hernandez Patient location ICU Remains in the hospital due to persistent unresolved acute issues, Chief complaint: L arm weakness New Complain: No documented events overnight. SBP have been at goal. TANA completed this morning. Upon seeing him this morning he was looking good. Denies any complaints today. Exam unchanged. Sedation:No Diet/TF:regular Lipscomb: No VTE prophylaxis: YES SCDs Antithrombotic therapy in first 24 hrs: YES TNK Statin therapy for stroke stroke patients: High intensity Anticoagulation on AF patients: N/A no history of AF Activity: PT/OT after 24 hours Disposition: likely home Current Hospital Medications: Current Facility-Administered Medications: acetaminophen (Tylenol) tablet 650 mg, 650 mg, Oral, q6h PRN OR acetaminophen (Tylenol) suppository 650 mg, 650 mg, Rectal, q6h PRN, Josee Acierno, BUSINESS RISK CONSULTANT - MANAGING DIRECTOR amoxicillin-clavulanate (Augmentin) 875-125 MG per tablet 1 tablet, 875 mg, Oral, 2 times per day, Josee Acierno, BUSINESS RISK CONSULTANT - MANAGING DIRECTOR, 1 tablet at 06/20/23 0804 aspirin chewable tablet 81 mg, 81 mg, Oral, Daily, Josee Acierno, BUSINESS RISK CONSULTANT - MANAGING DIRECTOR, 81 mg at 06/20/23 0804 atorvastatin (Lipitor) tablet 40 mg, 40 mg, Oral, Daily, Josee Acierno, BUSINESS RISK CONSULTANT - MANAGING DIRECTOR, 40 mg at 06/20/23 0804 bisacodyl (Dulcolax) suppository 10 mg, 10 mg, Rectal, Daily PRN, Josee Acierno, BUSINESS RISK CONSULTANT - MANAGING DIRECTOR clopidogrel (Plavix) tablet 75 mg, 75 mg, Oral, Daily, Josee Acierno, BUSINESS RISK CONSULTANT - MANAGING DIRECTOR, 75 mg at 06/20/23 0804 enoxaparin (Lovenox) syringe 40 mg, 40 mg, SubCUTAneous, q24h, Josee Acierno, BUSINESS RISK CONSULTANT - MANAGING DIRECTOR, 40 mg at 06/19/23 1725 folic acid (Folvite) tablet 1 mg, 1 mg, Oral, Daily, Josee Acierno, BUSINESS RISK CONSULTANT - MANAGING DIRECTOR, 1 mg at 06/20/23 0804 hydrALAZINE (Apresoline) injection 10 mg, 10 mg, IntraVENous, q1h PRN, Josee Acierno, BUSINESS RISK CONSULTANT - MANAGING DIRECTOR ipratropium-albuterol (Duo-Neb) 0.5-2.5 mg/3 mL nebulizer solution 3 mL, 3 mL, Nebulization, q4h PRN, Josee Acierno, BUSINESS RISK CONSULTANT - MANAGING DIRECTOR labetalol (Normodyne,Trandate) injection 10 mg, 10 mg, IntraVENous, q10 min PRN, Josee Acierno, BUSINESS RISK CONSULTANT - MANAGING DIRECTOR ondansetron ODT (Zofran-ODT) disintegrating tablet 4 mg, 4 mg, Oral, q8h PRN OR ondansetron (Zofran) injection 4 mg, 4 mg, IntraVENous, q6h PRN, Josee Acierno, BUSINESS RISK CONSULTANT - MANAGING DIRECTOR polyethylene glycol (PEG) 3350 (Miralax) packet 17 g, 17 g, Oral, Daily PRN, Josee Acierno, BUSINESS RISK CONSULTANT - MANAGING DIRECTOR sodium chloride 0.9 % infusion, 75 mL/hr, IntraVENous, Continuous, Josee Acierno, BUSINESS RISK CONSULTANT - MANAGING DIRECTOR, Stopped at 06/20/23 1031 sodium chloride 0.9% (NS) flush 5-40 mL, 5-40 mL, IntraVENous, q12h, Josee Acierno, BUSINESS RISK CONSULTANT - MANAGING DIRECTOR, 5 mL at 06/20/23 0145 sodium chloride 0.9% (NS) flush 5-40 mL, 5-40 mL, IntraVENous, PRN, Josee Acierno, BUSINESS RISK CONSULTANT - MANAGING DIRECTOR thiamine (Vitamin B1) tablet 100 mg, 100 mg, Oral, Daily, Josee Acierno, BUSINESS RISK CONSULTANT - MANAGING DIRECTOR, 100 mg at 06/20/23 0804 Continuous Infusions: sodium chloride, 75 mL/hr, Last Rate: Stopped (06/20/23 1031) Allergies: Patient has no known allergies. Review of Systems Unable to perform ROS: Acuity of condition Objective: Telemetry: Arrhythmia:No Physical Examination: Patient Vitals for the past 8 hrs: BP Temp Temp src Pulse Resp SpO2 Height Weight 06/20/23 1115 143/83 -- -- 68 14 -- -- -- 06/20/23 1100 132/86 -- -- 78 12 -- -- -- 06/20/23 1050 -- -- -- -- -- -- 1.753 m (5' 9) 88.5 kg (195 lb) 06/20/23 1045 148/79 36.3 ?C (97.3 ?F) Temporal 86 12 95 % -- -- 06/20/23 1033 (!) 188/91 36 ?C (96.8 ?F) -- 88 20 97 % -- -- 06/20/23 1030 -- -- -- 92 -- -- -- -- 06/20/23 1015 -- -- -- 96 -- -- -- -- 06/20/23 1002 158/90 -- -- 75 (!) 10 100 % -- -- 06/20/23 1000 -- -- -- 76 -- -- -- -- 06/20/23 0554 153/88 36.2 ?C (97.1 ?F) Temporal 82 18 98 % -- -- I/O last 3 completed shifts: In: 2645 [P.O.:800; I.V.:1845] Out: 1450 [Urine:1450] General Physical Examination: General:male HEENT:Normocephalic, atraumaticl CV: S1+S2, RRR, no MRG. Pulm:CTA b/l, unlabored Abdomen: Soft NT/ND. BS + Skin: Intact without ulcers, breakdowns or discoloration Extremities: normal with no edema or cyanosis Orthopedic limitation; N/A Pulses: Intact peripherally Carotid auscultation :No bruits Neurological Examination: Higher Functions: Mental Status Exam: Level of Alertness:Awake Orientation: Normal toself, time, place Memory: Normal Fund of Knowledge: Normal Language: Normal Dysarthria not present Cranial Nerves: -II Visual acuity: normal -II Visualfields: normal -III Pupils (~ 3 mm OD, 3 mm OU) equal, round, reactive to light -III-IV- Extraocular Movements: intact -Nystagmus not present -Saccades and pursuits normal -V Facial sensation: intact Corneal's Intact bilateral -VII Facial strength:intact -VIII Hearing: intact -IX-X - Gag reflex present -X Palate: intact -XI Shoulder shrug: intact -XII Tongue movement: not participant MotorExaminat (more content not included)... [facility] 06-20-2023 Note Formatting of this n ote might be different from the original. Called PCP office left second message awaiting callback. Left message at [facility] to see if [facility] well[facility] Note Formatting of this n ote might be different from the original. Called PCP office left second message awaiting callback. Left message at [facility] to see if they offer Sleep medicine as well. [facility] 06-20-2023 Note Patient: Roney turcios Procedure Summary Date: 06/20/23 Room / Location: [facility] Cath/EP Lab Anesthesia Start: 1001 Anesthesia Stop: 103 Procedure: TRANSESOPHAGEAL ECHOCARDIOGRAM (CONTRAST/3D PRN) Diagnosis: Acute left arterial ischemic stroke, ICA (internal carotid artery) (HCC) Scheduled Providers: Dejah Lopez MD Responsible Provider: Joel Reed MD Anesthesia Type: TIVA ASA Status: 2 Anesthesia Type: TIVA Vitals Value Taken Time BP 188/91 06/20/23 1033 Temp 36 ?C (96.8 ?F) 06/20/23 1033 Pulse 88 06/20/23 1033 Resp 20 06/20/23 1033 SpO2 97 % 06/20/23 1033 Vitals shown include unfiled device data. Anesthesia Post Evaluation Patient location during evaluation: PACU Patient participation: complete - patient participated Level of consciousness: awake and alert Pain management: satisfactory to patient Airway patency: patent Dental Injury: no Cardiovascular status: acceptable, blood pressure returned to baseline and hemodynamically stable Respiratory status: acceptable and spontaneous ventilation Hydration status: euvolemic Nausea/Vomiting: controlled No notable events documented. Patient can be discharged once all PACU criteria has been met. [facility] 06-20-2023 Note Patient: Roney turcios Procedure Summary Date: 06/20/23 Room / Location: [facility] Cath/EP Lab Anesthesia Start: 1000 Anesthesia Stop: 1031 Procedure: TRANSESOPHAGEAL ECHOCARDIOGRAM (CONTRAST/3D PRN) Diagnosis: Acute left arterial ischemic stroke, ICA (internal carotid artery) (HCC) Scheduled Providers: Dejah Lopez MD Responsible Provider: Joel Reed MD Anesthesia Type: TIVA ASA Status: 2 Anesthesia Type: TIVA Vitals Value Taken Time BP 188/91 06/20/23 1033 Temp 36 ?C (96.8 ?F) 06/20/23 1033 Pulse 88 06/20/23 1033 Resp 20 06/20/23 1033 SpO2 97 % 06/20/23 1033 Anesthesia Post Evaluation Patient location during evaluation: PACU Patient participation: complete - patient participated Level of consciousness: awake and alert Pain management: satisfactory to patient Multimodal analgesia pain management approach Airway patency: patent Two or more strategies used to mitigate risk of obstructive sleep apnea Cardiovascular status: acceptable and hemodynamically stable Respiratory status: acceptable and spontaneous ventilation Hydration status: acceptable No notable events documented. MIPS #[id number] PONV Patient did not receive an inhalational anesthetic ([id number]) MIPS # 424 Perioperative Temperature Management Anesthesia time was less than 60 minutes (4256F) MIPS #477 Multimodal Pain Management Emergent case Exlusion- Stop here ([id number]) MIPS #404 Anesthesiology Smoking Abstinence The patient is a current smoker (G9642) (e.g. cigarette, cigar, pipe, e-cigarette/vaping/marijuana) The patient underwent an elective surgery or procedure requiring anesthesia (G9643) The patient did not receive preop smoking cessation instructions prior to the day of surgery or procedure by , ALEJANDRA interactive art director proxy staff ([id number]) I completed my handoff to the receiving clinician during which we: 1. Identified the patient 2. Identified the responsible provider 3. Reviewed the pertinent medical history 4. Discussed the surgical course 5. Reviewed intra-op anesthesia management and issues during anesthesia 6. Set expectations for post-procedure period 7. Allowed opportunity for questions and acknowledgement of understanding. [facility] 06-20-2023 Note Formatting of this n ote might be different from the original. Tcc met with neuro and dr massiel JACKSON for discharge- he is to do orders today - no needs . [facility] 06-20-2023 Note Formatting of this n ote might be different from the original. [facility] met with megan and dr massiel JACKSON for discharge- he is to do orders today - no needs . [facility] 06-20-2023 Note Patient: Roney turcios Procedure Information Date/Time: 06/20/23 1000 Scheduled providers: Dejah Lopez MD Procedure: TRANSESOPHAGEAL ECHOCARDIOGRAM (CONTRAST/3D PRN) Location: [facility] Cath/EP Lab Relevant Problems Neuro/Psych (+) Stroke of unknown cause (HCC) Past Medical History: No past medical history on file. Past Surgical History: No past surgical history on file. Social History: TOBACCO: has no history on file for tobacco use. ETOH: has no history on file for alcohol use. Social History Substance and Sexual Activity Drug Use Not on file Family History: No family history on file. Screening: unknown Clinical information reviewed: Allergies Physical Exam Airway Mallampati: II TM distance: <3 FB Neck ROM: full Mouth Open: normal Cardiovascular Dental dentition normal Pulmonary Abdominal Anesthesia Plan patient is NPO appropriate Any family history or previous problems with anesthesia no ASA 2 TIVA Any family history or previous problems with anesthesia no The patient is a current smoker. Patient was not previously instructed to abstain from smoking on day of procedure. Patient did not smoke on day of procedure. Anesthetic plan and risks discussed with patient. [facility] Screening Labs: Lab Results Component Value Date WBC 6.4 06/20/2023 HGB 15.2 06/20/2023 HCT 44.5 06/20/2023 MCV 92.3 06/20/2023 PLT 207 06/20/2023 Lab Results Component Value Date NA 136 06/20/2023 K 4.1 06/20/2023 CL 108 (H) 06/20/2023 CO2 20 (L) 06/20/2023 BUN 13 06/20/2023 CREATININE 0.69 06/20/2023 GLUCOSE 99 06/20/2023 CALCIUM 8.6 06/20/2023 PROT 7.2 06/20/2023 ALKPHOS 86 06/20/2023 AST 28 06/20/2023 ALT 20 06/20/2023 EGFR >90.0 06/20/2023 Pain Score: 0 - No pain Transthoracic echocardiogram (TTE) complete with contrast, bubble, strain, and 3D PRN Result Date: 06/19/2023 ? Left?Ventricle: Left ventricle is smaller than normal. Mildly increased wall thickness. Hyperdynamic left ventricular systolic function. EF by 2D Simpsons Biplane is 71%. Normal wall motion. ? Right?Ventricle: Right ventricle size is normal. Normal systolic function. ? Interatrial?Septum: No interatrial shunt visualized on color Doppler. Agitated saline study was negative with and without provocation. ? Right?Atrium: Right atrium is mildly dilated. 06/18/23 ECG 12-LEAD 06/19/2023 5:11 PM (Final) Impression Sinus rhythm Probable left atrial enlargement RBBB and LAFB Electronically Signed On 06-19-2023 17:11:36 EST by Dejah Lopez Signed by: Dejah Lopez MD on 06/19/2023 5:11 PM [facility] 06-20-2023 Note PHYSICAL THERAPY [facility] Initial Evaluation Name/MRN: Roney Small ([id number]) Evaluation Date: 06/20/2023 Date of : 1960 Admission Date: 06/18/2023 1:33 PM Age: 63 y.o. Room/Bed: [facility] A Discharge Recommendation: Home with assist PRN Equipment Needed: No Assessment IMPRESSION: Admitted stroke. Bed mobility completed independently no use of bed rails, HOB flat. Sit < stand EOB independent no device no cues required. Ambulated 550ft independently no device. Ascended and descended 4 steps unilateral hand rail independent. Stand < sit recliner independent no device. Informed nurse patient is safe to ambulate halls independently at this time. At this time PT services DC based on patients functional mobility. Recommend home with assist PRN. Diagnosis: stroke Prognosis: good Performance Deficits /Impairments: N/A Decision Making: Low Complexity Subjective Presented in bed, excited to get up. RN cleared for therapy. Pain: Pt denies any current pain. Past Medical History: No past medical history on file. Past Surgical History: No past surgical history on file. Admission Diagnosis: Patient Active Problem List Diagnosis Date Noted Stroke of unknown cause (HCC) 06/18/2023 Medical Precautions: No active isolations Proper PPE donned/doffed in accordance with facility standards. Fall Risk: Ladd Fall Risk Score: 35 (Medium Risk) Precautions/Restrictions: Lines/Drains/Airways: PIV Skin care precautions Family/Caregiver Present: none Overall Cognitive Status: WNL Overall Orientation Status: Oriented x4 Vision: wears glasses for reading and and are NOT being used during the eval Hearing: normal Social/Functional History Patient admitted from home. Lives With: Significant Other Type of Home: single family home Home Layout: Single Level Home Home Access: Stairs to Enter without Rails (# of stairs: 2) Bathroom Shower/Tub: Toilet: Standard Home Equipment: crutches Homemaking Responsibilities: Independent Receives Help From: Significant other Active Environmental Marketing Representative: Yes Prior Level of Function ADL Assistance: Independent Ambulation Assistance: Independent Transfer Assistance: Independent Objective Lower Extremity Assessment AROM: WNL PROM: WNL Strength: WNL grossly 3+/5 based on functional mobility Bed Mobility: Supine to sit: Independent Scooting: Independent No use of rails, HOB flat Transfers Sit to stand: Independent Stand to sit: Independent No device, no cues required Ambulation Ambulation 1 Assistive device(s) used: none Assist level: Independent Distance (ft): 550 Quality of gait: No gait deviations Stairs Stairs 1 Assistive device(s) used: none Assist level: Independent # of steps: 4 Rails: left Additional factors: reciprocal going up, reciprocal going down Outcome Measures AM-PAC How much HELP from another person do you currently need Turning from your back to your side while in a flat bed without using bedrails?: None Moving from lying on your back to sitting on the side of a flat bed without using bedrails?: None Moving to and from a bed to a chair (including a wheelchair)?: None Standing up from a chair using your arms (wheelchair or bedside chair)?: None Walking in a hospital room?: None Stair climbing assessed?: Yes Climbing 3-5 steps with a railing?+: None AM-PAC Inpatient Mobility Raw Score : 24 AM-PAC Inpatient Mobility Raw Score (No Stairs) : 20 [facility] Score: Walked 250 ft or more (i.e. several laps on unit) Plan No skilled acute PT indicated at this time. Please reconsult should changes occur. Safety/Education Safety Safety Devices in place: call light within reach, left in chair, gait belt, nurse notified, and no alarms engaged upon entry Restraints: No Education Education Given To: patient Education Provided: PT Role, Discharge Recommendations, and Benefits of Increasing Activity Education Method: Verbal Barriers to Learning: None Education Outcome: Verbalized Understanding Goals Patient Stated Goal: to go home Therapy Time Individual Co-treatment Time In 0900 Time Out 0913 Minutes 13 This provider wore appropriate PPE throughout session per facility guidelines. Helene Fry, SPT Patient's Physical Therapy Plan of Care supervision is transferred to a [facility] Services Physical Therapist. Goals and/or treatment plan was established in collaboration with patient/family/other representatives. [facility] 06-20-2023 Plan of care note Problem: Knowledge Deficit Goal: Patient/family/caregiver demonstrates understanding of disease process, treatment plan, medications, and discharge instructions Outcome: Progressing Problem: Potential for Compromised Skin Integrity Goal: Skin Integrity is Maintained or Improved Outcome: Progressing Goal: Nutritional status is improving Outcome: Progressing Problem: Urinary Incontinence Goal: Perineal skin integrity is maintained or improved Outcome: Progressing [facility] 06-20-2023 History of Presen t illness Narrative PROGRESS NOTE. STROKE SERVICE Patient Name:Roney Small Patient : 1960 Acct: [id number] Date of Admission: 06/18/2023 Room/Bed: [facility] A PCP: Tamy Hernandez Patient location ICU Remains in the hospital due to persistent unresolved acute issues, Chief complaint: L arm weakness New Complain: No documented events overnight. SBP have been at goal. TANA completed this morning. Upon seeing him this morning he was looking good. Denies any complaints today. Exam unchanged. Sedation:No Diet/TF:regular Lipscomb: No VTE prophylaxis: YES SCDs Antithrombotic therapy in first 24 hrs: YES TNK Statin therapy for stroke stroke patients: High intensity Anticoagulation on AF patients: N/A no history of AF Activity: PT/OT after 24 hours Disposition: likely home Current Hospital Medications: Current Facility-Administered Medications: acetaminophen (Tylenol) tablet 650 mg, 650 mg, Oral, q6h PRN OR acetaminophen (Tylenol) suppository 650 mg, 650 mg, Rectal, q6h PRN, Josee Acierno, BUSINESS RISK CONSULTANT - MANAGING DIRECTOR amoxicillin-clavulanate (Augmentin) 875-125 MG per tablet 1 tablet, 875 mg, Oral, 2 times per day, Josee Acierno, BUSINESS RISK CONSULTANT - MANAGING DIRECTOR, 1 tablet at 06/20/23 0804 aspirin chewable tablet 81 mg, 81 mg, Oral, Daily, Josee Acierno, BUSINESS RISK CONSULTANT - MANAGING DIRECTOR, 81 mg at 06/20/23 0804 atorvastatin (Lipitor) tablet 40 mg, 40 mg, Oral, Daily, Josee Acierno, BUSINESS RISK CONSULTANT - MANAGING DIRECTOR, 40 mg at 06/20/23 0804 bisacodyl (Dulcolax) suppository 10 mg, 10 mg, Rectal, Daily PRN, Josee Acierno, BUSINESS RISK CONSULTANT - MANAGING DIRECTOR clopidogrel (Plavix) tablet 75 mg, 75 mg, Oral, Daily, Josee Acierno, BUSINESS RISK CONSULTANT - MANAGING DIRECTOR, 75 mg at 06/20/23 0804 enoxaparin (Lovenox) syringe 40 mg, 40 mg, SubCUTAneous, q24h, Josee Acierno, BUSINESS RISK CONSULTANT - MANAGING DIRECTOR, 40 mg at 06/19/23 1725 folic acid (Folvite) tablet 1 mg, 1 mg, Oral, Daily, Josee Acierno, BUSINESS RISK CONSULTANT - MANAGING DIRECTOR, 1 mg at 06/20/23 0804 hydrALAZINE (Apresoline) injection 10 mg, 10 mg, IntraVENous, q1h PRN, Josee Acierno, BUSINESS RISK CONSULTANT - MANAGING DIRECTOR ipratropium-albuterol (Duo-Neb) 0.5-2.5 mg/3 mL nebulizer solution 3 mL, 3 mL, Nebulization, q4h PRN, Josee Acierno, BUSINESS RISK CONSULTANT - MANAGING DIRECTOR labetalol (Normodyne,Trandate) injection 10 mg, 10 mg, IntraVENous, q10 min PRN, Josee Acierno, BUSINESS RISK CONSULTANT - MANAGING DIRECTOR ondansetron ODT (Zofran-ODT) disintegrating tablet 4 mg, 4 mg, Oral, q8h PRN OR ondansetron (Zofran) injection 4 mg, 4 mg, IntraVENous, q6h PRN, Josee Acierno, BUSINESS RISK CONSULTANT - MANAGING DIRECTOR polyethylene glycol (PEG) 3350 (Miralax) packet 17 g, 17 g, Oral, Daily PRN, Josee Acierno, BUSINESS RISK CONSULTANT - MANAGING DIRECTOR sodium chloride 0.9 % infusion, 75 mL/hr, IntraVENous, Continuous, Josee Acierno, BUSINESS RISK CONSULTANT - MANAGING DIRECTOR, Stopped at 06/20/23 1031 sodium chloride 0.9% (NS) flush 5-40 mL, 5-40 mL, IntraVENous, q12h, Josee Acierno, BUSINESS RISK CONSULTANT - MANAGING DIRECTOR, 5 mL at 06/20/23 0145 sodium chloride 0.9% (NS) flush 5-40 mL, 5-40 mL, IntraVENous, PRN, ROOPA Harris CNP thiamine (Vitamin B1) tablet 100 mg, 100 mg, Oral, Daily, Josee SenROOPA sewell - MANAGING DIRECTOR, 100 mg at 06/20/23 0804 Continuous Infusions: sodium chloride, 75 mL/hr, Last Rate: Stopped (06/20/23 1031) Allergies: Patient has no known allergies. Review of Systems Unable to perform ROS: Acuity of condition Objective: Telemetry: Arrhythmia:No Physical Examination: Patient Vitals for the past 8 hrs: BP Temp Temp src Pulse Resp SpO2 Height Weight 06/20/23 1115 143/83 -- -- 68 14 -- -- -- 06/20/23 1100 132/86 -- -- 78 12 -- -- -- 06/20/23 1050 -- -- -- -- -- -- 1.753 m (5' 9) 88.5 kg (195 lb) 06/20/23 1045 148/79 36.3 C (97.3 F) Temporal 86 12 95 % -- -- 06/20/23 1033 (!) 188/91 36 C (96.8 F) -- 88 20 97 % -- -- 06/20/23 1030 -- -- -- 92 -- -- -- -- 06/20/23 1015 -- -- -- 96 -- -- -- -- 06/20/23 1002 158/90 -- -- 75 (!) 10 100 % -- -- 06/20/23 1000 -- -- -- 76 -- -- -- -- 06/20/23 0554 153/88 36.2 C (97.1 F) Temporal 82 18 98 % -- -- I/O last 3 completed shifts: In: 2645 [P.O.:800; I.V.:1845] Out: 1450 [Urine:1450] General Physical Examination: General:male HEENT:Normocephalic, atraumaticl CV: S1+S2, RRR, no MRG. Pulm:CTA b/l, unlabored Abdomen: Soft NT/ND. BS + Skin: Intact without ulcers, breakdowns or discoloration Extremities: normal with no edema or cyanosis Orthopedic limitation; N/A Pulses: Intact peripherally Carotid auscultation :No bruits Neurological Examination: Higher Functions: Mental Status Exam: Level of Alertness:Awake Orientation: Normal toself, time, place Memory: Normal Fund of Knowledge: Normal Language: Normal Dysarthria not present Cranial Nerves: -II Visual acuity: normal -II Visualfields: normal -III Pupils (~ 3 mm OD, 3 mm OU) equal, round, reactive to light -III-IV- Extraocular Movements: intact -Nystagmus not present -Saccades and pursuits normal -V Facial sensation: intact Corneal's Intact bilateral -VII Facial strength:intact -VIII Hearing: intact -IX-X - Gag reflex present -X Palate: intact -XI Shoulder shrug: intact -XII Tongue movement: not participant MotorExamination: Tone after evaluation of 4 limbs, the following findings applied: Normal all limbs -Bulk: normal -Muscle Stretch afterevaluation of all limbs, and axial musculature the following findings applied: Drift: absent L hand pronation mild -Reflexes: after evaluation of 4 limbs, the following findings applied ; normal all limbs -Plantar responce: Flexor bilaterally Sensory Intact to light touch, pain / temperature, proprioception, Coordination: Arms Normal finger to nose Legs Intact heel knee monge testing Tremors not present Gait abnormal, patient unable to walk due to acute circumstances / bed rest / safety concerns NIHSS: 0 ANCILLARY Last 24hrs Recent Results (from the past 24 hour(s)) Comprehensive metabolic panel Collection Time: 06/20/23 6:11 AM Result Value Ref Range SODIUM 136 135 - 145 mmol/L POTASSIUM 4.1 3.5 - 5.1 mmol/L CHLORIDE 108 (H) 98 - 107 mmol/L CARBON DIOXIDE 20 (L) 22 - 30 mmol/L ANION GAP 8 3 - 13 mmol/L UREA NITROGEN 13 9 - 20 mg/dL CREATININE 0.69 0.66 - 1.25 mg/dL GLUCOSE 99 70 - 100 mg/dL CALCIUM 8.6 8.4 - 10.4 mg/dL AST (SGOT) 28 15 - 46 U/L ALT 20 0 - 49 U/L ALKALINE PHOSPHATASE 86 38 - 126 U/L ALBUMIN 3.9 3.5 - 5.0 g/dL BILIRUBIN, TOTAL 0.8 0.2 - 1.3 mg/dL TOTAL PROTEIN 7.2 6.3 - 8.2 g/dL eGFR >90.0 >60.0 mL/min/1.73m*2 CBC auto differential Collection Time: 06/20/23 6:11 AM Result Value Ref Range Auto WBC 6.4 3.6 - 10.7 10*3/uL RBC 4.82 4.40 - 5.90 10*6/uL Hemoglobin 15.2 13.0 - 18.0 g/dL Hematocrit 44.5 40.0 - 52.0 % MCV 92.3 80.0 - 98.0 fL MCH 31.6 26.0 - 34.0 pg MCHC 34.3 32.0 - 36.0 % RDW 12.3 11.5 - 14.5 % Platelets 207 140 - 440 10*3/uL MPV 7.6 7.4 - 12.4 fL nRBC 0.1 0.0 - 2.0 /100 WBCs Neutrophils Relative 55.6 40.0 - 80.0 % Lymphocytes Relative 26.5 20.0 - 40.0 % Monocytes Relative 10.8 (H) 2.0 - 10.0 % Eosinophils Relative 6.6 (H) 1.0 - 6.0 % Basophils Relative 0.5 0.0 - 2.0 % Neutrophils Absolute 3.6 1.8 - 7.0 10*3/uL Lymphocytes Absolute 1.7 1.0 - 4.3 10*3/uL Monocytes Absolute 0.7 0.0 - 0.8 10*3/uL Eosinophils Absolute 0.4 0.0 - 0.5 10*3/uL Basophils Absolute 0.0 0.0 - 0.2 10*3/uL Magnesium Collection Time: 06/20/23 6:11 AM Result Value Ref Range MAGNESIUM 1.8 1.6 - 2.3 mg/dL Phosphorus Collection Time: 06/20/23 6:11 AM Result Value Ref Range PHOSPHORUS 3.4 2.5 - 4.5 mg/dL Calcium, ionized Collection Time: 06/20/23 6:11 AM Result Value Ref Range Calcium, Ion 4.50 4.30 - 5.20 mg/dL PH, IONIZED CALCIUM 7.41 7.31 - 7.46 Stroke Specific: Lipids: Recent Labs 06/19/23 0205 CHOL 183 TRIG 125 HDL 43 Radiology Personal review: ORIGINAL FILMS FROM OSH EKG 06/18/23:IMPRESSION: Sinus rhythm Probable left atrial enlargement RBBB and LAFB CTH 06/19/23:IMPRESSION: 1. No acute intracranial hemorrhage or definite acute cortical infarct. Note that if there is persistent concern for an acute infarct, MRI is a more sensitive means of evaluation MRI brain w/wo 06/20/23:IMPRESSION: 1. Subtle, very tiny focus of probable acute infarct in the motor cortex of the posterior right frontal lobe, near the vertex. 2. No evidence of hemorrhagic transformation. 3. No abnormal enhancement. 4. Pansinusitis. ECHO: 06/19/23: Left Ventricle: Left ventricle is smaller than normal. Mildly increased wall thickness. Hyperdynamic left ventricular systolic function. EF by 2D Simpsons Biplane is 71%. Normal wall motion. Right Ventricle: Right ventricle size is normal. Normal systolic function. Interatrial Septum: No interatrial shunt visualized on color Doppler. Agitated saline study was negative with and without provocation. Right Atrium: Right atrium is mildly dilated. TANA 06/20/23: No thrombus or other source of embolic event is identified. Interatrial Septum: No interatrial shunt visualized on color Doppler. Grade 0 Absence of bubbles. Lipomatous hypertrophy present. Aorta: There is mild atherosclerosis present in the ascending aorta. There is mild atherosclerosis present in the aortic arch. There is mild atherosclerosis in the descending aorta. No large mobile atheromas noted. Left Ventricle: Left ventricle size is normal. Mildly increased wall thickness. Normal left ventricular systolic function. Normal wall motion. Right Ventricle: Right ventricle is mildly dilated. Normal systolic function. Left Atrium: No left atrial appendage thrombus noted. No significant valvular abnormalities. ASSESSMENT / PLAN/RECOMMENDATIONS: Acute ischemic stroke (R high frontal motor) s/p tenecteplase -ETIOLOGY: cryptogenic suspect embolic HTN Tobacco user Daily ETOH use Snoring/day time sleepiness/Presumed obstructive sleep apnea PLAN: - SBP <180 for now, normotension over the next 2-4 weeks -aspirin 81 daily -plavix 75 daily -DAPT with aspirin 81 and plavix 75 for 30 days then aspirin as monotherapy thereafter -Discussed bleeding risk of dual anti-platelet therapy. Pt verbalized understanding and agreeable to treatment. -high intensity statin -suggest B12, thiamine, folc acid -regular diet and exercise suggested -counseled on cessation of tobacco use and moderation of ETOH use -Pt will need to be referred Sleep Medicine for outpatient polysomnography to determine presence of TALITA. Reasoning for suggested referral explained to patient. Pt consented to referral. -will need cryptogenic stroke clinic for event monitoring/loop recording -will need OP stroke follow up Girlfriend and patient updated at the bedside. Plan as above. No further neurological suggestions. We will sign off. 35 minutes of my independent time was spent preparing to see the patient, obtaining/reviewing separately obtained history, completing an appropriate medical examination of the patient, ordering medications/tests/procedures, documenting clinical information on the EMR, and/or coordinating care. Images from the original note were not included. PHYSICAL THERAPY [facility] Initial Evaluation Name/MRN: Roney Small ([id number]) Evaluation Date: 06/20/2023 Date of : 1960 Admission Date: 06/18/2023 1:33 PM Age: 63 y.o. Room/Bed: [facility] A Discharge Recommendation: Home with assist PRN Equipment Needed: No Assessment IMPRESSION: Admitted stroke. Bed mobility completed independently no use of bed rails, HOB flat. Sit < stand EOB independent no device no cues required. Ambulated 550ft independently no device. Ascended and descended 4 steps unilateral hand rail independent. Stand < sit recliner independent no device. Informed nurse patient is safe to ambulate halls independently at this time. At this time PT services DC based on patients functional mobility. Recommend home with assist PRN. Diagnosis: stroke Prognosis: good Performance Deficits /Impairments: N/A Decision Making: Low Complexity Subjective Presented in bed, excited to get up. RN cleared for therapy. Pain: Pt denies any current pain. Past Medical History: No past medical history on file. Past Surgical History: No past surgical history on file. Admission Diagnosis: Patient Active Problem List Diagnosis Date Noted Stroke of unknown cause (HCC) 06/18/2023 Medical Precautions: No active isolations Proper PPE donned/doffed in accordance with facility standards. Fall Risk: Ladd Fall Risk Score: 35 (Medium Risk) Precautions/Restrictions: Lines/Drains/Airways: PIV Skin care precautions Family/Caregiver Present: none Overall Cognitive Status: WNL Overall Orientation Status: Oriented x4 Vision: wears glasses for reading and and are NOT being used during the eval Hearing: normal Social/Functional History Patient admitted from home. Lives With: Significant Other Type of Home: single family home Home Layout: Single Level Home Home Access: Stairs to Enter without Rails (# of stairs: 2) Bathroom Shower/Tub: Toilet: Standard Home Equipment: crutches Homemaking Responsibilities: Independent Receives Help From: Significant other Active Environmental Marketing Representative: Yes Prior Level of Function ADL Assistance: Independent Ambulation Assistance: Independent Transfer Assistance: Independent Objective Lower Extremity Assessment AROM: WNL PROM: WNL Strength: WNL grossly 3+/5 based on functional mobility Bed Mobility: Supine to sit: Independent Scooting: Independent No use of rails, HOB flat Transfers Sit to stand: Independent Stand to sit: Independent No device, no cues required Ambulation Ambulation 1 Assistive device(s) used: none Assist level: Independent Distance (ft): 550 Quality of gait: No gait deviations Stairs Stairs 1 Assistive device(s) used: none Assist level: Independent # of steps: 4 Rails: left Additional factors: reciprocal going up, reciprocal going down Outcome Measures AM-PAC How much HELP from another person do you currently need Turning from your back to your side while in a flat bed without using bedrails?: None Moving from lying on your back to sitting on the side of a flat bed without using bedrails?: None Moving to and from a bed to a chair (including a wheelchair)?: None Standing up from a chair using your arms (wheelchair or bedside chair)?: None Walking in a hospital room?: None Stair climbing assessed?: Yes Climbing 3-5 steps with a railing?+: None AM-PAC Inpatient Mobility Raw Score : 24 AM-PAC Inpatient Mobility Raw Score (No Stairs) : 20 JH-HLM JH-HLM Score: Walked 250 ft or more (i.e. several laps on unit) Plan No skilled acute PT indicated at this time. Please reconsult should changes occur. Safety/Education Safety Safety Devices in place: call light within reach, left in chair, gait belt, nurse notified, and no alarms engaged upon entry Restraints: No Education Education Given To: patient Education Provided: PT Role, Discharge Recommendations, and Benefits of Increasing Activity Education Method: Verbal Barriers to Learning: None Education Outcome: Verbalized Understanding Goals Patient Stated Goal: to go home Therapy Time Individual Co-treatment Time In 0900 Time Out 0913 Minutes 13 This provider wore appropriate PPE throughout session per facility guidelines. Helene Fry, SPT Patient's Physical Therapy Plan of Care supervision is transferred to a [facility] Physical Therapist. Goals and/or treatment plan was established in collaboration with patient/family/other representatives. ICU Transfer Checklist Transfer Med Reconciliation (resume home meds if able, convert to PO if able) Complete Antibiotics (name, indication, duration, convert to PO if able) Yes,--for sinusitis on augmentin Steroid (indication, duration, convert to PO if able) None Anticipated Amenia Medications (ICU initiated) or Dose Changes and Indication No Permanently Discontinued Home Medications and Reason for medication contraindication No Lipscomb Catheter (please remove if able. Note: place DC order) No Central Line (please remove if able. Note: place DC order) No Transfer Discussed with: Dr. Villagomez If additional questions for ICU team within 24 hours of ICU transfer, page [phone] for clarifications. PROGRESS NOTE. STROKE SERVICE Patient Name:Roney Small Patient : 1960 Acct: [id number] Date of Admission: 06/18/2023 Room/Bed: T2-225/T2-225 A PCP: [facility] Patient location ICU Remains in the hospital due to persistent unresolved acute issues, Chief complaint: L arm weakness New Complain: No documented events overnight. SBP have been at goal. A1C 5.5, LDL 115. Upon seeing him this morning he was looking good. States that he is feeling better. Denies any worsening of the L arm. Awaiting post thrombolytic imaging. Sedation:No Diet/TF:regular Lipscomb: No VTE prophylaxis: YES SCDs Antithrombotic therapy in first 24 hrs: YES TNK Statin therapy for stroke stroke patients: High intensity Anticoagulation on AF patients: N/A no history of AF Activity: PT/OT after 24 hours Disposition: likely home Current Hospital Medications: Current Facility-Administered Medications: acetaminophen (Tylenol) tablet 650 mg, 650 mg, Oral, q6h PRN OR acetaminophen (Tylenol) suppository 650 mg, 650 mg, Rectal, q6h PRN, Josee Acierno, BUSINESS RISK CONSULTANT - MANAGING DIRECTOR amoxicillin-clavulanate (Augmentin) 875-125 MG per tablet 1 tablet, 875 mg, Oral, 2 times per day, Josee Acierno, BUSINESS RISK CONSULTANT - MANAGING DIRECTOR, 1 tablet at 06/19/23 0820 atorvastatin (Lipitor) tablet 40 mg, 40 mg, Oral, Daily, Josee Acierno, BUSINESS RISK CONSULTANT - MANAGING DIRECTOR, 40 mg at 06/19/23 0820 bisacodyl (Dulcolax) suppository 10 mg, 10 mg, Rectal, Daily PRN, Josee Acierno, BUSINESS RISK CONSULTANT - MANAGING DIRECTOR folic acid (Folvite) tablet 1 mg, 1 mg, Oral, Daily, Josee Acierno, BUSINESS RISK CONSULTANT - MANAGING DIRECTOR, 1 mg at 06/19/23 0820 hydrALAZINE (Apresoline) injection 10 mg, 10 mg, IntraVENous, q1h PRN, Josee Acierno, BUSINESS RISK CONSULTANT - MANAGING DIRECTOR ipratropium-albuterol (Duo-Neb) 0.5-2.5 mg/3 mL nebulizer solution 3 mL, 3 mL, Nebulization, q4h PRN, Josee Acierno, BUSINESS RISK CONSULTANT - MANAGING DIRECTOR labetalol (Normodyne,Trandate) injection 10 mg, 10 mg, IntraVENous, q10 min PRN, Josee Acierno, BUSINESS RISK CONSULTANT - MANAGING DIRECTOR ondansetron ODT (Zofran-ODT) disintegrating tablet 4 mg, 4 mg, Oral, q8h PRN OR ondansetron (Zofran) injection 4 mg, 4 mg, IntraVENous, q6h PRN, Josee Acierno, BUSINESS RISK CONSULTANT - MANAGING DIRECTOR polyethylene glycol (PEG) 3350 (Miralax) packet 17 g, 17 g, Oral, Daily PRN, Josee Acierno, BUSINESS RISK CONSULTANT - MANAGING DIRECTOR sodium chloride 0.9 % infusion, 5-250 mL/hr, IntraVENous, PRN, Josee Acierno, BUSINESS RISK CONSULTANT - MANAGING DIRECTOR sodium chloride 0.9 % infusion, 75 mL/hr, IntraVENous, Continuous, Josee Acierno, BUSINESS RISK CONSULTANT - MANAGING DIRECTOR, Last Rate: 75 mL/hr at 06/19/23 0432, 75 mL/hr at 06/19/23 0432 sodium chloride 0.9% (NS) flush 5-40 mL, 5-40 mL, IntraVENous, q12h, Josee Acierno, BUSINESS RISK CONSULTANT - MANAGING DIRECTOR, 10 mL at 06/19/23 0208 sodium chloride 0.9% (NS) flush 5-40 mL, 5-40 mL, IntraVENous, PRN, Josee Acierno, BUSINESS RISK CONSULTANT - MANAGING DIRECTOR thiamine (Vitamin B1) tablet 100 mg, 100 mg, Oral, Daily, Josee Acierno, BUSINESS RISK CONSULTANT - MANAGING DIRECTOR, 100 mg at 06/19/23 0820 Continuous Infusions: sodium chloride, 75 mL/hr, Last Rate: 75 mL/hr (06/19/23 0432) Allergies: Patient has no known allergies. Review of Systems Unable to perform ROS: Acuity of condition Objective: Telemetry: Arrhythmia:No Physical Examination: Patient Vitals for the past 8 hrs: BP Temp Pulse Resp SpO2 06/19/23 1000 142/91 -- 89 22 96 % 06/19/23 0900 156/95 -- 77 14 96 % 06/19/23 0800 152/69 36.3 C (97.4 F) 64 13 96 % 06/19/23 0700 151/85 -- 71 (!) 11 93 % 06/19/23 0600 138/91 -- 65 (!) 10 95 % 06/19/23 0500 145/90 -- 74 14 93 % I/O last 3 completed shifts: In: 1089 [I.V.:1089] Out: 900 [Urine:900] General Physical Examination: General:male HEENT:Normocephalic, atraumaticl CV: S1+S2, RRR, no MRG. Pulm:CTA b/l, unlabored Abdomen: Soft NT/ND. BS + Skin: Intact without ulcers, breakdowns or discoloration Extremities: normal with no edema or cyanosis Orthopedic limitation; N/A Pulses: Intact peripherally Carotid auscultation :No bruits Neurological Examination: Higher Functions: Mental Status Exam: Level of Alertness:Awake Orientation: Normal toself, time, place Memory: Normal Fund of Knowledge: Normal Language: Normal Dysarthria not present Cranial Nerves: -II Visual acuity: normal -II Visualfields: normal -III Pupils (~ 3 mm OD, 3 mm OU) equal, round, reactive to light -III-IV- Extraocular Movements: intact -Nystagmus not present -Saccades and pursuits normal -V Facial sensation: intact Corneal's Intact bilateral -VII Facial strength:intact -VIII Hearing: intact -IX-X - Gag reflex present -X Palate: intact -XI Shoulder shrug: intact -XII Tongue movement: not participant MotorExamination: Tone after evaluation of 4 limbs, the following findings applied: Normal all limbs -Bulk: normal -Muscle Stretch afterevaluation of all limbs, and axial musculature the following findings applied: Drift: absent -Reflexes: after evaluation of 4 limbs, the following findings applied ; normal all limbs -Plantar responce: Flexor bilaterally Sensory Intact to light touch, pain / temperature, proprioception, Coordination: Arms Normal finger to nose Legs Intact heel knee monge testing Tremors not present Gait abnormal, patient unable to walk due to acute circumstances / bed rest / safety concerns NIHSS: 0 ANCILLARY Last 24hrs Recent Results (from the past 24 hour(s)) ECG 12 lead if not done in the ED Collection Time: 06/18/23 2:09 PM Result Value Ref Range Heart Rate 81 bpm QRSD Interval 141 ms QT Interval 403 ms QTC Interval 467 ms P Sher[place] 69 degrees QRS Sheridan -81 degrees T Wave [place] 21 degrees DC Interval 166 ms Troponin, with Serial Reflex Collection Time: 06/18/23 2:24 PM Result Value Ref Range TROPONIN I <0.012 <0.034 ng/mL Troponin I Collection Time: 06/18/23 8:25 PM Result Value Ref Range TROPONIN I <0.012 <0.034 ng/mL MEDICATION ASSISTED TREATMENT PANEL Collection Time: 06/18/23 9:17 PM Result Value Ref Range AMPHETAMINES Negative Negative BARBITURATES Negative Negative BENZODIAZEPINES Negative Negative COCAINE Negative Negative METHADONE Negative Negative OPIATES Negative Negative OXYCODONE/OXYMORPHONE Negative Negative PCP Negative Negative BUPRENORPHINE SCREEN Negative Negative THC Positive Negative FENTANYL Negative Negative ETHANOL Negative Negative Troponin I Collection Time: 06/19/23 2:05 AM Result Value Ref Range TROPONIN I <0.012 <0.034 ng/mL Lipid panel Collection Time: 06/19/23 2:05 AM Result Value Ref Range TRIGLYCERIDE 125 <150 mg/dL CHOLESTEROL 183 <200 mg/dL LOW DENSITY LIPOPROTEIN 115 (H) 0 - <100 mg/dL HDL CHOLESTEROL 43 40 - 60 mg/dL CHOL/HDL 4 Hemoglobin A1c Collection Time: 06/19/23 2:05 AM Result Value Ref Range HEMOGLOBIN A1C 5.5 <5.7 % ESTIMATED AVERAGE GLUCOSE 111 mg/dL Comprehensive metabolic panel Collection Time: 06/19/23 2:05 AM Result Value Ref Range SODIUM 133 (L) 135 - 145 mmol/L POTASSIUM 4.2 3.5 - 5.1 mmol/L CHLORIDE 105 98 - 107 mmol/L CARBON DIOXIDE 21 (L) 22 - 30 mmol/L ANION GAP 7 3 - 13 mmol/L UREA NITROGEN 16 9 - 20 mg/dL CREATININE 0.69 0.66 - 1.25 mg/dL GLUCOSE 102 (H) 70 - 100 mg/dL CALCIUM 8.9 8.4 - 10.4 mg/dL AST (SGOT) 29 15 - 46 U/L ALT 20 0 - 49 U/L ALKALINE PHOSPHATASE 70 38 - 126 U/L ALBUMIN 3.9 3.5 - 5.0 g/dL BILIRUBIN, TOTAL 0.9 0.2 - 1.3 mg/dL TOTAL PROTEIN 7.2 6.3 - 8.2 g/dL eGFR >90.0 >60.0 mL/min/1.73m*2 CBC auto differential Collection Time: 06/19/23 2:05 AM Result Value Ref Range Auto WBC 7.0 3.6 - 10.7 10*3/uL RBC 4.78 4.40 - 5.90 10*6/uL Hemoglobin 14.9 13.0 - 18.0 g/dL Hematocrit 44.4 40.0 - 52.0 % MCV 92.9 80.0 - 98.0 fL MCH 31.2 26.0 - 34.0 pg MCHC 33.6 32.0 - 36.0 % RDW 12.7 11.5 - 14.5 % Platelets 211 140 - 440 10*3/uL MPV 7.6 7.4 - 12.4 fL nRBC 0.0 0.0 - 2.0 /100 WBCs Neutrophils Relative 48.0 40.0 - 80.0 % Lymphocytes Relative 33.7 20.0 - 40.0 % Monocytes Relative 10.6 (H) 2.0 - 10.0 % Eosinophils Relative 6.7 (H) 1.0 - 6.0 % Basophils Relative 1.0 0.0 - 2.0 % Neutrophils Absolute 3.4 1.8 - 7.0 10*3/uL Lymphocytes Absolute 2.4 1.0 - 4.3 10*3/uL Monocytes Absolute 0.7 0.0 - 0.8 10*3/uL Eosinophils Absolute 0.5 0.0 - 0.5 10*3/uL Basophils Absolute 0.1 0.0 - 0.2 10*3/uL Magnesium Collection Time: 06/19/23 2:05 AM Result Value Ref Range MAGNESIUM 2.0 1.6 - 2.3 mg/dL Phosphorus Collection Time: 06/19/23 2:05 AM Result Value Ref Range PHOSPHORUS 4.1 2.5 - 4.5 mg/dL Calcium, ionized Collection Time: 06/19/23 2:05 AM Result Value Ref Range Calcium, Ion 4.50 4.30 - 5.20 mg/dL PH, IONIZED CALCIUM 7.42 7.31 - 7.46 Stroke Specific: Lipids: Recent Labs 06/19/23 0205 CHOL 183 TRIG 125 HDL 43 Radiology Personal review: ORIGINAL FILMS FROM OSH CTH: pending MRI brain w/wo pending ECHO: pending ASSESSMENT / PLAN/RECOMMENDATIONS: L arm weakness/tingling/clumsiness s/p tenecteplase -suspect R hemispheric vs R pontine stroke HTN Tobacco user Daily ETOH use PLAN: - Post TNK protocol -CTH pending -MRI this afternoon - SBP <180 mmHg, DBP <105 mmHg - PT/OT oob - No antiplatelets/antiothrombotics in first 24 hours after TNK -if CTH unremarkable for blood suggest DAPT with aspirin 81 and plavix 75 daily for 30 days then aspirin as monotherapy thereafter -okay for DVT ppx if CTH unremarkable -high intensity statin - TTE - PT/OT/ST -suggest B12, thiamine, folc acid We will follow. 35 minutes of my independent time was spent preparing to see the patient, obtaining/reviewing separately obtained history, completing an appropriate medical examination of the patient, ordering medications/tests/procedures, documenting clinical information on the EMR, and/or coordinating care. ICU Progress Note Name: Roney Small : 1960(63 y.o.) Date: 06/19/23 Team: MICU Attending: Dr. 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 NIH 3 (LUE/LLE weakness, +ataxia). Stroke team called. CTH with no acute intracranial abnormalities, but complete opacification of the left maxillary sinus with widening of the ostiomeatal unit. CTA with verena atherosclerotic plaque at the carotid bifurcation without significant narrowing and patent carotid and vertebral arteries. Pt given TNK at ~11:09am. Patient transferred and admitted to T2 ICU for further stroke w/u and management. NIH 1 on arrival to ICU for slight upward drift of LUE. Interval Events: No acute issues overnight per nursing. NIH 0. Pt denies blurred vision, double vision, SOB, CP, nausea, vomiting. Scheduled Meds:amoxicillin-clavulanate, 875 mg, Oral, 2 times per day aspirin, 81 mg, Oral, Daily atorvastatin, 40 mg, Oral, Daily clopidogrel, 75 mg, Oral, Daily enoxaparin, 40 mg, SubCUTAneous, q24h folic acid, 1 mg, Oral, Daily sodium chloride 0.9%, 5-40 mL, IntraVENous, q12h thiamine, 100 mg, Oral, Daily Continuous Infusions:sodium chloride, 75 mL/hr, Last Rate: 75 mL/hr (06/19/23 0432) Objective: Last Vitals: BP MAP 156/93 (06/19/23 1500) 110 (06/19/23 1500) Arterial BP MAP Temp 36.3 C (97.4 F) (06/19/23 0800) Pulse 71 (06/19/23 1500) Resp 15 (06/19/23 1500) SpO2 97 % (06/19/23 1500) Weight BMI There is no height or weight on file to calculate BMI. I/O: 06/18 0700 - 06/19 0659 In: 1089 [I.V.:1089] Out: 900 [Urine:900] Oxygen Delivery: Invasive Lines / Tubes / Drains: Peripheral IV 06/18/23 Right Antecubital (Active) Number of days: 1 Peripheral IV 06/18/23 Left Antecubital (Active) Number of days: 1 Wounds: Constitutional: General Appearance [x]WDWN []Obese []Cachectic []Thin []Ill Eyes: Inspection of Pupils/Irises Pupils round and react: [x]Yes []No Sclera: []Icteric [x]Non-Icteric Inspection of Conjunctiva/Lids Conjunctiva: []Injected [x]Non-Injected Lids: [x]Intact []Lesion Present ENT/Mouth: External Inspection of ears/nose [] Normal [] Scar/Lesion/Mass Inspection of teeth/lips/gums Dentition: [x][place] Teeth []Dentures Lips/Gums: []Intact []Lesion Present Mucosa: [][place] [x]Moist []Dry Neck: External Appearance Overall Appearance: [x]Normal []Lesion/Mass/Crepitus Present Trachea midline: [x]Yes []No Thyroid []Normal []Enlarged []Tender []Mass []Absent Respiratory: Respiratory effort []Labored [x]Non-Labored [] Mechanically-Ventilated Auscultation [x]Clear []Crackles []Wheezes [][place] Cardiovascular: Auscultation Rate: [x]Regular []Irregular []Tachycardia []Bradycardia Rhythm: [x]Regular []Irregular Murmur: []Present [x]Absent Extremities Peripheral Edema: []Present [x]Absent Varicosities: []Present [x]Absent Gastrointestinal: Abdomen Palpation: [x]Soft []Firm []Tender []Non-Tender []Distended [x]Non-distended Mass: []Present [x]Absent Bowel Sounds: [x]Present []Absent Hernia: []Present [x]Absent Liver/Spleen: []Hepatosplenomegaly []Organomegaly Absent Musculoskeletal: Inspection of Digits and Nails Cyanosis: []Present [x]Absent Clubbing: []Present [x]Absent Ischemia: []Present [x]Absent Infection: []Present []Absent Extremities REYES Equally: YES ([]RUE []RLE []LUE []LLE) Strength/Tone: Intact and Normal ([]RUE []RLE []LUE []LLE) Skin: Inspection [x]Normal []Rash []Lesion []Ulcer Palpation [x]Warm []Cool []Dry []Clammy []Nodules []Induration []Skin-tightening Cap-Refill: [x] <3 sec [] >3 seconds (delayed) Neurologic: GCS EYE: 4 - Opens spontaneously GCS MOTOR: 6 - Obeys commands for movement GCS VERBAL: 5 - Oriented to person, place, time Total GCS: 15 [] Sensation grossly intact Psych: Mental Status Alert: [x]Yes [] No Oriented: []x0 []X1 []X2 [x]x3 Mood/Affect [x]Normal []Flat []Agitated []Depressed []Anxious []Calm []Sedated []NAD [facility] within last 24 hours- BMP: Recent Labs 06/19/23204 NA 133* K 4.2 CL 105 CO2 21* BUN 16 CREATININE 0.69 CALCIUM 8.9 MG 2.0 PHOS 4.1 LFTs: Recent Labs 06/19/23204 AST 29 ALT 20 PROT 7.2 ALBUMIN 3.9 BILITOT 0.9 ALKPHOS 70 Glucose: Recent Labs 06/19/23204 GLUCOSE 102* Procal: No results for input(s): PROCAL in the last 72 hours. CBC: Recent Labs 06/19/23204 WBC 7.0 HGB 14.9 HCT 44.4 PLT 211 MCV 92.9 RDW 12.7 ABGs: No results for input(s): PHART, LCO8RHA, PO2ART, SKC1MFE, SO2ART, L4IIRXUH in the last 72 hours. Lactic Acid: No results for input(s): LACTATE in the last 72 hours. INR: No results for input(s): INR in the last 72 hours. Cardiac Injury Profile: Recent Labs 06/18/23 1424 06/18/23202406/19/23 0205 TROPONINI <0.012 <0.012 <0.012 Labs in Last 3 months: No results found for: TSH, VITD25, PSA, INR, GLUF Microbiology- Urine Cx: No results found for: URINECX Blood Cx: No results found for: BLOODCX Sputum Cx: No results found for: RESPCULT Gram Stain: No results found for: LABGRAM PNA PCR: No results found for: HUMANMETAPNE COVID19: No results found for: COVID19 Legionella Ag: No results found for: LEGIONELLAPN Strep Ag: No results for input(s): STREPPNEUMO in the last 72 hours. Imaging- CTH 06/18 (from OSH): No appreciable acute intracranial abnormality. Complete opacification of the Left maxillary sinus with widening of the osteomeatal unit. 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 Recommend ENT f/u for further eval. CTA Head/Neck 06/18 (from OSH): Bilateral atherosclerotic plaque at the carotid bifurcation w/u significant narrowing. Patent carotid and vertebral arteries of the neck . Assessment and Plan: Principal Problem: Stroke of unknown cause (HCC) Assessment: Concern for acute ischemic stroke s/p TNK 06/18/23 Left maxillary sinusitis Hx Tobacco Use Hx ETOH use Debility FEN Full Code Plan: Neuro CC following. MRI cannot be done until later today 06/01 scheduling, will order CTH for 11am--if no HT will start DAPT with aspirin 81 and plavix 75 daily for 30 days then aspirin as monotherapy thereafter. Pt maintaining SBP 180/DBP <105. Hgb A1C 5.5. Lipid panel with elevated LDL (115)--continue statin Found incidentally on CTH--MRI brain ordered for later today for stroke f/u. Consider consulting ENT depending on results, will treat with augmentin. Prn nebs ordered, pt stable on RA, educated on need for smoking cessation Continue folic/thiamine--no S&S of w/d. Consider adding CIWA protcol/prn ativan if needed. Monitor for withdrawal. PT/OT after 24hr bedrest (up today at 11am) Speech eval'd pt as was coughing on water yesterday--passed for regular diet/thin liquids--doing well with diet today. Replace electrolytes rpn Full Code DVT Prophylaxis: SCDS---start lovenox if no HT on 24hr imaging. Disposition: Transfer to [address] [place] [address] today if 24 imaging without HT Plan discussed with Dr. Reilly Time spent preparing to see the patient, obtaining/reviewing separately obtained history, completing an appropriate medical examination of the patient, ordering medications/tests/procedures, documenting clinical information on the EMR, and/or coordinating care is a subsequent visit: 50 minutes (Level III). Images from the original note were not included. Speech-Language Pathology SPEECH LANGUAGE PATHOLOGY [facility] Dysphagia Treatment Note Patient Name: Roney Small Evaluation Date: 06/19/2023 Date of : 1960 Admission Date: 06/18/2023 1:33 PM Age: 63 y.o. Room/Bed: T2-225/T2-225 A Subjective Patient alert and cooperative. Seen upright in bed. Answers all basic questions with strong vocal quality. Follows all basic commands. No visitors at bedside. Spoke with FRANCIA Nina who cleared pt for treatment. Current Diet: Dietary Orders (From admission, onward) Start Ordered 06/18/23 1518 Adult diet Regular Diet effective now Question: Diet type Answer: Regular 06/18/23 1517 Aspiration Precautions: - Upright positioning for all PO intake - Small bites/sips Oxygen: Oxygen Therapy: None (Room air) Pain: RN managing pain. PPE Worn: surgical mask, gloves Objective & Assessment Dysphagia Treatment # of Activities: 1 Dysphagia Activity 1: assess dietary tolerace Patient consumes thin liquids via cup edge and straw with subjective timely swallow onset and no change in vocal quality noted post swallow. Patient consumes dry cracker with good mastication, good bolus management, and subjectively timely swallow onset. No oral residue is noted post swallow. Patient continues to have intermittent dry cough, with and without PO intake. Patient states his throat feels a little dry and is cough is not related to PO intake. Plan & Recommendations Plan: Please re-consult if indicated. Patient has achieved all acute care BUNDLE TIER goals. Speech therapy to sign off at this time. D/C Recommendations: No follow up therapy recommended post discharge Education Education Given: swallowing strategies, diet recommendations Given To: patient and RN Response: verbalizes understanding Goals Patient Stated Goal: to eat breakfast. Encounter Problems Encounter Problems (Active) Swallowing Patient will tolerate recommended food and liquid consistencies without clinical signs and symptoms of aspirations (Adequate for Discharge) Start: 06/18/23 Expected End: 06/25/23 Therapy Time BUNDLE TIER Individual Minutes Time In: 08 Time Out: 04 Minutes: 9 Arcelia Day Images from the original note were not included. PHYSICAL THERAPY [facility] Name/MRN: Roney Small ([id number]) Date: 06/19/2023 Received orders for PT eval and treat. Pt currently on bedrest. Will hold until activity level is increased. Miriam Le Images from the original note were not included. Speech-Language Pathology SPEECH LANGUAGE PATHOLOGY [facility] Bedside Swallow Evaluation Patient Name: Roney Small Evaluation Date: 06/18/2023 Date of : 1960 Admission Date: 06/18/2023 1:33 PM Age: 63 y.o. Room/Bed: T2-225/T2-225 A IMPRESSION: No s/s oropharyngeal dysphagia. No overt clinical s/s pulmonary compromise with PO. Risk factors for aspiration include cough with liquids earlier today. RECOMMENDATION: Recommend Regular solids and Thin liquids and meds as tolerated and the following precautions: - Upright positioning for all PO intake - Small bites/sips Pt would benefit from skilled acute BUNDLE TIER services to ensure diet tolerance. Frequency: 3 days/wk for 1 week Barriers: None Prognosis: excellent D/C Recommendations: No follow up therapy recommended post discharge Subjective Patient alert and cooperative. Seen upright in bed. Answers all basic questions with clear, strong vocal quality. Follows all basic commands. Visitors at bedside - significant other. Spoke with FRANCIA Falcon who cleared pt to be evaluated. Dysphagia History: No history of BUNDLE TIER services in EMR with retrospective chart review Baseline Diet: regular with thin liquids Current Diet: was NPO at time of evaluation Dietary Orders (From admission, onward) Start Ordered 06/18/23 1518 Adult diet Regular Diet effective now Question: Diet type Answer: Regular 06/18/23 1517 Tube Feeding: no Tracheostomy: no Recent Chest Xray/CT of Chest: No results found for this visit on 06/18/23. Oxygen: Past Medical History: No past medical history on file. Past Surgical History: No past surgical history on file. 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 NIH 3 (LUE/LLE weakness, +ataxia). Stroke team called. CTH with no acute intracranial abnormalities, but complete opacification of the left maxillary sinus with widening of the ostiomeatal unit. CTA with verena atherosclerotic plaque at the carotid bifurcation without significant narrowing and patent carotid and vertebral arteries. Pt given TNK at ~11:09am. Patient transferred and admitted to T2 ICU for further stroke w/u and management. NIH 1 on arrival to ICU for slight upward drift of LUE. Patient Complaint: patient reports thirst; failed nursing swallow screen due to cough Pain: RN managing pain. PPE Worn: gloves Objective Bedside swallow eval completed. Oral Motor Mechanism Adequate structure, strength, and ROM in lingual, labial, and buccal musculature. Timely volitional swallow. Adequate dentition. Oral Hygiene: moist, clean Swallowing Examination PO Trials - ice chips, (teaspoon, fed by clinician) - thin liquid, (teaspoon, cup edge, straw) - puree, (fed by clinician) - regular solids Oral Phase Pt with adequate oral receipt of PO trials. No anterior spillage. Mastication appeared complete, organized, and timely. Oral transit time appears WFL. No oral residue. Pharyngeal Phase Hyolaryngeal excursion clinically appears adequate and timely per palpation. 1-2 swallows palpated per bolus, likely indicative of adequate pharyngeal clearance. Brief throat clear noted x 1 but no additional s/s of aspiration with any PO presented. No coughing or change in vocal quality. Additional Observations: throat clearing noted without PO presentations as well Education Education Given: role of therapy, diet recommendations Given To: patient, significant other, and RN Response: verbalizes understanding Goals Patient Stated Goal: to eat and drink Encounter Problems Encounter Problems (Active) Swallowing Patient will tolerate recommended food and liquid consistencies without clinical signs and symptoms of aspirations Start: 06/18/23 Expected End: 06/25/23 Therapy Time BUNDLE TIER Individual Minutes Time In: 1500 Time Out: 1515 Minutes: 15 Lenora Pickard MA, CCC/BUNDLE TIER Images from the original note were not included. OCCUPATIONAL THERAPY [facility] Name/MRN: Roney Small ([id number]) Date: 06/18/2023 OT orders received, chart reviewed. Pt currently with bedrest orders. Hold OT pending upgraded activity orders. Will re-attempt as schedule permits. Shira Chaves OTR/L documented in this encounter [facility] 06-20-2023 Note Met with patient ok to schedule PCP follow up requests 4 PM if possible. Will send Neurology referral to [facility] to keep follow up closer to home. Will give [facility] Neurology info just in case [facility] unable to schedule. Called Dr Hernandez office only able to leave a message. [facility] 06-20-2023 Note Care Management Prog ress Note Transfer from T2- neuro work up- need final recs- has pcp - script coverage and transport home- wants to cont to work- PT eval pending- PO AB for sinusitis- home today vs 24 . Discharge Milestones and Delays Expected Date/Time: 06/21/[address] discharge order Complete med reconciliation Case mgmt discharge readiness Clinical Stability Diagnsotic Workup Expected Discharge History Expected Date/Time Set By Reviewed At 06/21/2023 Almaz De La Garza RN 06/20/2023 8:48 AM 06/28/2023 Narda Merlos RN 06/19/2023 7:58 AM 06/28/2023 Josee Menjivar APRN - [place] 06/18/2023 1:38 PM Length of Stay (Days): 2 GMLOS: No GMLOS Documented [facility] 06-20-2023 Note Formatting of this n ote might be different from the original. Met with patient ok to schedule PCP follow up requests 4 PM if possible. Will send Neurology referral to [facility] to keep follow up closer to home. Will give [facility] Neurology info just in case [facility] unable to schedule. Called Dr Hernandez office only able to leave a message. [facility] 06-20-2023 Note Formatting of this n ote might be different from the original. Met with patient ok to schedule PCP follow up requests 4 PM if possible. Will send Neurology referral to [facility] to keep follow up closer to home. Will give [facility] Neurology info just in case [facility] unable to schedule. Called Dr Mary ritchie only able to leave a message. [facility] 06-20-2023 Consult note Formatting of th is note might be different from the original. TANA consult Reason for consult: CVA HPI: Roney Small is 63 yo M with PMHx tobacco abuse ( 6-8 cigarettes daily x 40 years), ETOH use (3 12oz beers daily) who presented to OSH 06/18 with acute onset of LUE/LLE weakness. Found to have subtle, very tiny focus of probable acute infarct in the motor cortex of the posterior right frontal lobe, near the vertex on MRI. TTE showed: Left Ventricle: Left ventricle is smaller than normal. Mildly increased wall thickness. Hyperdynamic left ventricular systolic function. EF by 2D Simpsons Biplane is 71%. Normal wall motion. Right Ventricle: Right ventricle size is normal. Normal systolic function. Interatrial Septum: No interatrial shunt visualized on color Doppler. Agitated saline study was negative with and without provocation. Right Atrium: Right atrium is mildly dilated. Cardiology team was consulted for TANA. On review : patient denies odynophagia, dysphagia, dental issues or GI bleed. No prior history with difficult endoscopy. Diet : NPO Physical exam: GEN : Awake, alert, comfortable CV :Normal S1S2, regular, no murmur. Pulm : CTAB Labs: Hgb : 15.2 g/dL Platelets: 207 10*3/uL Indication for TANA: Ischemic CVA Contraindications: None Informed consent: Risks, benefits and complications were explained to the patient who understood the risks and agrees with the procedure. Assessment and Plan: - No contraindication for TANA, consent obtained, orders placed. - Plan for TANA today - Please keep NPO Patient was discussed with the attending, Dr. Lopez, who agrees with the assessment and plan. Associated attestation - Dejah Lopez MD - 06/20/2023 10:02 AM EST This attestation note confirms that I have separately examined and evaluated the patient. I have reviewed, agree and updated the findings of the guest relations executive. Cardiac MAVIS, no contraindications. TANA indicated. Electronically signed by @JASON@ on @TDNR@ at @NOWNR@ [facility] Work Phone: 06-20-2023 Consult note Formatting of th is note might be different from the original. TANA consult Reason for consult: CVA HPI: Roney Small is 63 yo M with PMHx tobacco abuse ( 6-8 cigarettes daily x 40 years), ETOH use (3 12oz beers daily) who presented to OSH 06/18 with acute onset of LUE/LLE weakness. Found to have subtle, very tiny focus of probable acute infarct in the motor cortex of the posterior right frontal lobe, near the vertex on MRI. TTE showed: Left Ventricle: Left ventricle is smaller than normal. Mildly increased wall thickness. Hyperdynamic left ventricular systolic function. EF by 2D Simpsons Biplane is 71%. Normal wall motion. Right Ventricle: Right ventricle size is normal. Normal systolic function. Interatrial Septum: No interatrial shunt visualized on color Doppler. Agitated saline study was negative with and without provocation. Right Atrium: Right atrium is mildly dilated. Cardiology team was consulted for TANA. On review : patient denies odynophagia, dysphagia, dental issues or GI bleed. No prior history with difficult endoscopy. Diet : NPO Physical exam: GEN : Awake, alert, comfortable CV :Normal S1S2, regular, no murmur. Pulm : CTAB Labs: Hgb : 15.2 g/dL Platelets: 207 10*3/uL Indication for TANA: Ischemic CVA Contraindications: None Informed consent: Risks, benefits and complications were explained to the patient who understood the risks and agrees with the procedure. Assessment and Plan: - No contraindication for TANA, consent obtained, orders placed. - Plan for TANA today - Please keep NPO Patient was discussed with the attending, Dr. Lopez, who agrees with the assessment and plan. Associated attestation - Dejah Lopez MD - 06/20/2023 10:02 AM EST This attestation note confirms that I have separately examined and evaluated the patient. I have reviewed, agree and updated the findings of the guest relations executive. Cardiac MAVIS, no contraindications. TANA indicated. Electronically signed by @[email or web address]@ on @TDNR@ at @NOWNR@ Associated Order(s): IP CONSULT TO NEUROLOGY INITIAL CONSULT NOTE. STROKE SERVICE Patient Name: Roney Small Patient : 1960 Acct: [id number] Date of Admission: 06/18/2023 Room/Bed: T2-225/T2-225 A PCP: David Sanz History of Present Ilness: 63 y.o. is right handed male with the chief Complaint of:L arm weakness/tingling 63yo M we are consulted for stroke. Patient from [facility] who was transferred after receiving thrombolytics. 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 He states that when he noticed it happened he was unable to function with the L hand as well and even though he knew he needed the hand to move, he couldn't make it do so. He denied any other weakness focality subjectively. On arrival to [facility] he was given NIH of 3 for face, arm and leg on the L side. CTH unremarkable, CTA unremarkable. Decision for thrombolytics and [facility] transfer. Patient had no diagnosed medical problems. Takes a multivitamin daily. Daily tobacco smoker about 6-8 cigarettes. Daily ETOH consumption about 3-4 beers. Upon seeing him on his arrival to [facility] he was awake and pleasant. States that he thinks his arm is improving but something is still not fully normal. Denies any other complaints or focality of symptoms. Past Medical History: None Past Surgical History: @PSHN@ Home Medications: Prior to Admission medications Not on File Current Hospital Medications: Current Facility-Administered Medications: acetaminophen (Tylenol) tablet 650 mg, 650 mg, Oral, q6h PRN OR acetaminophen (Tylenol) suppository 650 mg, 650 mg, Rectal, q6h PRN, Josee Chatterjeeierradha BUSINESS RISK CONSULTANT - MANAGING DIRECTOR atorvastatin (Lipitor) tablet 40 mg, 40 mg, Oral, Daily, Josee Senierradha, BUSINESS RISK CONSULTANT - MANAGING DIRECTOR bisacodyl (Dulcolax) suppository 10 mg, 10 mg, Rectal, Daily PRN, Josee Menjivar BUSINESS RISK CONSULTANT - MANAGING DIRECTOR hydrALAZINE (Apresoline) injection 10 mg, 10 mg, IntraVENous, q1h PRN, Josee Menjivar BUSINESS RISK CONSULTANT - MANAGING DIRECTOR labetalol (Normodyne,Trandate) injection 10 mg, 10 mg, IntraVENous, q10 min PRN, Josee Menjivar BUSINESS RISK CONSULTANT - MANAGING DIRECTOR ondansetron ODT (Zofran-ODT) disintegrating tablet 4 mg, 4 mg, Oral, q8h PRN OR ondansetron (Zofran) injection 4 mg, 4 mg, IntraVENous, q6h PRN, Josee Menjivar BUSINESS RISK CONSULTANT - MANAGING DIRECTOR polyethylene glycol (PEG) 3350 (Miralax) packet 17 g, 17 g, Oral, Daily PRN, Josee Menjivar BUSINESS RISK CONSULTANT - MANAGING DIRECTOR sodium chloride 0.9 % infusion, 5-250 mL/hr, IntraVENous, PRN, Josee Acierno, BUSINESS RISK CONSULTANT - MANAGING DIRECTOR sodium chloride 0.9 % infusion, 75 mL/hr, IntraVENous, Continuous, Josee Acierno, BUSINESS RISK CONSULTANT - MANAGING DIRECTOR sodium chloride 0.9% (NS) flush 5-40 mL, 5-40 mL, IntraVENous, q12h, Josee Acierno, BUSINESS RISK CONSULTANT - MANAGING DIRECTOR sodium chloride 0.9% (NS) flush 5-40 mL, 5-40 mL, IntraVENous, PRN, Josee Acierno, BUSINESS RISK CONSULTANT - MANAGING DIRECTOR Continuous Infusions: sodium chloride, 75 mL/hr Allergies: Patient has no allergy information on record. Social History: TOBACCO: has no history on file for tobacco use. ETOH: has no history on file for alcohol use. RECREATIONAL DRUG USE: Social History Substance and Sexual Activity Drug Use Not on file Family History: Paternal stroke Review of Systems Unable to perform ROS: Acuity of condition Physical Examination: No data found. No intake/output data recorded. General Physical Examination: General: male HEENT:Normocephalic, atraumaticl CV: S1+S2, RRR, no MRG. Pulm:CTA b/l, unlabored Abdomen: Soft NT/ND. BS + Skin: Intact without ulcers, breakdowns or discoloration Extremities: normal with no edema or cyanosis Orthopedic limitation; N/A Pulses: Intact peripherally Carotid auscultation :No bruits Neurological Examination: Higher Functions: Mental Status Exam: Level of Alertness:Awake Orientation: Normal to self, time, place Memory: Normal Fund of Knowledge: Normal Language: Normal Dysarthria not present Cranial Nerves: -II Visual acuity: normal -II Visual calzada: normal -III Pupils (~ 3 mm OD, 3 mm OU) equal, round, reactive to light -III-IV- Extraocular Movements: intact -Nystagmus not present -Saccades and pursuits normal -V Facial sensation: intact Corneal's Intact bilateral -VII Facial strength: intact -VIII Hearing: intact -IX-X- Gag reflex present -X Palate:intact -XI Shoulder shrug: intact -XII Tongue movement: normal Funduscopic Exam: normal, no edema or exudates both eyes Motor Examination: Tone after evaluation of 4 limbs, the following findings applied: Mildly decreased L arm, weakness with dorsiflexion -Bulk: normal -Muscle Stretchafter evaluation of all limbs, and axial musculature the following findings applied: Drift: upward drift of the LUE -Reflexes: after evaluation of 4 limbs, the following findings applied ; normal all limbs -Plantar responce: Flexor bilaterally Sensory Intact to light touch, pain / temperature, proprioception, Coordination: Arms Normal finger to nose Legs Intact heel knee monge testing Tremors not present Gait abnormal, patient unable to walk due to acute circumstances / bedrest / safety concerns NIHSS 1a Level of consciousness: 0=alert; keenly responsive 1b. LOC questions: 0=Performs both tasks correctly 1c. LOC commands: 0 2. Best Gaze: 0=normal 3. Visual: 0=No visual loss 4. Facial Palsy: 0=Normal symmetric movement 5a. Motor left arm: 1 5b. Motor right arm: 0=No drift, limb holds 90 (or 45) degrees for full 10 seconds 6a. motor left le=No drift, limb holds 90 (or 45) degrees for full 10 seconds 6b Motor right le=No drift, limb holds 90 (or 45) degrees for full 10 seconds 7. Limb Ataxia: 0=Absent 8. Sensory: 0=Normal; no sensory loss 9. Best Language: 0=No aphasia, normal 10. Dysarthria: 0=Normal 11. Extinction and Inattention: 0=No abnormality 12. Distal motor function: 0=Normal Total: 1 Radiology Personal review: ORIGINAL FILMS FROM OSH MRI brain w/wo pending ECHO: pending ASSESSMENT / PLAN / SUGGESTIONS : L arm weakness/tingling/clumsiness -suspect R hemispheric vs R pontine stroke Dysphagia HTN Tobacco user Daily ETOH use PLAN: - Post TNK protocol - SBP <180 mmHg, DBP <105 mmHg - Complete bedrest x 24 hours - No antiplatelets/antiothrombotics in first 24 hours after TNK - NPO until swallow evaluation - Avoid invasive lines if able - Repeat CT head in 24 hours post TNK unless MRI Brain is performed - MRI brain with and without contrast (because of age) - TTE - PT/OT/ST -suggest B12, thiamine, folc acid Patient aware of plan as above. We will follow. 45 minutes of my independent time was spent preparing to see the patient, obtaining/reviewing separately obtained history, completing an appropriate medical examination of the patient, ordering medications/tests/procedures, documenting clinical information on the EMR, and/or coordinating care. Associated attestation - Kathrin Joshi MD - 06/18/2023 4:30 PM EST Neuro Critical Care / stroke Attending Patient personally discussed with the ED physician at the outside facility. Patient first presented with sudden onset of left arm tingling followed by weakness with inability to move the arm only with small movement of the fingers while in specific position that he uses at work there was no new to him symptoms persisted after CT CTA for what the outside Stroke service from the outside facility recommended TNK in which point the patient was transferred to us. On arrival to our department the patient had barely a mild left upper extremity pronation which was minimally noticeable. He was also hypertensive. Images are currently being uploaded from the outside facility he had a CT reportedly negative and a CTA head and neck also reported to be negative however I have not had a chance to see them in person Patient EKG essentially normal At this point the patient is being treated as a possible acute right hemispheric stroke and to prevent otherwise we will obtain an MRI of the brain and manage currently her his risk factors which include : hypertension Mild elevation of body mass index Completed stroke risk assessment Post TNK treatments blood pressure goals attained should be okay with systolic blood pressure up to 180 80 Starting tomorrow morning I personally interviewed and examined this patient , reviewed and attested the note for this patient. I reviewed the chart including MAR, labs, neuroimaging, other imaging studies and discussed my diagnostic impression and patient's plan of care with my KURT/resident, student and the consulting team and patient's family members/surrogate decision makers (in cases where the patient is incapacitated and unable to participate in their own care). [x] Encounter Face to Face [x] Consult [x] Level of care [x] V [x] will continue to follow Personal discussion of test results and plan of care with: Patient treatments and testing options informed consent and plan of care, ED physician, Family, ., . Thank you [facility] for the opportunity to be involved in this patient's care. documented in this encounter [facility] 06-20-2023 Note Formatting of this n ote is different from the original. Images from the original note were not included. Care Management Progress Note Transfer from T2- neuro work up- need final recs- has pcp - script coverage and transport home- wants to cont to work- PT eval pending- PO AB for sinusitis- home today vs 24 . Discharge Milestones and Delays Expected Date/Time: 06/21/[address] discharge order Complete med reconciliation Case mgmt discharge readiness Clinical Stability Diagnsotic Workup Expected Discharge History Expected Date/Time Set By Reviewed At 06/21/2023 Almaz De La Garza RN 06/20/2023 8:48 AM 06/28/2023 Narda Merlos RN 06/19/2023 7:58 AM 06/28/2023 ROOPA Harris CNP 06/18/2023 1:38 PM Length of Stay (Days): 2 GMLOS: No GMLOS Documented [facility] 06-20-2023 Note Formatting of this n ote is different from the original. Images from the original note were not included. Care Management Progress Note Transfer from T2- neuro work up- need final recs- has pcp - script coverage and transport home- wants to cont to work- PT eval pending- PO AB for sinusitis- home today vs 24 . Discharge Milestones and Delays Expected Date/Time: 06/21/[address] discharge order Complete med reconciliation Case mgmt discharge readiness Clinical Stability Diagnsotic Workup Expected Discharge History Expected Date/Time Set By Reviewed At 06/21/2023 Almaz De La Garza RN 06/20/2023 8:48 AM 06/28/2023 Narda Merlos RN 06/19/2023 7:58 AM 06/28/2023 ROOPA Harris CNP 06/18/2023 1:38 PM Length of Stay (Days): 2 GMLOS: No GMLOS Documented [facility] 06-19-2023 Note Formatting of this n ote might be different from the original. Patients PCP office is located in [facility]. They do have Neurology in same [facility] however it is scheduling into January for new patients. Moses try to find closer follow up. [facility] 06-19-2023 Note Formatting of this n ote might be different from the original. Patients PCP office is located in [facility]. They do have Neurology in same building however it is scheduling into January for new patients. Moses try to find closer follow up. [facility] 06-19-2023 Note PROGRESS NOTE. CAROLA Clarke SERVICE Patient Name:Roney Small Patient : 1960 Acct: [id number] Date of Admission: 06/18/2023 Room/Bed: T2-225/T2225 A PCP: [facility] Patient location ICU Remains in the hospital due to persistent unresolved acute issues, Chief complaint: L arm weakness New Complain: No documented events overnight. SBP have been at goal. A1C 5.5, LDL 115. Upon seeing him this morning he was looking good. States that he is feeling better. Denies any worsening of the L arm. Awaiting post thrombolytic imaging. Sedation:No Diet/TF:regular Lipscomb: No VTE prophylaxis: YES SCDs Antithrombotic therapy in first 24 hrs: YES TNK Statin therapy for stroke stroke patients: High intensity Anticoagulation on AF patients: N/A no history of AF Activity: PT/OT after 24 hours Disposition: likely home Current Hospital Medications: Current Facility-Administered Medications: acetaminophen (Tylenol) tablet 650 mg, 650 mg, Oral, q6h PRN OR acetaminophen (Tylenol) suppository 650 mg, 650 mg, Rectal, q6h PRN, Josee Acierno, BUSINESS RISK CONSULTANT - MANAGING DIRECTOR amoxicillin-clavulanate (Augmentin) 875-125 MG per tablet 1 tablet, 875 mg, Oral, 2 times per day, Josee Acierno, BUSINESS RISK CONSULTANT - MANAGING DIRECTOR, 1 tablet at 06/19/23 0820 atorvastatin (Lipitor) tablet 40 mg, 40 mg, Oral, Daily, Josee Acierno, BUSINESS RISK CONSULTANT - MANAGING DIRECTOR, 40 mg at 06/19/23 0820 bisacodyl (Dulcolax) suppository 10 mg, 10 mg, Rectal, Daily PRN, Josee Acierno, BUSINESS RISK CONSULTANT - MANAGING DIRECTOR folic acid (Folvite) tablet 1 mg, 1 mg, Oral, Daily, Josee Acierno, BUSINESS RISK CONSULTANT - MANAGING DIRECTOR, 1 mg at 06/19/23 0820 hydrALAZINE (Apresoline) injection 10 mg, 10 mg, IntraVENous, q1h PRN, Josee Acierno, BUSINESS RISK CONSULTANT - MANAGING DIRECTOR ipratropium-albuterol (Duo-Neb) 0.5-2.5 mg/3 mL nebulizer solution 3 mL, 3 mL, Nebulization, q4h PRN, Josee Acierno, BUSINESS RISK CONSULTANT - MANAGING DIRECTOR labetalol (Normodyne,Trandate) injection 10 mg, 10 mg, IntraVENous, q10 min PRN, Josee Acierno, BUSINESS RISK CONSULTANT - MANAGING DIRECTOR ondansetron ODT (Zofran-ODT) disintegrating tablet 4 mg, 4 mg, Oral, q8h PRN OR ondansetron (Zofran) injection 4 mg, 4 mg, IntraVENous, q6h PRN, Josee Acierno, BUSINESS RISK CONSULTANT - MANAGING DIRECTOR polyethylene glycol (PEG) 3350 (Miralax) packet 17 g, 17 g, Oral, Daily PRN, Josee Acierno, BUSINESS RISK CONSULTANT - MANAGING DIRECTOR sodium chloride 0.9 % infusion, 5-250 mL/hr, IntraVENous, PRN, Josee Acierno, BUSINESS RISK CONSULTANT - MANAGING DIRECTOR sodium chloride 0.9 % infusion, 75 mL/hr, IntraVENous, Continuous, Josee Acierno, BUSINESS RISK CONSULTANT - MANAGING DIRECTOR, Last Rate: 75 mL/hr at 06/19/23 0432, 75 mL/hr at 06/19/23 0432 sodium chloride 0.9% (NS) flush 5-40 mL, 5-40 mL, IntraVENous, q12h, Josee Acierno, BUSINESS RISK CONSULTANT - MANAGING DIRECTOR, 10 mL at 06/19/23 0208 sodium chloride 0.9% (NS) flush 5-40 mL, 5-40 mL, IntraVENous, PRN, Josee Acierno, BUSINESS RISK CONSULTANT - MANAGING DIRECTOR thiamine (Vitamin B1) tablet 100 mg, 100 mg, Oral, Daily, Josee Acierno, BUSINESS RISK CONSULTANT - MANAGING DIRECTOR, 100 mg at 06/19/23 0820 Continuous Infusions: sodium chloride, 75 mL/hr, Last Rate: 75 mL/hr (06/19/23 0432) Allergies: Patient has no known allergies. Review of Systems Unable to perform ROS: Acuity of condition Objective: Telemetry: Arrhythmia:No Physical Examination: Patient Vitals for the past 8 hrs: BP Temp Pulse Resp SpO2 06/19/23 1000 142/91 -- 89 22 96 % 06/19/23 0900 156/95 -- 77 14 96 % 06/19/23 0800 152/69 36.3 ?C (97.4 ?F) 64 13 96 % 06/19/23 0700 151/85 -- 71 (!) 11 93 % 06/19/23 0600 138/91 -- 65 (!) 10 95 % 06/19/23 0500 145/90 -- 74 14 93 % I/O last 3 completed shifts: In: 1089 [I.V.:1089] Out: 900 [Urine:900] General Physical Examination: General:male HEENT:Normocephalic, atraumaticl CV: S1+S2, RRR, no MRG. Pulm:CTA b/l, unlabored Abdomen: Soft NT/ND. BS + Skin: Intact without ulcers, breakdowns or discoloration Extremities: normal with no edema or cyanosis Orthopedic limitation; N/A Pulses: Intact peripherally Carotid auscultation :No bruits Neurological Examination: Higher Functions: Mental Status Exam: Level of Alertness:Awake Orientation: Normal toself, time, place Memory: Normal Fund of Knowledge: Normal Language: Normal Dysarthria not present Cranial Nerves: -II Visual acuity: normal -II Visualfields: normal -III Pupils (~ 3 mm OD, 3 mm OU) equal, round, reactive to light -III-IV- Extraocular Movements: intact -Nystagmus not present -Saccades and pursuits normal -V Facial sensation: intact Corneal's Intact bilateral -VII Facial strength:intact -VIII Hearing: intact -IX-X - Gag reflex present -X Palate: intact -XI Shoulder shrug: intact -XII Tongue movement: not participant MotorExamination: Tone after evaluation of 4 limbs, the following findings applied: Normal all limbs -Bulk: normal -Muscle Stretch afterevaluation of all limbs, and axial musculature the following findings applied: Drift: absent -Reflexes: after evaluation of 4 limbs, the following findings applied ; normal all limbs -Plantar responce: Flexor bilaterally Sensory Intact to light touch, pain / temperature, proprioception, Coordination: (more content not included)... [facility] 06-19-2023 Note Formatting of this n ote might be different from the original. Care Managment Initial Assessment Date: 06/19/2023 Patient Name: Roney Small : 1960 Patient Information Source of Information: Patient, Patient Content Manager Name/Contact Information: Emilee Doll Significant Other [phone] Cognition/Language: WFL - Within Functional Limits Permission given to speak with patient security representative/caregiver as indicated: Yes Confirmation of Payer with patient/family: Yes Payer Name: [employer] [place]: No Confirmation of Primary Care Physician: Confirmed PCP Name: Tamy Hernandez Seen in last 2 years?: Yes Primary Caregiver: Self If assistance needed, confirmed caregiver ready, willing and able to care for patient at discharge: Confirmed with: Living Arrangements Current Residence: House Number of Floors 1 Number of Entry Steps: 2 Bed/Bath Levels: Both first floor Facility: Facility Name: Plan to Return: Lives with: Spouse/significant other Support Systems: Spouse/significant other, Family members, Friends/neighbors Activities of Daily Living Ambulation: Independent Bathing/Dressing: Independent Elimination/Continence/Toileting : Independent Feeding: Independent Who Assists with Activities of Daily Living: Instrumental Activities of Daily Living Prescription Coverage: Yes Pharmacy Used: [facility] [address] [place] [address] Medication Management: Independent Transportation/Shopping: Independent Transportation Mode: Car Needs Assistance with Transportation at Discharge: No Meal Preparation: Independent Laundry/Cleaning: Independent Finances/Bill Paying: Independent Communication: Independent Types of Care Services/Equipment Utilized Care Services: Dialysis Type: NA Durable Medical Equipment: Patient's Goal/Discharge Plan Patient expects to be discharged to: Home Discharge Planning Actions: Continue to follow Patient's Choice Rights and [employer] and Collaborative Relationships Disclosed as Indicated for Post-Acute Care: Interdisciplinary Team Engagement: PT/OT Social Work Referral for: Additional Information: Chart reviewed. Patient admitted to [facility] ICU for acute ischemic stroke s/p TNK 06/18/2023. Consults to IP CONSULT TO CASE MANAGEMENT IP CONSULT TO NEUROLOGY Initial Assessment: PPE worn. Spoke with patient and girlfriend at bedside. Introduced myself and role as TCC. IA complete. Patient personal information confirmed. Patient from home with s/o, independent, employed, and drives. Patient has insurance, PCP and prescription coverage. Discussed discharge planning. Patient works-- would be barrier to HHC. Patient would prefer to not go to [facility] unless absolutely necessary. Discharge Planning Barrier: PT/OT pending. Discharge Plan: Home. Awaiting PT/OT eval, clinical stability and medical clearance. Will continue to follow. Narda Merlos RN [facility] 06-19-2023 Note Formatting of this n ote might be different from the original. Care Managment Initial Assessment Date: 06/19/2023 Patient Name: Roney Small : 1960 Patient Information Source of Information: Patient, Patient Content Manager Name/Contact Information: Emilee Lavon Significant Other [phone] Cognition/Language: WFL - Within Functional Limits Permission given to speak with patient security representative/caregiver as indicated: Yes Confirmation of Payer with patient/family: Yes Payer Name: [employer] [place]: No Confirmation of Primary Care Physician: Confirmed PCP Name: Tamy Hernandez Seen in last 2 years?: Yes Primary Caregiver: Self If assistance needed, confirmed caregiver ready, willing and able to care for patient at discharge: Confirmed with: Living Arrangements Current Residence: House Number of Floors 1 Number of Entry Steps: 2 Bed/Bath Levels: Both first floor Facility: Facility Name: Plan to Return: Lives with: Spouse/significant other Support Systems: Spouse/significant other, Family members, Friends/neighbors Activities of Daily Living Ambulation: Independent Bathing/Dressing: Independent Elimination/Continence/Toileting : Independent Feeding: Independent Who Assists with Activities of Daily Living: Instrumental Activities of Daily Living Prescription Coverage: Yes Pharmacy Used: [facility] [place], [place] - [address] [place] [address] Medication Management: Independent Transportation/Shopping: Independent Transportation Mode: Car Needs Assistance with Transportation at Discharge: No Meal Preparation: Independent Laundry/Cleaning: Independent Finances/Bill Paying: Independent Communication: Independent Types of Care Services/Equipment Utilized Care Services: Dialysis Type: NA Durable Medical Equipment: Patient's Goal/Discharge Plan Patient expects to be discharged to: Home Discharge Planning Actions: Continue to follow Patient's Choice Rights and [employer] and Collaborative Relationships Disclosed as Indicated for Post-Acute Care: Interdisciplinary Team Engagement: PT/OT Social Work Referral for: Additional Information: Chart reviewed. Patient admitted to [facility] ICU for acute ischemic stroke s/p TNK 06/18/2023. Consults to IP CONSULT TO CASE MANAGEMENT IP CONSULT TO NEUROLOGY Initial Assessment: PPE worn. Spoke with patient and girlfriend at bedside. Introduced myself and role as TCC. IA complete. Patient personal information confirmed. Patient from home with s/o, independent, employed, and drives. Patient has insurance, PCP and prescription coverage. Discussed discharge planning. Patient works-- would be barrier to HHC. Patient would prefer to not go to [facility] unless absolutely necessary. Discharge Planning Barrier: PT/OT pending. Discharge Plan: Home. Awaiting PT/OT eval, clinical stability and medical clearance. Will continue to follow. Narda Merlos RN [facility] 06-19-2023 Note ICU Progress Note Name: Roney Small : 1960(63 y.o.) Date: 06/19/23 Team: MICU Attending: Dr. 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 NIH 3 (LUE/LLE weakness, +ataxia). Stroke team called. CTH with no acute intracranial abnormalities, but complete opacification of the left maxillary sinus with widening of the ostiomeatal unit. CTA with verena atherosclerotic plaque at the carotid bifurcation without significant narrowing and patent carotid and vertebral arteries. Pt given TNK at ~11:09am. Patient transferred and admitted to T2 ICU for further stroke w/u and management. NIH 1 on arrival to ICU for slight upward drift of LUE. Interval Events: No acute issues overnight per nursing. NIH 0. Pt denies blurred vision, double vision, SOB, CP, nausea, vomiting. Scheduled Meds:amoxicillin-clavulanate, 875 mg, Oral, 2 times per day aspirin, 81 mg, Oral, Daily atorvastatin, 40 mg, Oral, Daily clopidogrel, 75 mg, Oral, Daily enoxaparin, 40 mg, SubCUTAneous, q24h folic acid, 1 mg, Oral, Daily sodium chloride 0.9%, 5-40 mL, IntraVENous, q12h thiamine, 100 mg, Oral, Daily Continuous Infusions:sodium chloride, 75 mL/hr, Last Rate: 75 mL/hr (06/19/23 0432) Objective: Last Vitals: BP MAP 156/93 (06/19/23 1500) 110 (06/19/23 1500) Arterial BP MAP Temp 36.3 ?C (97.4 ?F) (06/19/23 0800) Pulse 71 (06/19/23 1500) Resp 15 (06/19/23 1500) SpO2 97 % (06/19/23 1500) Weight BMI There is no height or weight on file to calculate BMI. I/O: 06/18 0700 - 06/19 0659 In: 1089 [I.V.:1089] Out: 900 [Urine:900] Oxygen Delivery: Invasive Lines / Tubes / Drains: Peripheral IV 06/18/23 Right Antecubital (Active) Number of days: 1 Peripheral IV 06/18/23 Left Antecubital (Active) Number of days: 1 Wounds: Constitutional: General Appearance [x]WDWN []Obese []Cachectic []Thin []Ill Eyes: Inspection of Pupils/Irises Pupils round and react: [x]Yes []No Sclera: []Icteric [x]Non-Icteric Inspection of Conjunctiva/Lids Conjunctiva: []Injected [x]Non-Injected Lids: [x]Intact []Lesion Present ENT/Mouth: External Inspection of ears/nose [] Normal [] Scar/Lesion/Mass Inspection of teeth/lips/gums Dentition: [x][place] Teeth []Dentures Lips/Gums: []Intact []Lesion Present Mucosa: [][place] [x]Moist []Dry Neck: External Appearance Overall Appearance: [x]Normal []Lesion/Mass/Crepitus Present Trachea midline: [x]Yes []No Thyroid []Normal []Enlarged []Tender []Mass []Absent Respiratory: Respiratory effort []Labored [x]Non-Labored [] Mechanically-Ventilated Auscultation [x]Clear []Crackles []Wheezes []Rhonchi Cardiovascular: Auscultation Rate: [x]Regular []Irregular []Tachycardia []Bradycardia Rhythm: [x]Regular []Irregular Murmur: []Present [x]Absent Extremities Peripheral Edema: []Present [x]Absent Varicosities: []Present [x]Absent Gastrointestinal: Abdomen Palpation: [x]Soft []Firm []Tender []Non-Tender []Distended [x]Non-distended Mass: []Present [x]Absent Bowel Sounds: [x]Present []Absent Hernia: []Present [x]Absent Liver/Spleen: []Hepatosplenomegaly []Organomegaly Absent Musculoskeletal: Inspection of Digits and Nails Cyanosis: []Present [x]Absent Clubbing: []Present [x]Absent Ischemia: []Present [x]Absent Infection: []Present []Absent Extremities REYES Equally: YES ([]RUE []RLE []LUE []LLE) Strength/Tone: Intact and Normal ([]RUE []RLE []LUE []LLE) Skin: Inspection [x]Normal []Rash []Lesion []Ulcer Palpation [x]Warm []Cool []Dry []Clammy []Nodules []Induration []Skin-tightening Cap-Refill: [x] <3 sec [] >3 seconds (delayed) Neurologic: GCS EYE: 4 - Opens spontaneously GCS MOTOR: 6 - Obeys commands for movement GCS VERBAL: 5 - Oriented to person, place, time Total GCS: 15 [] Sensation grossly intact Psych: Mental Status Alert: [x]Yes [] No Oriented: []x0 []X1 []X2 [x]x3 Mood/Affect [x]Normal []Flat []Agitated []Depressed []Anxious []Calm []Sedated []NAD [facility] within last 24 hours- BMP: Recent Labs 06/19/23204 NA 133* K 4.2 CL 105 CO2 21* BUN 16 CREATININE 0.69 CALCIUM 8.9 MG 2.0 PHOS 4.1 LFTs: Recent Labs 06/19/23204 AST 29 ALT 20 PROT 7.2 ALBUMIN 3.9 BILITOT 0.9 ALKPHOS 70 Glucose: Recent Labs 06/19/23204 GLUCOSE 102* Procal: No results for input(s): PROCAL in the last 72 hours. CBC: Recent Labs 06/19/23204 WBC 7.0 HGB 14.9 HCT 44.4 PLT 211 MCV 92.9 RDW 12.7 ABGs: No results for input(s): PHART, SHY7GXN, PO2ART, SHH9TDL, SO2ART, Z5NARTDT in the last 72 hours. Lactic Acid: No results for input(s): LACTATE in the last 72 hours. INR: No results for input(s): INR in the last 72 hours. Ca (more content not included)... [facility] 06-18-2023 Note Internal Medicine: M ICU Initial History and Physical Name: Roney Small : 1960(63 y.o.) Date: 06/18/23 Attending: Dr. 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 NIH 3 (LUE/LLE weakness, +ataxia). Stroke team called. CTH with no acute intracranial abnormalities, but complete opacification of the left maxillary sinus with widening of the ostiomeatal unit. CTA with verena atherosclerotic plaque at the carotid bifurcation without significant narrowing and patent carotid and vertebral arteries. Pt given TNK at ~11:09am. Patient transferred and admitted to T2 ICU for further stroke w/u and management. NIH 1 on arrival to ICU for slight upward drift of LUE. No past medical history on file. No past surgical history on file. No family history on file. Social History Socioeconomic History Marital status: Single Spouse name: Not on file Number of children: Not on file Years of education: Not on file Highest education level: Not on file Occupational History Not on file Tobacco Use Smoking status: Not on file Smokeless tobacco: Not on file Substance and Sexual Activity Alcohol use: Not on file Drug use: Not on file Sexual activity: Not on file Other Topics Concern Not on file Social History Narrative Not on file Social Determinants of Health Financial Resource Strain: Not on file Food Insecurity: Not on file Transportation Needs: Not on file Physical Activity: Not on file Stress: Not on file Social Connections: Not on file Intimate Partner Violence: Not on file Housing Stability: Not on file Not on File Prior to Admission medications Not on File Objective: Oxygen Delivery: VITALS: BP (!) 166/89 Pulse 84 Temp 36.1 ?C (97 ?F) (Temporal) Resp 16 SpO2 97% CURRENT PULSE OXIMETRY: SpO2: 97 % Review of Systems Constitutional: Negative for chills, fatigue and fever. HENT: Negative for rhinorrhea and sneezing. Eyes: Negative for photophobia, pain, redness and visual disturbance. Respiratory: Negative for cough, choking, shortness of breath and wheezing. Cardiovascular: Negative for chest pain, palpitations and leg swelling. Gastrointestinal: Negative for abdominal distention, blood in stool, constipation, diarrhea, nausea and vomiting. Endocrine: Negative for polydipsia, polyphagia and polyuria. Genitourinary: Negative for dysuria, frequency and urgency. Neurological: Negative for tremors, weakness, light-headedness, numbness and headaches. Psychiatric/Behavioral: Negative for agitation and confusion. Constitutional: General Appearance [x]WDWN []Obese []Cachectic []Thin []Ill Eyes: Inspection of Pupils/Irises Pupils round and react: [x]Yes []No Sclera: []Icteric [x]Non-Icteric Inspection of Conjunctiva/Lids Conjunctiva: []Injected [x]Non-Injected Lids: []Intact []Lesion Present ENT/Mouth: External Inspection of ears/nose [x] Normal [] Scar/Lesion/Mass Inspection of teeth/lips/gums Dentition: [x][place] Teeth []Dentures Lips/Gums: []Intact []Lesion Present Mucosa: [][place] [x]Moist []Dry Neck: External Appearance Overall Appearance: [x]Normal []Lesion/Mass/Crepitus Present Trachea midline: [x]Yes []No Thyroid [x]Normal []Enlarged []Tender []Mass []Absent Respiratory: Respiratory effort []Labored [x]Non-Labored [] Mechanically-Ventilated Auscultation [x]Clear []Crackles []Wheezes [][place] Cardiovascular: Auscultation Rate: [x]Regular []Irregular []Tachycardia []Bradycardia Rhythm: [x]Regular []Irregular Murmur: []Present [x]Absent Extremities Peripheral Edema: []Present [x]Absent Varicosities: []Present [x]Absent Gastrointestinal: Abdomen Palpation: [x]Soft []Firm []Tender []Non-Tender []Distended [x]Non-distended Mass: []Present [x]Absent Bowel Sounds: [x]Present []Absent Hernia: []Present [x]Absent Liver/Spleen: []Hepatosplenomegaly []Organomegaly Absent Musculoskeletal: Inspection of Digits and Nails Cyanosis: []Present [x]Absent Clubbing: []Present [x]Absent Ischemia: []Present [x]Absent Infection: []Present []Absent Extremities REYES Equally: YES ([]RUE []RLE []LUE []LLE) Strength/Tone: Intact and Normal ([]RUE []RLE []LUE []LLE) Skin: Inspection [x]Normal []Rash []Lesion []Ulcer Palpation [x]Warm []Cool []Dry []Clammy []Nodules []Induration []Skin-tightening Cap-Refill: [] <3 sec [] >3 seconds (delayed) Neurologic: GCS EYE: 4 - Opens spontaneously GCS MOTOR: 6 - Obeys commands for movement GCS VERBAL: 5 - Oriented to person, place, time Total GCS: 15 [x] Sensation grossly intact Psych: Mental Status Alert: [x]Yes [] No Oriented: []x0 []X1 []X2 [x]x3 Mood/Affect []Normal []Flat []Agitated []Depressed [ (more content not included)... [facility] 06-18-2023 Plan of care note Problem: Knowledge Deficit Goal: Patient/family/caregiver demonstrates understanding of disease process, treatment plan, medications, and discharge instructions Outcome: Progressing Problem: Potential for Compromised Skin Integrity Goal: Skin Integrity is Maintained or Improved Outcome: Progressing Problem: Urinary Incontinence Goal: Perineal skin integrity is maintained or improved Outcome: Progressing The patient is Moderately Stable - Low risk of patient condition declining or worsening The patient's goals for the shift include The clinical goals for the shift include Over the shift, the patient did not make progress toward the following goals. Barriers to progression include bed rest order. Recommendations to address these barriers include time patient needs bedrest for 24 hours. [facility] 06-18-2023 Hospital Discharg e blanca Daniel RN - 06/18/2023 2:58 PM EST Refer to the Understanding Stroke Booklet given to you, written material provided to patient/family, addressing all signs & symptoms of a stroke, which are: sudden numbness or weakness of the face, arm or leg, especially on one side of the body sudden confusion sudden difficulty speaking or understanding sudden trouble seeing in one or both eyes sudden trouble walking,dizziness, loss of balance or coordination sudden severe headache with no known cause syncope or temporary loss of consciousness seizure Explained the need to call EMS ([phone]) immediately if signs & symptoms occur. Discussed medications that the patient is taking, will review medications again prior to discharge, risk factors, and the need for follow-up with a physician/BANK RECONCILIATOR/PA after discharge. Araceli Fair RN on 06/18/23 at 2:58 PM Discussed the patient s personal risk factors for Stroke /TIA with patient/family, and ways to reduce the risk for a recurrent stroke. Patient's personal risk factors which were identified are: [] High blood pressure [] High cholesterol [] Atrial fibrillation [] Diabetes [x] Smoking/e-cigarettes/vaping [] Smokeless tobacco [] Overweight [] Lack of Exercise [] Sleep apnea [] Prior heart disease or heart attack [x] Excessive alcohol use [] Use of illicit drugs [] Personal history of previous TIA or stroke [x] Family history of stroke or heart disease [] Carotid stenosis [] Heart failure [] Patent Foramen [place]vale [] Migraine [] Hormone replacement therapy [] Current (up to six weeks post ) [] Depression [] Sickle Cell [] Renal insufficiency - chronic [] None Refer to Understanding Stroke Booklet. Advised patient that risk for stroke/TIA can be reduced by modifying/controlling risk factors. Patient advised to take medications as prescribed, which will be detailed in the discharge instructions, and to not stop taking them without consulting a physician. In addition, pt. advised to maintain a healthy diet, exercise regularly and to not smoke. Araceli Fair RN on 06/18/23 at 2:58 PM Megha Carreno RN - 06/20/2023 12:43 PM EST As tolerated Megha Carreno RN - 06/20/2023 12:43 PM EST Heart healthy diet The following attachments cannot be sent through Care Everywhere.Aspirin, ADULT ([place])Clopidogrel, ADULT ([place])Amoxicillin and Clavulanate, ADULT ([place])Atorvastatin, ADULT ([place])documented in this encounter [facility] 06-18-2023 History and physical note Images from the original note were not included. Internal Medicine: MICU Initial History and Physical Name: Roney Small : 1960(63 y.o.) Date: 06/18/23 Attending: Dr. 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 NIH 3 (LUE/LLE weakness, +ataxia). Stroke team called. CTH with no acute intracranial abnormalities, but complete opacification of the left maxillary sinus with widening of the ostiomeatal unit. CTA with verena atherosclerotic plaque at the carotid bifurcation without significant narrowing and patent carotid and vertebral arteries. Pt given TNK at ~11:09am. Patient transferred and admitted to T2 ICU for further stroke w/u and management. NIH 1 on arrival to ICU for slight upward drift of LUE. No past medical history on file. No past surgical history on file. No family history on file. Social History Socioeconomic History Marital status: Single Spouse name: Not on file Number of children: Not on file Years of education: Not on file Highest education level: Not on file Occupational History Not on file Tobacco Use Smoking status: Not on file Smokeless tobacco: Not on file Substance and Sexual Activity Alcohol use: Not on file Drug use: Not on file Sexual activity: Not on file Other Topics Concern Not on file Social History Narrative Not on file Social Determinants of Health Financial Resource Strain: Not on file Food Insecurity: Not on file Transportation Needs: Not on file Physical Activity: Not on file Stress: Not on file Social Connections: Not on file Intimate Partner Violence: Not on file Housing Stability: Not on file Not on File Prior to Admission medications Not on File Objective: Oxygen Delivery: VITALS: BP (!) 166/89 Pulse 84 Temp 36.1 C (97 F) (Temporal) Resp 16 SpO2 97% CURRENT PULSE OXIMETRY: SpO2: 97 % Review of Systems Constitutional: Negative for chills, fatigue and fever. HENT: Negative for rhinorrhea and sneezing. Eyes: Negative for photophobia, pain, redness and visual disturbance. Respiratory: Negative for cough, choking, shortness of breath and wheezing. Cardiovascular: Negative for chest pain, palpitations and leg swelling. Gastrointestinal: Negative for abdominal distention, blood in stool, constipation, diarrhea, nausea and vomiting. Endocrine: Negative for polydipsia, polyphagia and polyuria. Genitourinary: Negative for dysuria, frequency and urgency. Neurological: Negative for tremors, weakness, light-headedness, numbness and headaches. Psychiatric/Behavioral: Negative for agitation and confusion. Constitutional: General Appearance [x]WDWN []Obese []Cachectic []Thin []Ill Eyes: Inspection of Pupils/Irises Pupils round and react: [x]Yes []No Sclera: []Icteric [x]Non-Icteric Inspection of Conjunctiva/Lids Conjunctiva: []Injected [x]Non-Injected Lids: []Intact []Lesion Present ENT/Mouth: External Inspection of ears/nose [x] Normal [] Scar/Lesion/Mass Inspection of teeth/lips/gums Dentition: [x][place] Teeth []Dentures Lips/Gums: []Intact []Lesion Present Mucosa: [][place] [x]Moist []Dry Neck: External Appearance Overall Appearance: [x]Normal []Lesion/Mass/Crepitus Present Trachea midline: [x]Yes []No Thyroid [x]Normal []Enlarged []Tender []Mass []Absent Respiratory: Respiratory effort []Labored [x]Non-Labored [] Mechanically-Ventilated Auscultation [x]Clear []Crackles []Wheezes [][place]honchi Cardiovascular: Auscultation Rate: [x]Regular []Irregular []Tachycardia []Bradycardia Rhythm: [x]Regular []Irregular Murmur: []Present [x]Absent Extremities Peripheral Edema: []Present [x]Absent Varicosities: []Present [x]Absent Gastrointestinal: Abdomen Palpation: [x]Soft []Firm []Tender []Non-Tender []Distended [x]Non-distended Mass: []Present [x]Absent Bowel Sounds: [x]Present []Absent Hernia: []Present [x]Absent Liver/Spleen: []Hepatosplenomegaly []Organomegaly Absent Musculoskeletal: Inspection of Digits and Nails Cyanosis: []Present [x]Absent Clubbing: []Present [x]Absent Ischemia: []Present [x]Absent Infection: []Present []Absent Extremities REYES Equally: YES ([]RUE []RLE []LUE []LLE) Strength/Tone: Intact and Normal ([]RUE []RLE []LUE []LLE) Skin: Inspection [x]Normal []Rash []Lesion []Ulcer Palpation [x]Warm []Cool []Dry []Clammy []Nodules []Induration []Skin-tightening Cap-Refill: [] <3 sec [] >3 seconds (delayed) Neurologic: GCS EYE: 4 - Opens spontaneously GCS MOTOR: 6 - Obeys commands for movement GCS VERBAL: 5 - Oriented to person, place, time Total GCS: 15 [x] Sensation grossly intact Psych: Mental Status Alert: [x]Yes [] No Oriented: []x0 []X1 []X2 [x]x3 Mood/Affect []Normal []Flat []Agitated []Depressed []Anxious []Calm []Sedated [x][facility] Labs within last 24 hours- BMP: No results for input(s): NA, K, CL, CO2, BUN, CREATININE, CALCIUM, MG, PHOS in the last 72 hours. LFTs: No results for input(s): AST, ALT, PROT, ALBUMIN, BILITOT, BILIRUBINU, ALKPHOS, LIPASE in the last 72 hours. Glucose: No results for input(s): GLUCOSE, POCGLU, BHYDRXBUT in the last 72 hours. Procal: No results for input(s): PROCAL in the last 72 hours. CBC: No results for input(s): WBC, HGB, HCT, PLT, MCV, RDW in the last 72 hours. ABGs: No results for input(s): PHART, GTF2PHC, PO2ART, ATX0YFQ, SO2ART, [id number] in the last 72 hours. Lactic Acid: No results for input(s): LACTATE in the last 72 hours. INR: No results for input(s): INR in the last 72 hours. Cardiac Injury Profile: No results for input(s): CKTOTAL, CKMB, TROPONINI in the last 72 hours. Labs in Last 3 months: No results found for: TSH, VITD25, PSA, INR, GLUF Microbiology- Urine Cx: No results found for: URINECX Blood Cx: No results found for: BLOODCX Sputum Cx: No results found for: RESPCULT Gram Stain: No results found for: LABGRAM PNA PCR: No results found for: HUMANMETAPNE COVID19: No results found for: COVID19 Legionella Ag: No results found for: LEGIONELLAPN Strep Ag: No results for input(s): STREPPNEUMO in the last 72 hours. Imaging- CTH 06/18 (from OSH): No appreciable acute intracranial abnormality. Complete opacification of the Left maxillary sinus with widening of the osteomeatal unit. 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 Recommend ENT f/u for further eval. CTA Head/Neck 06/18: Bilateral atherosclerotic plaque at the carotid bifurcation w/u significant narrowing. Patent carotid and vertebral arteries of the neck . Assessment and Plan: Principal Problem: Stroke of unknown cause (HCC) Assessment: Concern for acute ischemic stroke s/p TNK Left maxillary sinusitis Hx Tobacco Use Hx ETOH use Debility FEN Full Code Plan: Neuro CC following. Maintaining SBP 180/DBP <105. No antiplt/antithrombotic x24 hrs, bedrest x24hrs, check lipid panel, hgb A1C, goal euglycemia/normothermia. Imagining at 24hrs post TNK. ECHO & EKG ordered. Found incidentally on CTH--MRI brain ordered for tomorrow for stroke f/u. Consider consulting ENT depending on results, will treat with augmentin. Prn nebs ordered, pt stable on RA Start folic/thiamine. Consider adding CIWA protcol/prn ativan if needed. Monitor for withdrawal. PT/OT after 24hr bedrest Coughing with water on bedside swallow-will get formal speech eval. Full Code GI Prophylaxis: NA DVT Prophylaxis: SCDs Disposition: Admit to ICU Plan discussed with Dr. Collins Critical Care Time: 35mins Total critical care time caring for this patient with life threatening, unstable organ failure, including direct patient contact, management of life support systems, review of data including imaging and labs, discussions with other team members and physicians, excluding procedures. [facility] 06-18-2023 History and physical note Images from the original note were not included. Internal Medicine: MICU Initial History and Physical Name: Roney Small : 1960(63 y.o.) Date: 06/18/23 Attending: Dr. 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 NIH 3 (LUE/LLE weakness, +ataxia). Stroke team called. CTH with no acute intracranial abnormalities, but complete opacification of the left maxillary sinus with widening of the ostiomeatal unit. CTA with verena atherosclerotic plaque at the carotid bifurcation without significant narrowing and patent carotid and vertebral arteries. Pt given TNK at ~11:09am. Patient transferred and admitted to T2 ICU for further stroke w/u and management. NIH 1 on arrival to ICU for slight upward drift of LUE. No past medical history on file. No past surgical history on file. No family history on file. Social History Socioeconomic History Marital status: Single Spouse name: Not on file Number of children: Not on file Years of education: Not on file Highest education level: Not on file Occupational History Not on file Tobacco Use Smoking status: Not on file Smokeless tobacco: Not on file Substance and Sexual Activity Alcohol use: Not on file Drug use: Not on file Sexual activity: Not on file Other Topics Concern Not on file Social History Narrative Not on file Social Determinants of Health Financial Resource Strain: Not on file Food Insecurity: Not on file Transportation Needs: Not on file Physical Activity: Not on file Stress: Not on file Social Connections: Not on file Intimate Partner Violence: Not on file Housing Stability: Not on file Not on File Prior to Admission medications Not on File Objective: Oxygen Delivery: VITALS: BP (!) 166/89 Pulse 84 Temp 36.1 C (97 F) (Temporal) Resp 16 SpO2 97% CURRENT PULSE OXIMETRY: SpO2: 97 % Review of Systems Constitutional: Negative for chills, fatigue and fever. HENT: Negative for rhinorrhea and sneezing. Eyes: Negative for photophobia, pain, redness and visual disturbance. Respiratory: Negative for cough, choking, shortness of breath and wheezing. Cardiovascular: Negative for chest pain, palpitations and leg swelling. Gastrointestinal: Negative for abdominal distention, blood in stool, constipation, diarrhea, nausea and vomiting. Endocrine: Negative for polydipsia, polyphagia and polyuria. Genitourinary: Negative for dysuria, frequency and urgency. Neurological: Negative for tremors, weakness, light-headedness, numbness and headaches. Psychiatric/Behavioral: Negative for agitation and confusion. Constitutional: General Appearance [x]WDWN []Obese []Cachectic []Thin []Ill Eyes: Inspection of Pupils/Irises Pupils round and react: [x]Yes []No Sclera: []Icteric [x]Non-Icteric Inspection of Conjunctiva/Lids Conjunctiva: []Injected [x]Non-Injected Lids: []Intact []Lesion Present ENT/Mouth: External Inspection of ears/nose [x] Normal [] Scar/Lesion/Mass Inspection of teeth/lips/gums Dentition: [x][place] Teeth []Dentures Lips/Gums: []Intact []Lesion Present Mucosa: [][place] [x]Moist []Dry Neck: External Appearance Overall Appearance: [x]Normal []Lesion/Mass/Crepitus Present Trachea midline: [x]Yes []No Thyroid [x]Normal []Enlarged []Tender []Mass []Absent Respiratory: Respiratory effort []Labored [x]Non-Labored [] Mechanically-Ventilated Auscultation [x]Clear []Crackles []Wheezes [][place] Cardiovascular: Auscultation Rate: [x]Regular []Irregular []Tachycardia []Bradycardia Rhythm: [x]Regular []Irregular Murmur: []Present [x]Absent Extremities Peripheral Edema: []Present [x]Absent Varicosities: []Present [x]Absent Gastrointestinal: Abdomen Palpation: [x]Soft []Firm []Tender []Non-Tender []Distended [x]Non-distended Mass: []Present [x]Absent Bowel Sounds: [x]Present []Absent Hernia: []Present [x]Absent Liver/Spleen: []Hepatosplenomegaly []Organomegaly Absent Musculoskeletal: Inspection of Digits and Nails Cyanosis: []Present [x]Absent Clubbing: []Present [x]Absent Ischemia: []Present [x]Absent Infection: []Present []Absent Extremities REYES Equally: YES ([]RUE []RLE []LUE []LLE) Strength/Tone: Intact and Normal ([]RUE []RLE []LUE []LLE) Skin: Inspection [x]Normal []Rash []Lesion []Ulcer Palpation [x]Warm []Cool []Dry []Clammy []Nodules []Induration []Skin-tightening Cap-Refill: [] <3 sec [] >3 seconds (delayed) Neurologic: GCS EYE: 4 - Opens spontaneously GCS MOTOR: 6 - Obeys commands for movement GCS VERBAL: 5 - Oriented to person, place, time Total GCS: 15 [x] Sensation grossly intact Psych: Mental Status Alert: [x]Yes [] No Oriented: []x0 []X1 []X2 [x]x3 Mood/Affect []Normal []Flat []Agitated []Depressed []Anxious []Calm []Sedated [x][facility] Labs within last 24 hours- BMP: No results for input(s): NA, K, CL, CO2, BUN, CREATININE, CALCIUM, MG, PHOS in the last 72 hours. LFTs: No results for input(s): AST, ALT, PROT, ALBUMIN, BILITOT, BILIRUBINU, ALKPHOS, LIPASE in the last 72 hours. Glucose: No results for input(s): GLUCOSE, POCGLU, BHYDRXBUT in the last 72 hours. Procal: No results for input(s): PROCAL in the last 72 hours. CBC: No results for input(s): WBC, HGB, HCT, PLT, MCV, RDW in the last 72 hours. ABGs: No results for input(s): PHART, WVD6YUE, PO2ART, QBG3SWM, SO2ART, [id number] in the last 72 hours. Lactic Acid: No results for input(s): LACTATE in the last 72 hours. INR: No results for input(s): INR in the last 72 hours. Cardiac Injury Profile: No results for input(s): CKTOTAL, CKMB, TROPONINI in the last 72 hours. Labs in Last 3 months: No results found for: TSH, VITD25, PSA, INR, GLUF Microbiology- Urine Cx: No results found for: URINECX Blood Cx: No results found for: BLOODCX Sputum Cx: No results found for: RESPCULT Gram Stain: No results found for: LABGRAM PNA PCR: No results found for: HUMANMETAPNE COVID19: No results found for: COVID19 Legionella Ag: No results found for: LEGIONELLAPN Strep Ag: No results for input(s): STREPPNEUMO in the last 72 hours. Imaging- CTH 06/18 (from OSH): No appreciable acute intracranial abnormality. Complete opacification of the Left maxillary sinus with widening of the osteomeatal unit. 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 Recommend ENT f/u for further eval. CTA Head/Neck 06/18: Bilateral atherosclerotic plaque at the carotid bifurcation w/u significant narrowing. Patent carotid and vertebral arteries of the neck . Assessment and Plan: Principal Problem: Stroke of unknown cause (HCC) Assessment: Concern for acute ischemic stroke s/p TNK Left maxillary sinusitis Hx Tobacco Use Hx ETOH use Debility FEN Full Code Plan: Neuro CC following. Maintaining SBP 180/DBP <105. No antiplt/antithrombotic x24 hrs, bedrest x24hrs, check lipid panel, hgb A1C, goal euglycemia/normothermia. Imagining at 24hrs post TNK. ECHO & EKG ordered. Found incidentally on CTH--MRI brain ordered for tomorrow for stroke f/u. Consider consulting ENT depending on results, will treat with augmentin. Prn nebs ordered, pt stable on RA Start folic/thiamine. Consider adding CIWA protcol/prn ativan if needed. Monitor for withdrawal. PT/OT after 24hr bedrest Coughing with water on bedside swallow-will get formal speech eval. Full Code GI Prophylaxis: NA DVT Prophylaxis: SCDs Disposition: Admit to ICU Plan discussed with Dr. Collins Critical Care Time: 35mins Total critical care time caring for this patient with life threatening, unstable organ failure, including direct patient contact, management of life support systems, review of data including imaging and labs, discussions with other team members and physicians, excluding procedures. documented in this encounter [facility] 06-18-2023 Consult note Associated Order (s): IP CONSULT TO NEUROLOGY INITIAL CONSULT NOTE. STROKE SERVICE Patient Name: Roney Small Patient : 1960 Acct: [id number] Date of Admission: 06/18/2023 Room/Bed: T2-225/T2-225 A PCP: David Sanz History of Present Ilness: 63 y.o. is right handed male with the chief Complaint of:L arm weakness/tingling 63yo M we are consulted for stroke. Patient from [facility] who was transferred after receiving thrombolytics. 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 He states that when he noticed it happened he was unable to function with the L hand as well and even though he knew he needed the hand to move, he couldn't make it do so. He denied any other weakness focality subjectively. On arrival to [place] he was given NIH of 3 for face, arm and leg on the L side. CTH unremarkable, CTA unremarkable. Decision for thrombolytics and [facility] transfer. Patient had no diagnosed medical problems. Takes a multivitamin daily. Daily tobacco smoker about 6-8 cigarettes. Daily ETOH consumption about 3-4 beers. Upon seeing him on his arrival to [facility] he was awake and pleasant. States that he thinks his arm is improving but something is still not fully normal. Denies any other complaints or focality of symptoms. Past Medical History: None Past Surgical History: @PSHN@ Home Medications: Prior to Admission medications Not on File Current Hospital Medications: Current Facility-Administered Medications: acetaminophen (Tylenol) tablet 650 mg, 650 mg, Oral, q6h PRN OR acetaminophen (Tylenol) suppository 650 mg, 650 mg, Rectal, q6h PRN, Josee Acierno, BUSINESS RISK CONSULTANT - MANAGING DIRECTOR atorvastatin (Lipitor) tablet 40 mg, 40 mg, Oral, Daily, Josee Acierno, BUSINESS RISK CONSULTANT - MANAGING DIRECTOR bisacodyl (Dulcolax) suppository 10 mg, 10 mg, Rectal, Daily PRN, Josee Acierno, BUSINESS RISK CONSULTANT - MANAGING DIRECTOR hydrALAZINE (Apresoline) injection 10 mg, 10 mg, IntraVENous, q1h PRN, Josee Acierno, BUSINESS RISK CONSULTANT - MANAGING DIRECTOR labetalol (Normodyne,Trandate) injection 10 mg, 10 mg, IntraVENous, q10 min PRN, Josee Acierno, BUSINESS RISK CONSULTANT - MANAGING DIRECTOR ondansetron ODT (Zofran-ODT) disintegrating tablet 4 mg, 4 mg, Oral, q8h PRN OR ondansetron (Zofran) injection 4 mg, 4 mg, IntraVENous, q6h PRN, Josee Acierno, BUSINESS RISK CONSULTANT - MANAGING DIRECTOR polyethylene glycol (PEG) 3350 (Miralax) packet 17 g, 17 g, Oral, Daily PRN, Josee Acierno, BUSINESS RISK CONSULTANT - MANAGING DIRECTOR sodium chloride 0.9 % infusion, 5-250 mL/hr, IntraVENous, PRN, Josee Acierno, BUSINESS RISK CONSULTANT - MANAGING DIRECTOR sodium chloride 0.9 % infusion, 75 mL/hr, IntraVENous, Continuous, Josee Acierno, BUSINESS RISK CONSULTANT - MANAGING DIRECTOR sodium chloride 0.9% (NS) flush 5-40 mL, 5-40 mL, IntraVENous, q12h, Josee Acierno, BUSINESS RISK CONSULTANT - MANAGING DIRECTOR sodium chloride 0.9% (NS) flush 5-40 mL, 5-40 mL, IntraVENous, PRN, Josee Acierno, BUSINESS RISK CONSULTANT - MANAGING DIRECTOR Continuous Infusions: sodium chloride, 75 mL/hr Allergies: Patient has no allergy information on record. Social History: TOBACCO: has no history on file for tobacco use. ETOH: has no history on file for alcohol use. RECREATIONAL DRUG USE: Social History Substance and Sexual Activity Drug Use Not on file Family History: Paternal stroke Review of Systems Unable to perform ROS: Acuity of condition Physical Examination: No data found. No intake/output data recorded. General Physical Examination: General: male HEENT:Normocephalic, atraumaticl CV: S1+S2, RRR, no MRG. Pulm:CTA b/l, unlabored Abdomen: Soft NT/ND. BS + Skin: Intact without ulcers, breakdowns or discoloration Extremities: normal with no edema or cyanosis Orthopedic limitation; N/A Pulses: Intact peripherally Carotid auscultation :No bruits Neurological Examination: Higher Functions: Mental Status Exam: Level of Alertness:Awake Orientation: Normal to self, time, place Memory: Normal Fund of Knowledge: Normal Language: Normal Dysarthria not present Cranial Nerves: -II Visual acuity: normal -II Visual calzada: normal -III Pupils (~ 3 mm OD, 3 mm OU) equal, round, reactive to light -III-IV- Extraocular Movements: intact -Nystagmus not present -Saccades and pursuits normal -V Facial sensation: intact Corneal's Intact bilateral -VII Facial strength: intact -VIII Hearing: intact -IX-X- Gag reflex present -X Palate:intact -XI Shoulder shrug: intact -XII Tongue movement: normal Funduscopic Exam: normal, no edema or exudates both eyes Motor Examination: Tone after evaluation of 4 limbs, the following findings applied: Mildly decreased L arm, weakness with dorsiflexion -Bulk: normal -Muscle Stretchafter evaluation of all limbs, and axial musculature the following findings applied: Drift: upward drift of the LUE -Reflexes: after evaluation of 4 limbs, the following findings applied ; normal all limbs -Plantar responce: Flexor bilaterally Sensory Intact to light touch, pain / temperature, proprioception, Coordination: Arms Normal finger to nose Legs Intact heel knee monge testing Tremors not present Gait abnormal, patient unable to walk due to acute circumstances / bedrest / safety concerns NIHSS 1a Level of consciousness: 0=alert; keenly responsive 1b. LOC questions: 0=Performs both tasks correctly 1c. LOC commands: 0 2. Best Gaze: 0=normal 3. Visual: 0=No visual loss 4. Facial Palsy: 0=Normal symmetric movement 5a. Motor left arm: 1 5b. Motor right arm: 0=No drift, limb holds 90 (or 45) degrees for full 10 seconds 6a. motor left le=No drift, limb holds 90 (or 45) degrees for full 10 seconds 6b Motor right le=No drift, limb holds 90 (or 45) degrees for full 10 seconds 7. Limb Ataxia: 0=Absent 8. Sensory: 0=Normal; no sensory loss 9. Best Language: 0=No aphasia, normal 10. Dysarthria: 0=Normal 11. Extinction and Inattention: 0=No abnormality 12. Distal motor function: 0=Normal Total: 1 Radiology Personal review: ORIGINAL FILMS FROM OSH MRI brain w/wo pending ECHO: pending ASSESSMENT / PLAN / SUGGESTIONS : L arm weakness/tingling/clumsiness -suspect R hemispheric vs R pontine stroke Dysphagia HTN Tobacco user Daily ETOH use PLAN: - Post TNK protocol - SBP <180 mmHg, DBP <105 mmHg - Complete bedrest x 24 hours - No antiplatelets/antiothrombotics in first 24 hours after TNK - NPO until swallow evaluation - Avoid invasive lines if able - Repeat CT head in 24 hours post TNK unless MRI Brain is performed - MRI brain with and without contrast (because of age) - TTE - PT/OT/ST -suggest B12, thiamine, folc acid Patient aware of plan as above. We will follow. 45 minutes of my independent time was spent preparing to see the patient, obtaining/reviewing separately obtained history, completing an appropriate medical examination of the patient, ordering medications/tests/procedures, documenting clinical information on the EMR, and/or coordinating care. Associated attestation - Kathrin Joshi MD - 06/18/2023 4:30 PM EST Neuro Critical Care / stroke Attending Patient personally discussed with the ED physician at the outside facility. Patient first presented with sudden onset of left arm tingling followed by weakness with inability to move the arm only with small movement of the fingers while in specific position that he uses at work there was no new to him symptoms persisted after CT CTA for what the outside Stroke service from the outside facility recommended TNK in which point the patient was transferred to us. On arrival to our department the patient had barely a mild left upper extremity pronation which was minimally noticeable. He was also hypertensive. Images are currently being uploaded from the outside facility he had a CT reportedly negative and a CTA head and neck also reported to be negative however I have not had a chance to see them in person Patient EKG essentially normal At this point the patient is being treated as a possible acute right hemispheric stroke and to prevent otherwise we will obtain an MRI of the brain and manage currently her his risk factors which include : hypertension Mild elevation of body mass index Completed stroke risk assessment Post TNK treatments blood pressure goals attained should be okay with systolic blood pressure up to 180 80 Starting tomorrow morning I personally interviewed and examined this patient , reviewed and attested the note for this patient. I reviewed the chart including MAR, labs, neuroimaging, other imaging studies and discussed my diagnostic impression and patient's plan of care with my KURT/resident, student and the consulting team and patient's family members/surrogate decision makers (in cases where the patient is incapacitated and unable to participate in their own care). [x] Encounter Face to Face [x] Consult [x] Level of care [x] V [x] will continue to follow Personal discussion of test results and plan of care with: Patient treatments and testing options informed consent and plan of care, ED physician, Family, ., . Thank you [facility] for the opportunity to be involved in this patient's care. [facility] Evaluation note Diagnosis Onset Date Change in voice acute Cough acute Lump in throat acute Tobacco dependence chronic [facility] Work Phone: Evaluation note* Diagnosis Stroke of unknown cause (HCC)- Primary Cerebrovascular accident (CVA), unspecified mechanism (HCC) Stroke of unknown cause (HCC) Acute left arterial ischemic stroke, ICA (internal carotid artery) (HCC) Unspecified cerebral artery occlusion with cerebral infarction documented in this encounter [facility] [employer] note* Diagnosis Stroke of unknown cause (HCC)- Primary documented in this encounter [facility] [place] [facility]* Diagnosis Stroke of unknown cause (HCC)- Primary documented in this encounter [facility] [place] [facility]* Diagnosis Stroke of unknown cause (HCC) documented in this encounter [facility]* Diagnosis Stroke of unknown cause (HCC)- Primary Stroke of unknown cause (HCC) documented in this encounter [facility] [place] [facility]* Diagnosis Stroke of unknown cause (HCC)- Primary Stroke of unknown cause (HCC) documented in this encounter [facility] noteNo assessment information availableSt. [facility] Phone: Hospital Discharge instructionsAmbulatory Orders* Ears, Nose and Throat Location: None Selected [facility] Work Phone: Reason for referral (narrative)No reason for referral information availableSt. [facility] Work Phone: Summary Purpose Family History No Family History Records Found Relationship Condition Age at Onset Recorded Date/T flower father Myocardial infarction 76 Cerebrovascular accident (CVA) Unknown Diabetes mellitus Unknown sister Myocardial infarction Unknown Advance Directives No Advanced Directives Records FoundLatest Code Status on File Code Status Date Activated Date Inactivated Comments Full Code 06/18/2023 1:38 PM 06/20/2023 3:55 PM Latest Code Status on File Code Status Date Activated Date Inactivated Comments Full Code 06/18/2023 1:38 PM 06/20/2023 3:55 PM Chief Complaint and Reason for Visit Chief Complaint Irritated Throat VOICE CHANGE, LUMP IN THROAT, SMOKER Reason for Visit Change in voice Cough Lump in throat Tobacco dependence Chief Complaint Admit Date Chest Tightness, Possible Anxiety October 292024 11:27am Reason for Referral Specialty Diagnoses / Procedures Referred By Contac t Referred To Contact Cardiology Diagnoses Stroke of unknown cause (HCC) Procedures Cardiac event monitor (30 days) DC XTRNL ECG & 48 HR RECORDING DC EXTERNAL ECG SCANNING ANALYSIS REPORT DC XTRNL ECG CONTINUOUS RHYTHM W/I&R UP TO 48 HRS DC XTRNL MOBILE CV TELEMETRY W/I&REPORT 30 DAYS DC XTRNL MOBILE CV TELEMETRY W/TECHNICAL SUPPORT Estefania Brown, BUSINESS RISK CONSULTANT - MANAGING DIRECTOR [address] [place] [address] Referral ID Status Reason Start Date Expiration Date V isits Requested Visits Authorized [id number] Pending Review 06/21/2023 06/15/2024 1 1 Referral ID Status Reason Start Date Expiration Date V isits Requested Visits Authorized [id number] Authorized 06/21/2023 06/15/2024 1 1 Referral ID Status Reason Start Date Expiration Date Visits Re quested Visits Authorized [id number] Closed 06/21/2023 06/15/2024 1 1 Additional Source Comments (unrecognized sect ion and content) No Status Records FoundNo Status Records FoundNo Status Records FoundNo Status Records Found INFORMATION SOURCE (unrecogn ized section and content) DATE CREATED AUTHOR 05/28/2019 [facility] DATE CREATED AUTHOR AUTHOR'S ORGANIZ ATION 06/30/2023 Junior Herbert [facility] DATE CREATED AUTHOR AUTHOR'S ORGANIZ ATION 09/27/2023 [facility] DATE CREATED AUTHOR AUTHOR'S ORGANIZ ATION [facility] Goals (unrecognized section and content) Goals may be documented in a n alternate sectionGoals may be documented in an alternate section Reason for Visit (unrecogniz ed section and content) Specialty Diagnoses / Procedures Referred By Tasha latif Referred To Contact Diagnoses Stroke of unknown cause (HCC) stroke Procedures . Stephie Collins MD [address] [place] [address] Referral ID Status Reason Start Date Expiration Date Visits Re quested Visits Authorized [id number] 1 1 Reason Onset Date Comments Hospital Follow-up 06/26/2023 Reason Onset Date Comments Hospital Follow-up 06/27/2023 Reason Onset Date Comments FYI 07/17/2023 Specialty Diagnoses / Procedures Referred By Tasha latif Referred To Contact Cardiology Diagnoses Stroke of unknown cause (HCC) Procedures Cardiac event monitor (30 days) DC XTRNL ECG & 48 HR RECORDING DC EXTERNAL ECG SCANNING ANALYSIS REPORT DC XTRNL ECG CONTINUOUS RHYTHM W/I&R UP TO 48 HRS DC XTRNL MOBILE CV TELEMETRY W/I&REPORT 30 DAYS DC XTRNL MOBILE CV TELEMETRY W/TECHNICAL SUPPORT [place] [address] Referral ID Status Reason Start Date Expiration Date Visits Re quested Visits Authorized [id number] Closed 06/21/2023 06/15/2024 1 1 Reason Onset Date Comments Hospital Follow-up 09/14/2023 90 day mRS Reason Onset Date Comments Hospital Follow-up 09/17/2023 90 day mRS= u nable to reach. Scheduled Active and Recently Administ ered Medications (unrecognized section and content) Medication Order 06/18/2023 06/19/2023 06/20/2023 amoxicillin-clavulanate (Augmentin) 875-125 MG per tablet 1 tablet 1 tablet (875 mg), Oral, Every 12 hours scheduled (2 times per day), First dose on Sun06/18/23 at 2100, For 10 days, Suspected Indication (Select all that apply): Other, Other Abx Indication: maxillary sinusitis 2147 (Given - Provider: Jeannine Ochoa RN) 0820 (Given - Provider: Rafaela Ding RN)2032 (Given - Provider: Angelique Davison RN) 0804 (Given - Provider: Megha Carreno, RN) aspirin chewable tablet 81 mg 81 mg, Oral, Daily, First dose on Sun06/19/23 at 1315 1336 (Given - Provider: Rafaela Ding RN) 0804 (Given - Provider: Megha Carreno, FRANCIA) atorvastatin (Lipitor) tablet 40 mg 40 mg, Oral, Daily, First dose on Sun06/18/23 at 1345, If NO ALLERGIES or INTOLERANCE TO STATINS REPORTED BY PATIENT OR DOCUMENTED HOLD IF NPO 1530 (Given - Provider: Araceli Fair RN) 0820 (Given - Provider: Rafaela Ding RN) 0804 (Given - Provider: Megha Carreno RN) clopidogrel (Plavix) tablet 75 mg 75 mg, Oral, Daily, First dose on Sun06/19/23 at 1315 1336 (Given - Provider: Rafaela Ding RN) 0804 (Given - Provider: Megha Carreno RN) enoxaparin (Lovenox) syringe 40 mg 40 mg, SubCUTAneous, Every 24 hours, First dose on Sun06/19/23 at 1800, Indication of Use: Prophylaxis-DVT/PE, Indications: Prophylaxis of Venous Thromboembolism 1725 (Given - Provider: Rafaela Ding RN) folic acid (Folvite) tablet 1 mg 1 mg, Oral, Daily, First dose on Sun06/18/23 at 1415 1530 (Given - Provider: Araceli Fair RN) 0820 (Given - Provider: Rafaela Ding RN) 0804 (Given - Provider: Megha Carreno RN) sodium chloride 0.9% (NS) flush 5-40 mL 5-40 mL, IntraVENous, Every 12 hours, First dose on Sun06/18/23 at 1345, For Line Patency: Peripheral IV = 5 mL; Midline or Central Line = 10 mL/lumen. If following IV push medication, administer flush at same rate as the IV push. Flush volume is determined by type of infusion therapy being given. For non-viscous solutions use: Peripheral IV = 5 mL Midline or Central Line = 10 mL/lumen For viscous solutions (i.e. blood components, parenteral nutrition, contrast media, or after obtaining blood sample) use: Peripheral IV = 10 mL Midline or Central Line = 20 mL/lumen 1345 (Given - Provider: Araceli Fair RN) 0208 (Given - Provider: Jeannine Ochoa RN)1338 (Given - Provider: Rafaela Ding, FRANCIA) 0145 (Given - Provider: Angelique Davison, FRANCIA)1345 (Canceled Entry - Provider: Automatic Discharge Provider - Comment: Automatically canceled at discontinue of medication order) thiamine (Vitamin B1) tablet 100 mg 100 mg, Oral, Daily, First dose on Sun06/18/23 at 1415 1530 (Given - Provider: Araceli Fair RN) 0820 (Given - Provider: Rafaela Ding, FRANCIA) 0804 (Given - Provider: Megha Carreno RN) Continuous Medication Order 06/18/2023 06/19/2023 06/20/2023 sodium chloride 0.9 % infusion 75 mL/hr, IntraVENous, Continuous, Starting on Sun06/18/23 at 1345 1418 (New Bag - Provider: Araceli Fair RN) 0432 (New Bag - Provider: Jeannine Ochoa RN) 0958 (Rate/Dose Change - Provider: ROOPA Jay CRNA)1001 (Continued by Anesthesia - Provider: ROOPA Jay CRNA)1031 (Stopped - Provider: ROOPA Jay CRNA) PRN Medication Order 06/18/2023 06/19/2023 06/20/2023 acetaminophen (Tylenol) suppository 650 mg(Linked Group 1) 650 mg, Rectal, Every 6 hours PRN, mild pain (1-3), fever, For temp greater than 100.4 F (38 C), Starting on Sun06/18/23 at 1336, Administer if oral route cannot be used. Maximum dose of acetaminophen is 4000 mg from all sources in 24 hours. acetaminophen (Tylenol) tablet 650 mg(Linked Group 1) 650 mg, Oral, Every 6 hours PRN, mild pain (1-3), fever, For temp greater than 100.4 F (38 C), Starting on Sun06/18/23 at 1336, Maximum dose of acetaminophen is 4000 mg from all sources in 24 hours. bisacodyl (Dulcolax) suppository 10 mg 10 mg, Rectal, Daily PRN, constipation, Starting on Sun06/18/23 at 1336, 2nd line for treatment of constipation - give scheduled (in addition to 1st line agent) if no bowel movement in past 48 hours gadobutrol (Gadavist) injection 9 mL (COMPLETED) 9 mL, IntraVENous, IMG once PRN, contrast, Starting on Sun06/20/23 at 0127, For 1 dose 0121 (Given - Provid er: Megha Day, RT (R)(MR)) hydrALAZINE (Apresoline) injection 10 mg 10 mg, IntraVENous, Every 1 hour PRN, high blood pressure, Starting on Sun06/18/23 at 1336, During or Post thrombolytic agent administration: For SBP greater than 180 or DBP greater than 105 on 2 consecutive measurements. Give over 2 minutes. Maximum 40 mg over 4 hours ipratropium-albuterol (Duo-Neb) 0.5-2.5 mg/3 mL nebulizer solution 3 mL 3 mL, Nebulization, Every 4 hours PRN, wheezing, Starting on Sun06/18/23 at 1446 labetalol (Normodyne,Trandate) injection 10 mg 10 mg, IntraVENous, Every 10 min PRN, high blood pressure, Starting on Sun06/18/23 at 1336, During or Post thrombolytic agent administration: For SBP greater than 180 or DBP greater than 105 on 2 consecutive measurements. Give over 1-2 minutes. IF HR < 65 use second option, hydralazine order ondansetron (Zofran) injection 4 mg(Linked Group 2) 4 mg, IntraVENous, Every 6 hours PRN, nausea, vomiting, Starting on Sun06/18/23 at 1336, 1st Line. Give IV if patient is unable to take orally. If inadequate response within 60 minutes, proceed to next-line agent or contact provider if no further options ordered. ondansetron ODT (Zofran-ODT) disintegrating tablet 4 mg(Linked Group 2) 4 mg, Oral, Every 8 hours PRN, nausea, vomiting, Starting on Sun06/18/23 at 1336, 1st Line. If inadequate response within 60 minutes, proceed to next-line agent or contact provider if no further options ordered. Patient should allow tablet to dissolve on tongue. Do not remove from blister pack until just before administering. polyethylene glycol (PEG) 3350 (Miralax) packet 17 g 17 g, Oral, Daily PRN, constipation, Starting on Sun06/18/23 at 1336, 1st line for treatment of constipation - give scheduled if no bowel movement in past 24 hours. sodium chloride 0.9% (NS) flush 5-40 mL 5-40 mL, IntraVENous, PRN, line care, After every IV line use, Starting on Sun06/18/23 at 1336, For Line Patency: Peripheral IV = 5 mL; Midline or Central Line = 10 mL/lumen. If following IV push medication, administer flush at same rate as the IV push. Flush volume is determined by type of infusion therapy being given. For non-viscous solutions use: Peripheral IV = 5 mL Midline or Central Line = 10 mL/lumen For viscous solutions (i.e. blood components, parenteral nutrition, contrast media, or after obtaining blood sample) use: Peripheral IV = 10 mL Midline or Central Line = 20 mL/lumen Linked Groups Order Group 1: acetaminophen (Tylenol) tablet 650 mgJump to med 650 mg, Oral, Every 6 hours PRN, mild pain (1-3), fever, For temp greater than 100.4 F (38 C), Starting on Sun06/18/23 at 1336, Maximum dose of acetaminophen is 4000 mg from all sources in 24 hours. Or acetaminophen (Tylenol) suppository 650 mgJump to med 650 mg, Rectal, Every 6 hours PRN, mild pain (1-3), fever, For temp greater than 100.4 F (38 C), Starting on Sun06/18/23 at 1336, Administer if oral route cannot be used. Maximum dose of acetaminophen is 4000 mg from all sources in 24 hours. Group 2: ondansetron ODT (Zofran-ODT) disintegrating tablet 4 mgJump to med 4 mg, Oral, Every 8 hours PRN, nausea, vomiting, Starting on 06/18/23 at 1336, 1st Line. If inadequate response within 60 minutes, proceed to next-line agent or contact provider if no further options ordered. Patient should allow tablet to dissolve on tongue. Do not remove from blister pack until just before administering. Or ondansetron (Zofran) injection 4 mgJump to med 4 mg, IntraVENous, Every 6 hours PRN, nausea, vomiting, Starting on Sun06/18/23 at 1336, 1st Line. Give IV if patient is unable to take orally. If inadequate response within 60 minutes, proceed to next-line agent or contact provider if no further options ordered. Care Teams (unrecognized sec tion and content) Victorian Literature Professor Relationship Specialty Start Date End Date David Sanz [address] [place] [id number] PCP - General 06/18/23 06/18/23 Tamy Hernandez [address] [place] [phone] PCP - General Internal Medicine 06/19/23 Victorian Literature Professor Relationship Specialty Start Date End Date Tamy Hernandez [address] [place] [address] PCP - General Internal Medicine 06/19/23 Victorian Literature Professor Relationship Specialty Start Date End Date Tamy Hernandez [address] [place] [address] PCP - General Internal Medicine 06/19/23 Victorian Literature Professor Relationship Specialty Start Date End Date Tamy Hernandez [address] [place] [address] PCP - General Internal Medicine 06/19/23 Victorian Literature Professor Relationship Specialty Start Date End Date Tamy Hernandez [address] [place] [address] PCP - General Internal Medicine 06/19/23 Victorian Literature Professor Relationship Specialty Start Date End Date Tamy Hernandez [address] [place] [address] PCP - General Internal Medicine 06/19/23 Victorian Literature Professor Relationship Specialty Start Date End Date Tamy Hernandez [address] [place] [phone] PCP - General Internal Medicine 06/19/23 Victorian Literature Professor Relationship Specialty Start Date End Date Tamy Hernandez [address] [place] [phone] PCP - General Internal Medicine 06/19/23 Victorian Literature Professor Relationship Specialty Start Date End Date Tamy Hernandez [address] [place] [phone] PCP - General Internal Medicine 06/19/23 Team Status: Active Member Role/Relationship Status Dates Dr. Tamy Hernandez MD Primary Care Provider Active Team Status: Inactive Member Role/Relationship Status Dates Dr. Tamy Hernandez MD Primary Care Provider Active Start: November 19, 2024 End: November 19, 2024 Dr. Tamy Hernandez MD Attending Provider Active Start: November 19, 2024 End: November 19, 2024 FOR RECORDS PERTAINING TO PATIENTS WHO ARE OR HAVE BEEN ENROLLED IN A CHEMICAL DEPENDENCY/SUBSTANCEABUSE PROGRAM, SOME INFORMATION MAY BE OMITTED. This clinical summary was aggregated from multiple sources. Caution should be exercised in using it in the provision of clinical care. This summary normalizes information from multiple sources, and as a consequence, information in this document may materially change the coding, format and clinical context of patient data. In addition, data may be omitted in some cases. CLINICAL DECISIONS SHOULD BE BASED ON THE PRIMARY CLINICAL RECORDS. [facility]. provides no warranty or guarantee of the accuracy or completeness of information in this document.
--- NOTE | 2024-12-12 18:39 | STRESSREP ---
Stress Test Report Exercise myocardial perfusion stress test. 64-year-old man with a history of chest tightness. Stress protocol: Resting EKG demonstrates normal sinus rhythm with a rate of 60 bpm resting blood pressure is 140/82 mmHg. The patient exercised according to the regular Slade protocol for a total duration of 8 minutes attaining a maximum heart rate of 137 bpm which was 87% of maximum predicted heart rate; the maximum workload was 10.1 metabolic equivalents. At rest there were no ST or T wave changes noted to suggest ischemia and at peak exercise upsloping ST changes only were noted which did not meet the criteria for ischemia. No clinical angina was noted the test was terminated due to the target heart rate being achieved/fatigue. The peak blood pressure was 182/70 mmHg. Rate-pressure product was 24,007. Myocardial perfusion protocol. 12 mCi of technetium 99m sestamibi was injected at rest. The patient exercised according to regular Slade protocol for total duration of 8 minutes and 6 seconds and at peak exercise 36 mCi of technetium 99m sestamibi was injected stress images were obtained stress and rest images were reconstructed in comparing the short axis vertical long and horizontal long axis. Gated images were also obtained. Perfusion SPECT analysis: Review of the stress images demonstrate normal uptake of tracer noted in all areas of the myocardium. The resting images similarly demonstrate normal uptake of tracer noted in all areas of the myocardium. No areas of reversibility are noted to suggest ischemia no previous infarct was noted. Gated SPECT analysis: The gated ejection fraction is 65% Conclusion: Normal exercise myocardial perfusion stress test at a high workload.
== END | disposition home or self-care (01) ==
PROVIDERS: PCP Internal Medicine; Referring Provider Internal Medicine; Visit Provider Internal Medicine
DX: R07.9 Chest pain, unspecified (principal); R94.31 Abnormal electrocardiogram [ECG] [EKG]
CPT/HCPCS: 78452; 93017; 93306; A9500; A4216

== ENCOUNTER → 2025-03-23 | Outpatient (CLI) | payer BC, SELFPAY ==
[2025-03-23 13:22] VITALS: BP 134/80; PULSE 74; RESP 16; O2SAT 98; BMI 26.5
--- NOTE | 2025-03-23 13:35 | CT_ITS ---
PROCEDURE: LIMITED CHEST CT CARDIAC ONLY 03/23/2025 REASON FOR EXAM: CHEST PAIN TECHNIQUE: Procedure Code: [id number] Modality: CT Procedure: LIMITED CHEST CT CARDIAC ONLY CONTRAST: Isovue 370 VOLUME: 57 mL One or more dose reduction techniques were used (e.g., Automated exposure control, adjustment of the mA and/or kV according to patient size, use of iterative reconstruction technique). RADIATION DOSE SUMMARY: DLP: 1377.46 mGycm COMPARISON: Chest x-ray of 02/27/2022 CT/Limited Chest CT Cardiac Only IMPRESSION: Mild calcification of the aortic arch is seen Limited imaging of the lungs demonstrates no acute process. No pleural effusion or pneumothorax is seen in visualized areas. No adenopathy is noted. The visualized upper abdomen demonstrates no significant abnormality. Reading Location: [id number]
[2025-03-23 13:45] VITALS: PULSE 70
[2025-03-23] MEDS: Nitroglycerin SL (ED/IMG/CATH) 0.4 MG TABLET SL (13:45)
[2025-03-23 13:50] VITALS: BP 110/70; PULSE 75; RESP 16; O2SAT 93
--- NOTE | 2025-03-23 19:24 | CCTA_ITS ---
CCTA w/Cont Coronary Arteries Date of Study:: 03/23/25 Chest pain Coronary Calcium Scoring: High-resolution Computed Tomographic imaging of the chest was performed on [03/23/2025], with particular attention paid to the coronary arteries. Intravenous contrast agent was administered per protocol and images reconstructed and displayed. LEFT MAIN CORONARY ARTERY: Arises from the left coronary cusp and bifurcates the left anterior descending artery and left circumflex artery [] LEFT ANTERIOR DESCENDING CORONARY ARTERY: Medium size vessel with proximal and mid calcification with at least moderate stenosis noted in the proximal and mid regions. The distal vessel is small and wraps around the apex of the ventricle. [] LEFT CIRCUMFLEX CORONARY ARTERY: Nondominant vessel with proximal and mid calcif ication with an area which appears to demonstrate high-grade stenosis in the mid segment of the circumflex artery. Rest of the vessel appears to have mild diffuse disease [] RIGHT CORONARY ARTERY: dominant vessel with mild to moderate diffuse plaque disease. Motion artifact makes determination of stenosis difficult. [] THORACIC AORTA: [] PULMONARY ARTERY: [] LEFT ATRIUM/APPENDAGE: [] MITRAL VALVE: [] AORTIC VALVE: [] LEFT VENTRICLE: [] CORONARY CALCIUM SCORE: [] Calcium Scoring Interpretation: Different methods to categorize the overall amount of coronary plaque. Overall amount CAC SIS Visual of coronary plaque P1 Mild -100 <2 1-2 vessels with mild amount of plaque P2 Moderate 101-300 3-4 1-2 vessels with moderate amount, 3 vessels with mild amount of plaque P3 Severe 301-999 5-7 3 vessels with moderate amount, 1 vessel with severe amount of plaque P4 Extensive >1000 >8 2-3 vessels with severe amount of plaque Conclusion: CT angiogram demonstrating at least two-vessel moderate coronary artery disease. Cannot exclude high-grade in the mid circumflex artery. Motion artifact is noted making exact delineation of anatomy difficult.
== END | disposition home or self-care (01) ==
LOC: CT 13:10
PROVIDERS: PCP Internal Medicine; Referring Provider Internal Medicine Cardiovascular Disease; Visit Provider Internal Medicine Cardiovascular Disease
DX: R07.89 Other chest pain (principal)
CPT/HCPCS: 75574; 76380; Q9967